=== PATIENT | female | born 1945 | race Caucasian/White ===

== ENCOUNTER 2020-11-13 13:07 | Outpatient (REF) | payer MEDICARE, SELFPAY ==
--- NOTE | 2020-11-13 13:12 | MM_ITS ---
EXAMINATION: MM SCREENING DIGITAL BREAST TOMOSYNTHESIS, BILATERAL CLINICAL INFORMATION: Screening. Asymptomatic. The lifetime risk of breast cancer based on the Tyrer-Cuzick Model is 3%. COMPARISON: Mammography: 07/23/2019, 01/19/2019, 07/20/2018, 07/06/2018, 07/04/2017 TECHNIQUE: Digital breast tomosynthesis is performed in both the craniocaudal and mediolateral oblique views along with computer-aided detection (CAD). Synthesized 2D images are generated from the tomosynthesis. FINDINGS: The breasts are heterogeneously dense, which may obscure small masses (ACR BI-RADS breast composition Category c). There are no significant masses, abnormal calcifications, or other abnormalities. Parenchymal pattern is similar to prior studies. No developing density. Again, there are scattered bilateral round and some coarse and ductal secretory calcifications. No significant changes. MM/MM tomosynthesis screening BI IMPRESSION: No significant changes from prior exams. ASSESSMENT: BI-RADS 2: Benign RECOMMENDATION: Routine annual mammography screening. This patient's information was entered into a reminder system with a target due date for their next mammogram.
== END 2020-11-13 13:08 | disposition home or self-care (01) ==
LOC: HO.MAMMO 13:07
PROVIDERS: PCP Internal Medicine; Visit Provider Internal Medicine
DX: Z12.31 Encounter for screening mammogram for malignant neoplasm of breast (principal)
CPT/HCPCS: 77063; 77067

== ENCOUNTER 2020-12-26 10:41 | Outpatient (REF) | payer MEDICARE, SELFPAY ==
[2020-12-26 14:47] LABS: MANUAL DIFF FLAG NO
[2020-12-26 14:58] LABS: Basophils Absolute Auto 0.1 X10*3/uL (0.0-0.2); Basophils Percent Auto 0.9 % (0-2); Eosinophils Absolute Auto 0.2 X10*3/uL (0.0-0.4); Eosinophils Percent Auto 2.4 % (0-4); Hematocrit 41.5 % (37-47); Hemoglobin 13.4 g/dl (12.0-16.0); Imm Gran Abs Auto 0.03 X10*3/uL (0.00-0.03); Imm Gran Pct Auto 0.4 % (0.0-0.4); Lymphocytes Absolute Auto 2.1 X10*3/uL (1.2-4.9); Lymphocytes Percent Auto 25.9 % (20-40); Mean Corpuscular HGB Conc 32.3 g/dl (31.0-35.0); Mean Corpuscular Hemoglobin 30.1 pg (27.0-33.0); Mean Corpuscular Volume 93.3 fL (80-98); Mean Platelet Volume 11.1 fL (9.4-12.3); Monocytes Absolute Auto 0.7 X10*3/uL (0.1-1.2); Monocytes Percent Auto 8.6 % (2-11); Neutrophils Absolute Auto 4.9 X10*3/uL (2.0-8.3); Neutrophils Percent Auto 61.8 % (45-73); Platelet Count 249 X10*3/uL (160-400); Red Blood Count 4.45 X10*6/uL (4.20-5.50); Red Cell Distribution Width 12.8 % (11.0-16.0); White Blood Count 7.9 X10*3/uL (4.8-10.8)
[2020-12-26 15:25] LABS: Alanine Aminotransferase 19 U/L (0-31); Aspartate Amino Transferase 20 U/L (5-31); Cholesterol 185 mg/dL; Glucose Fasting 79 mg/dL (60-99); HDL Cholesterol 40 mg/dL; LDL Cholesterol Calculated 99 mg/dl; Triglycerides 230 mg/dL
[2020-12-26 15:48] LABS: Vitamin D 25-OH Total 50.5 ng/mL (>30)
== END 2020-12-26 10:42 | disposition home or self-care (01) ==
LOC: HO.HMGCLDS 10:41
PROVIDERS: PCP Internal Medicine; Visit Provider Internal Medicine
DX: Z00.01 Encounter for general adult medical examination with abnormal findings (principal); E66.9 Obesity, unspecified; I10 Essential (primary) hypertension; M17.12 Unilateral primary osteoarthritis, left knee
CPT/HCPCS: 36415; 80061; 82306; 82947; 84450; 84460; 85025

== ENCOUNTER 2021-02-03 14:33 | Outpatient (REF) | payer MEDICARE, SELFPAY ==
[2021-02-03 16:30] LABS: Glucose Urine UA NEG (NEG); Leukocyte Esterase Urine 2+ (NEG); Nitrite Urine POS (NEG); Specific Gravity - Urine >= 1.030 (1.005-1.025); UACC Culture Trigger YES; Urine Blood NEG (NEG); Urine Ketones NEG (NEG); Urine Protein NEG (NEG-TRACE)
[2021-02-03 16:31] LABS: Appearance Urine CLEAR; Color Urine YELLOW
[2021-02-03 17:07] LABS: Bacteria Urine 3+ /LPF; RBC Urine 0 /HPF (0)
[2021-02-03 17:08] LABS: Calcium Oxalate Crystals Urine TRACE /LPF
== END 2021-02-03 14:34 | disposition home or self-care (01) ==
LOC: HO.HMGCLDS 14:33
PROVIDERS: PCP Internal Medicine; Visit Provider Internal Medicine
DX: R31.9 Hematuria, unspecified (principal); R35.0 Frequency of micturition
CPT/HCPCS: 81001; 81003; 87086; 87088; 87186

== ENCOUNTER 2021-03-14 15:11 | Outpatient (REF) | payer MEDICARE, SELFPAY | END 2021-03-14 15:12 | disposition home or self-care (01) | LOC: HO.LAB 15:11 | PROVIDERS: Visit Provider Hospitalist | DX: R30.0 Dysuria (principal) | CPT/HCPCS: 87086; 87088; 87186 ==

== ENCOUNTER 2021-06-19 14:35 | Outpatient (REF) | payer MEDICARE, SELFPAY | END 2021-06-19 14:36 | disposition home or self-care (01) | LOC: HO.LNP 14:35 | PROVIDERS: Visit Provider Hospitalist | DX: R30.0 Dysuria (principal) | CPT/HCPCS: 87086; 87088; 87186 ==

== ENCOUNTER 2021-07-10 10:58 | Outpatient (REF) | payer MEDICARE, SELFPAY ==
[2021-07-10 14:19] LABS: Alanine Aminotransferase 36 U/L (0-31); Anion Gap 15 (12-20); Aspartate Amino Transferase 29 U/L (5-31); Blood Urea Nitrogen 31 mg/dL (9-16); Calcium 10.4 mg/dL (8.4-10.2); Carbon Dioxide 22 mmol/L (22-29); Chloride 106 mmol/L (96-108); Cholesterol 192 mg/dL; Estimated Glomerular Filt Rate 48; Glucose Fasting 98 mg/dL (60-99); HDL Cholesterol 41 mg/dL; LDL Cholesterol Calculated 107 mg/dl; Potassium 3.8 mmol/L (3.3-5.1); Sodium 139 mmol/L (135-145); Triglycerides 223 mg/dL
[2021-07-10 14:41] LABS: Vitamin D 25-OH Total 56.8 ng/mL (>30)
== END 2021-07-10 10:59 | disposition home or self-care (01) ==
LOC: HO.HMGCLDS 10:58
PROVIDERS: PCP Internal Medicine; Visit Provider Internal Medicine
DX: E66.9 Obesity, unspecified (principal); I10 Essential (primary) hypertension; Z78.0 Asymptomatic menopausal state
CPT/HCPCS: 36415; 80048; 80061; 82306; 84450; 84460

== ENCOUNTER 2021-09-29 08:02 | Outpatient (REF) | payer MEDICARE, SELFPAY ==
[2021-09-29 11:51] LABS: Alanine Aminotransferase 31 U/L (0-31); Anion Gap 15 (12-20); Aspartate Amino Transferase 25 U/L (5-31); Blood Urea Nitrogen 20 mg/dL (9-16); Calcium 10.2 mg/dL (8.4-10.2); Carbon Dioxide 27 mmol/L (22-29); Chloride 103 mmol/L (96-108); Cholesterol 195 mg/dL; Estimated Glomerular Filt Rate 57; Glucose Fasting 94 mg/dL (60-99); HDL Cholesterol 41 mg/dL; LDL Cholesterol Calculated 108 mg/dl; Potassium 4.1 mmol/L (3.3-5.1); Sodium 141 mmol/L (135-145); Triglycerides 234 mg/dL
[2021-09-29 12:20] LABS: Vitamin D 25-OH Total 59.8 ng/mL (>30)
== END 2021-09-29 08:03 | disposition home or self-care (01) ==
LOC: HO.HMGCLDS 08:02
PROVIDERS: PCP Internal Medicine; Visit Provider Internal Medicine
DX: E66.9 Obesity, unspecified (principal); I10 Essential (primary) hypertension; Z78.0 Asymptomatic menopausal state
CPT/HCPCS: 36415; 80048; 80061; 82306; 84450; 84460

== ENCOUNTER 2021-11-16 12:21 | Outpatient (REF) | payer MEDICARE, SELFPAY ==
[2021-11-16 14:08] LABS: Anion Gap 11 (12-20); Blood Urea Nitrogen 19 mg/dL (9-16); Calcium 10.8 mg/dL (8.4-10.2); Carbon Dioxide 27 mmol/L (22-29); Chloride 106 mmol/L (96-108); Estimated Glomerular Filt Rate 59; Phosphorus 2.7 mg/dL (2.7-4.5); Potassium 4.3 mmol/L (3.3-5.1); Sodium 140 mmol/L (135-145)
[2021-11-16 14:27] LABS: Creatinine Urine 114.22 mg/dL; Protein/Creatinine Ratio, Ur 0.09 (<0.2); Total Protein Urine Random 10 mg/dL (<12)
[2021-11-16 14:28] LABS: Creatinine Urine 114.34 mg/dL; Microalbum/Creatinine Ratio Ur 36.7 ug/mg cr
[2021-11-16 15:03] LABS: Renal w Reflex Lab Use Only Order verified
== END 2021-11-16 12:22 | disposition home or self-care (01) ==
LOC: HO.HMGCLDS 12:21
PROVIDERS: PCP Internal Medicine; Visit Provider Internal Medicine Nephrology
DX: I12.9 Hypertensive chronic kidney disease with stage 1 through stage 4 chronic kidney disease, or unspecified chronic kidney disease (principal); N18.1 Chronic kidney disease, stage 1; R80.8 Other proteinuria
CPT/HCPCS: 36415; 80051; 82043; 82310; 82565; 84100; 84156; 84520

== ENCOUNTER 2021-11-24 12:14 | Outpatient (REF) | payer MEDICARE, SELFPAY ==
--- NOTE | ~2021-11-24 | MM_ITS ---
EXAMINATION: MM SCREENING DIGITAL BREAST TOMOSYNTHESIS, BILATERAL CLINICAL INFORMATION: Screening. Asymptomatic. The lifetime risk of breast cancer based on the Tyrer-Cuzick Model is 3%. COMPARISON: Mammography: 11/13/2020, 07/23/2019, 01/19/2019, 07/20/2018, 07/06/2018; targeted left breast ultrasound 07/20/2018 TECHNIQUE: Digital breast tomosynthesis is performed in both the craniocaudal and mediolateral oblique views along with computer-aided detection (CAD). Synthesized 2D images are generated from the tomosynthesis. FINDINGS: The breasts are heterogeneously dense, which may obscure small masses (ACR BI-RADS breast composition Category c). Parenchymal pattern is similar to prior studies. Breast tissue composition borders on average fibroglandular. There is no developing density or architectural abnormality. Again, there are scattered bilateral round and ductal secretory calcifications. The axilla are unremarkable. There are some dermal lesions again noted overlying the posterior lower outer left breast better appreciated on tomography. No significant changes. MM/MM tomosynthesis screening BI IMPRESSION: No significant changes from prior studies. ASSESSMENT: BI-RADS 2: Benign RECOMMENDATION: Routine annual mammography screening. This patient's information was entered into a reminder system with a target due date for their next mammogram.
== END 2021-11-24 12:15 | disposition home or self-care (01) ==
LOC: HO.MAMMO 12:14
PROVIDERS: PCP Internal Medicine; Visit Provider Internal Medicine
DX: Z12.31 Encounter for screening mammogram for malignant neoplasm of breast (principal)
CPT/HCPCS: 77063; 77067

== ENCOUNTER 2021-12-22 08:21 | Outpatient (REF) | payer MEDICARE, SELFPAY ==
--- NOTE | ~2021-12-22 | MM_ITS ---
EXAMINATION: BONE DENSITOMETRY CLINICAL INDICATION: Obesity, unspecified. COMPARISON: Previous BD dated 07/06/2018 and baseline BD dated 09/11/2007. TECHNIQUE: Using a [employer] DXA System (software version: 13.1) manufactured by [employer], dual-energy x-ray absorptiometry was performed of the lumbar spine and left hip. The images are of good technical quality. Summary results are attached. FINDINGS: AP SPINE L1-L2 (excluding L3 and L4): The data of L1-L4 has been changed to exclude the L3 and L4 vertebral bodies, because degenerative changes at these levels may cause overestimation of lumbar spine density. Current: BMD 1.064 g/cm2, Z-score 0.1, T-score -0.8, normal, 4.5% decrease from previous, 9.8% increase from baseline (<5% change is not significant). Prior: BMD 1.114 g/cm2. Baseline: BMD 0.969 g/cm2. LEFT FEMUR, NECK: Current: BMD 0.857 g/cm2, Z-score 0.2, T-score -1.3, osteopenia. Prior: BMD 0.862 g/cm2. Baseline: BMD 0.867 g/cm2. LEFT FEMUR, TOTAL: Current: BMD 0.902 g/cm2, Z-score 0.4, T-score -0.8, normal, 1.1% decrease from previous, 4.4% decrease from baseline (<5% change is not significant). Prior: BMD 0.912 g/cm2. Baseline: BMD 0.944 g/cm2. IDENTIFIED RISK FACTORS: Menopause, renal, Thiazide. HISTORY OF FRACTURE: None listed. MEDICATIONS: Calcium, multivitamin. MM/XR DEXA axial skeleton IMPRESSION: 1. DIAGNOSIS: Osteopenia based on the lowest T-score value of -1.3 in the femoral neck applying World Health Organization criteria. 2. 10-YEAR FRACTURE RISK PREDICTION, FRAX: Major osteoporotic fracture (clinical spine, forearm, hip or shoulder) 10.7%. Hip fracture 2.0%. 3. Treatment Recommendations: NOF guidelines recommend consideration for treatment in postmenopausal women and men age 50 and older presenting with the following: -A hip or vertebral (clinical or morphometric) fracture. -T-score less than or equal to -2.5 at the femoral neck or spine after appropriate evaluation to exclude secondary causes. -Low bone mass at the hip or spine and a 10-year fracture probability by FRAX of greater than or equal to 3% for hip fracture or greater than or equal to 20% for major osteoporotic fracture based on the [place] adapted WHO algorithm. 4. Other Recommendations: All treatment decisions require clinical judgment and consideration of individual patient factors, including patient preferences, comorbidities, previous drug use, risk factors not captured in the FRAX model (e.g. frailty, falls, vitamin D deficiency, increased bone turnover, interval significant decline in bone density) and possible under or overestimation of fracture risk by FRAX. Additional medical evaluation for secondary cause of low bone mineral density may be appropriate. FUTURE SCAN RECOMMENDATION: People with diagnosed cases of osteoporosis or at high risk for fracture should have regular bone mineral density tests. For patients eligible for Medicare, routine testing is allowed once every 2 years. The testing frequency can be increased to one year for patients who have rapidly progressing disease, those who are receiving or discontinuing medical therapy to restore bone mass, or have additional risk factors.
== END 2021-12-22 08:22 | disposition home or self-care (01) ==
LOC: HO.MAMMO 08:21
PROVIDERS: PCP Internal Medicine; Visit Provider Internal Medicine
DX: Z13.820 Encounter for screening for osteoporosis (principal); M85.80 Other specified disorders of bone density and structure, unspecified site; Z78.0 Asymptomatic menopausal state; E66.9 Obesity, unspecified; Z79.899 Other long term (current) drug therapy
CPT/HCPCS: 77080

== ENCOUNTER 2021-12-25 10:28 | Outpatient (REF) | payer MEDICARE, SELFPAY ==
[2021-12-25 12:36] LABS: Cholesterol 220 mg/dL; HDL Cholesterol 40 mg/dL; LDL Cholesterol Calculated 115 mg/dl; Triglycerides 327 mg/dL
[2021-12-28 16:41] LABS: PTHI 4 pg/mL (14-64)
[2021-12-28 17:31] LABS: Calcium, Ionized 5.9 mg/dL (4.8-5.6)
== END 2021-12-25 10:29 | disposition home or self-care (01) ==
LOC: HO.HMGCLDS 10:28
PROVIDERS: Visit Provider Internal Medicine
DX: E78.1 Pure hyperglyceridemia (principal); E83.52 Hypercalcemia
CPT/HCPCS: 36415; 80061; 82330; 83970

== ENCOUNTER 2022-01-18 11:55 | Outpatient (REF) | payer MEDICARE, SELFPAY ==
[2022-01-18 14:36] LABS: TSH reflex Free T4 2.55 uIU/mL (0.32-4.0)
[2022-01-19 13:27] LABS: PTHI 34 pg/mL (16-77)
[2022-01-20 14:47] LABS: Calcium, Ionized 5.2 mg/dL (4.8-5.6)
== END 2022-01-18 11:56 | disposition home or self-care (01) ==
LOC: HO.HMGCLDS 11:55
PROVIDERS: Visit Provider Internal Medicine
DX: E83.52 Hypercalcemia (principal); R79.89 Other specified abnormal findings of blood chemistry; R53.83 Other fatigue
CPT/HCPCS: 36415; 82330; 83970; 84443

== ENCOUNTER 2022-03-30 11:09 | Outpatient (REF) | payer MEDICARE, SELFPAY ==
[2022-03-30 14:01] LABS: Anion Gap 13 (12-20); Blood Urea Nitrogen 20 mg/dL (9-16); Calcium 9.7 mg/dL (8.4-10.2); Carbon Dioxide 24 mmol/L (22-29); Chloride 108 mmol/L (96-108); Cholesterol 218 mg/dL; Estimated Glomerular Filt Rate > 60; Glucose Fasting 102 mg/dL (60-99); HDL Cholesterol 37 mg/dL; LDL Cholesterol Calculated 119 mg/dl; Potassium 3.8 mmol/L (3.3-5.1); Sodium 141 mmol/L (135-145); Triglycerides 313 mg/dL
[2022-04-02 20:36] LABS: Calcium, Ionized 5.3 mg/dL (4.8-5.6)
== END 2022-03-30 11:10 | disposition home or self-care (01) ==
LOC: HO.HMGCLDS 11:09
PROVIDERS: Visit Provider Internal Medicine
DX: E78.1 Pure hyperglyceridemia (principal); E83.52 Hypercalcemia
CPT/HCPCS: 36415; 80048; 80061; 82330

== ENCOUNTER 2022-10-01 09:45 | Outpatient (REF) | payer MEDICARE, SELFPAY ==
[2022-10-01 12:27] LABS: Estimated Average Glucose 100 mg/dL; Hemoglobin A1c % 5.1 %
[2022-10-01 14:35] LABS: Alanine Aminotransferase 18 U/L (0-31); Anion Gap 12 (12-20); Aspartate Amino Transferase 17 U/L (5-31); Blood Urea Nitrogen 15 mg/dL (9-16); Calcium 9.4 mg/dL (8.4-10.2); Carbon Dioxide 23 mmol/L (22-29); Chloride 110 mmol/L (96-108); Cholesterol 186 mg/dL; Estimated Glomerular Filt Rate > 60; Glucose Fasting 95 mg/dL (60-99); HDL Cholesterol 36 mg/dL; LDL Cholesterol Calculated 107 mg/dl; Potassium 3.8 mmol/L (3.3-5.1); Sodium 141 mmol/L (135-145); Triglycerides 216 mg/dL; Vitamin D 25-OH Total 39.6 ng/mL (>30)
== END 2022-10-01 09:46 | disposition home or self-care (01) ==
LOC: HO.HMGCLDS 09:45
PROVIDERS: PCP Internal Medicine; Visit Provider Internal Medicine
DX: E78.1 Pure hyperglyceridemia (principal); I10 Essential (primary) hypertension; N95.9 Unspecified menopausal and perimenopausal disorder; R73.01 Impaired fasting glucose; E66.9 Obesity, unspecified
CPT/HCPCS: 36415; 80048; 80061; 82306; 83036; 84450; 84460

== ENCOUNTER 2022-10-23 11:45 | Outpatient (REF) | payer MEDICARE, SELFPAY ==
[2022-10-23 14:08] LABS: Appearance Urine Cloudy; Color Urine Yellow; Glucose Urine UA Negative (Negative); Leukocyte Esterase Urine Large (3+) (Negative); Nitrite Urine Positive (Negative); PH 5.5 (5.0-9.0); UMIC TRIGGER UACC YES; Urine Blood Trace (Negative); Urine Ketones Negative (Negative); Urine Protein Trace mg/dL (Neg-Trace)
[2022-10-23 14:11] LABS: Bacteria Urine 4+ (None Seen); RBC Urine 0-2 /HPF (0-2); Squamous Epithelial Cell Urine 0-2 /HPF (0-2); UACC Culture Trigger YES; WBC Urine >50 /HPF (0-5)
== END 2022-10-23 11:46 | disposition home or self-care (01) ==
LOC: HO.HMGCLDS 11:45
PROVIDERS: PCP Internal Medicine; Visit Provider Internal Medicine
DX: R30.0 Dysuria (principal)
CPT/HCPCS: 81001; 87086; 87088; 87186

== ENCOUNTER 2022-11-08 14:07 | Outpatient (REF) | payer MEDICARE, SELFPAY ==
[2022-11-08 14:25] LABS: Appearance Urine Cloudy; Color Urine Yellow; Glucose Urine UA Negative (Negative); Leukocyte Esterase Urine Large (3+) (Negative); Nitrite Urine Positive (Negative); PH 5.5 (5.0-9.0); UMIC TRIGGER UACC YES; Urine Blood Trace (Negative); Urine Ketones Negative (Negative); Urine Protein 30 (1+) mg/dL (Neg-Trace)
[2022-11-08 14:47] LABS: Bacteria Urine 4+ (None Seen); RBC Urine 0-2 /HPF (0-2); Squamous Epithelial Cell Urine 0-2 /HPF (0-2); UACC Culture Trigger YES; WBC Urine >50 /HPF (0-5)
== END 2022-11-08 14:08 | disposition home or self-care (01) ==
LOC: HO.LNP 14:07
PROVIDERS: Visit Provider Nurse Practitioner Family
DX: N39.0 Urinary tract infection, site not specified (principal)
CPT/HCPCS: 81001; 87086; 87088; 87186

== ENCOUNTER 2022-11-25 18:24 | Outpatient (REF) | payer MEDICARE, SELFPAY ==
[2022-11-25 18:35] LABS: Appearance Urine Clear; Color Urine Yellow; Glucose Urine UA Negative (Negative); Leukocyte Esterase Urine Moderate (2+) (Negative); Nitrite Urine Positive (Negative); PH 5.5 (5.0-9.0); UMIC TRIGGER UACC YES; Urine Blood Negative (Negative); Urine Ketones Negative (Negative); Urine Protein Negative (Neg-Trace)
[2022-11-25 18:41] LABS: Bacteria Urine 4+ (None Seen); Hyaline Casts Urine 0-2 /LPF (0-2); UACC Culture Trigger YES; WBC Urine >50 /HPF (0-5)
== END 2022-11-25 18:25 | disposition home or self-care (01) ==
LOC: HO.LNP 18:24
PROVIDERS: Visit Provider Nurse Practitioner Family
DX: N39.0 Urinary tract infection, site not specified (principal)
CPT/HCPCS: 81001; 87086; 87088; 87186

== ENCOUNTER 2022-11-30 11:11 | Outpatient (REF) | payer MEDICARE, SELFPAY ==
--- NOTE | ~2022-11-30 | MM_ITS ---
EXAMINATION: MM SCREENING DIGITAL BREAST TOMOSYNTHESIS, BILATERAL CLINICAL INFORMATION: Screening. Asymptomatic. The lifetime risk of breast cancer based on the Tyrer-Cuzick Model is 5%. COMPARISON: Mammography: 11/24/2021, 11/13/2020, 07/23/2019 TECHNIQUE: Digital breast tomosynthesis is performed in both the craniocaudal and mediolateral oblique views along with computer-aided detection (CAD). Synthesized 2D images are generated from the tomosynthesis. Additional right MLO view is provided. FINDINGS: The breasts are heterogeneously dense, which may obscure small masses (ACR BI-RADS breast composition Category c). There are no significant masses, abnormal calcifications, or other abnormalities. Parenchymal pattern is similar to prior studies. There is no developing density or architectural abnormality. Again, there are scattered bilateral benign round and ductal secretory calcifications. The axilla are unremarkable. Scattered dermal lesions are seen overlying the breasts particularly lower outer left. MM/MM tomosynthesis screening BI IMPRESSION: No mammographic evidence of malignancy. ASSESSMENT: BI-RADS 2: Benign RECOMMENDATION: Routine annual mammography screening. This patient's information was entered into a reminder system with a target due date for their next mammogram.
== END 2022-11-30 11:12 | disposition home or self-care (01) ==
LOC: HO.MAMMO 11:11
PROVIDERS: Visit Provider Internal Medicine
DX: Z12.31 Encounter for screening mammogram for malignant neoplasm of breast (principal)
CPT/HCPCS: 77063; 77067

== ENCOUNTER → 2022-12-09 12:40 | Outpatient (BNVA) | payer MEDICARE, SELFPAY | PROVIDERS: PCP Internal Medicine; Visit Provider Urology | DX: N39.0 Urinary tract infection, site not specified (principal); N20.0 Calculus of kidney | CPT/HCPCS: 51798; 99202 ==

== ENCOUNTER 2022-12-10 12:40 | Outpatient (REF) | payer MEDICARE, SELFPAY | END 2022-12-10 12:41 | disposition home or self-care (01) | LOC: HO.LNP 12:40 | PROVIDERS: Visit Provider Urology | DX: N39.0 Urinary tract infection, site not specified (principal) | CPT/HCPCS: 87086; 87088 ==

== ENCOUNTER 2023-01-05 15:07 | Outpatient (REF) | payer MEDICARE, SELFPAY ==
--- NOTE | ~2023-01-05 | CT_ITS ---
EXAMINATION: CT ABDOMEN AND PELVIS WITHOUT CONTRAST CLINICAL INFORMATION: Urinary tract infection COMPARISON: None available. TECHNIQUE: Multidetector volumetric imaging was performed from the superior aspect of the liver through the pubic symphysis. Sagittal and coronal reformatted images were obtained on the technologist's workstation. This CT examination was performed using dose optimization techniques as appropriate, variously including the following: *Automated exposure control *Adjustment of mA and/or kV according to patient size (this includes techniques or standardized protocols for targeted exams where dose is matched to indication/reason for exam; i.e. extremities or head) *Use of iterative reconstruction technique DLP: 506 mGy-cm FINDINGS: LUNG BASES: The visualized lung bases are unremarkable. LIVER, GALLBLADDER, AND BILIARY TREE: In the right hepatic lobe there is a 6.7 x 5.5 cm hypoattenuating liver lesion with internal densities which may reflect calcifications versus septations. No intrahepatic biliary ductal dilatation. Cholelithiasis, no CT findings of acute cholecystitis. PANCREAS: Unremarkable. SPLEEN: Unremarkable. ADRENAL GLANDS: Unremarkable. KIDNEYS AND URETERS: The kidneys are normal in size, shape, and attenuation. No hydronephrosis, hydroureter, or calculi seen. No perinephric stranding. BLADDER: Unremarkable. GASTROINTESTINAL TRACT: Mild dilation of the gastric antrum measuring 3.7 x 3.4 disease may reflect peptic ulcerative disease. Large bowel is unremarkable. Appendix is not visualized, however no inflammatory changes are seen in the right lower quadrant ABDOMINAL WALL: No significant hernia is appreciated. LYMPH NODES: Normal. VASCULAR: Unremarkable. PELVIC VISCERA: Unremarkable. OSSEOUS STRUCTURES: Unremarkable. CT/CT abdomen pelvis wo IV con IMPRESSION: 1. Mild dilation of the gastric antrum measuring 3.7 x 3.4 cm may reflect peptic ulcerative disease. 2. Cholelithiasis, no CT findings of acute cholecystitis. 3. 6.7 cm hypoattenuating liver lesion with internal densities which may reflect calcifications versus septations. Recommend further evaluation with CT or MRI liver protocol.
== END 2023-01-05 15:08 | disposition home or self-care (01) ==
LOC: HO.CT 15:07
PROVIDERS: Visit Provider Urology
DX: N39.0 Urinary tract infection, site not specified (principal)
CPT/HCPCS: 74176; 99212

== ENCOUNTER 2023-01-13 09:00 | Outpatient (REF) | payer MEDICARE, SELFPAY ==
[2023-01-13 11:44] LABS: Anion Gap 15 (12-20); Blood Urea Nitrogen 33 mg/dL (9-16); Calcium 10.1 mg/dL (8.4-10.2); Carbon Dioxide 20 mmol/L (22-29); Chloride 109 mmol/L (96-108); Estimated Glomerular Filt Rate 40; Potassium 4.1 mmol/L (3.3-5.1); Sodium 140 mmol/L (135-145)
[2023-01-13 12:02] LABS: Creatinine Urine 177.75 mg/dL; Microalbum/Creatinine Ratio Ur 36.5 ug/mg cr
== END 2023-01-13 09:01 | disposition home or self-care (01) ==
LOC: HO.HMGCLDS 09:00
PROVIDERS: PCP Internal Medicine; Visit Provider Internal Medicine Nephrology
DX: R80.9 Proteinuria, unspecified (principal)
CPT/HCPCS: 36415; 80051; 82043; 82310; 82565; 84520

== ENCOUNTER 2023-02-03 11:30 | Outpatient (REF) | payer MEDICARE, SELFPAY ==
[2023-02-03 14:45] LABS: Alanine Aminotransferase 16 U/L (0-31); Alkaline Phosphatase 88 U/L (39-117); Aspartate Amino Transferase 18 U/L (5-31); Bilirubin Direct 0.2 mg/dL (0.0-0.5); Bilirubin Total 0.6 mg/dL (0.0-1.0); Cholesterol 199 mg/dL; HDL Cholesterol 39 mg/dL; LDL Cholesterol Calculated 124 mg/dl; Total Protein 6.6 g/dL (6.5-8.0); Triglycerides 184 mg/dL
== END 2023-02-03 11:31 | disposition home or self-care (01) ==
LOC: HO.HMGCLDS 11:30
PROVIDERS: PCP Internal Medicine; Visit Provider Internal Medicine
DX: E78.1 Pure hyperglyceridemia (principal); R16.0 Hepatomegaly, not elsewhere classified
CPT/HCPCS: 36415; 80061; 80076

== ENCOUNTER 2023-02-08 11:37 | Outpatient (REF) | payer MEDICARE, SELFPAY ==
[2023-02-08 14:20] LABS: Blood Urea Nitrogen 15 mg/dL (9-16); Estimated Glomerular Filt Rate > 60
[2023-02-08 14:39] LABS: Carcinoembryonic Antigen < 1.73 ng/mL
[2023-02-11 12:53] LABS: Alpha Fetoprotein 3.2 ng/mL
== END 2023-02-08 11:38 | disposition home or self-care (01) ==
LOC: HO.HMGCLDS 11:37
PROVIDERS: PCP Internal Medicine; Visit Provider Internal Medicine
DX: R93.2 Abnormal findings on diagnostic imaging of liver and biliary tract (principal)
CPT/HCPCS: 36415; 82105; 82378; 82565; 84520

== ENCOUNTER 2023-02-23 13:21 | Outpatient (REF) | payer MEDICARE, SELFPAY ==
--- NOTE | ~2023-02-23 | CT_ITS ---
EXAMINATION: CT ABDOMEN WITHOUT AND WITH CONTRAST CLINICAL INFORMATION: Abnormal liver CT COMPARISON: Previous CT of the abdomen and pelvis December 2022 TECHNIQUE: Contiguous axial thin section helical images of the abdomen were performed before and after the administration of oral contrast and 85 mL of Omnipaque 350 intravenous contrast. The data set was reformatted in the coronal and sagittal planes and reviewed on an independent workstation. This CT examination was performed using dose optimization techniques as appropriate, variously including the following: *Automated exposure control *Adjustment of mA and/or kV according to patient size (this includes techniques or standardized protocols for targeted exams where dose is matched to indication/reason for exam; i.e. extremities or head) *Use of iterative reconstruction technique DLP: 680 mGy-cm FINDINGS: LUNG BASES: 3 mm peripheral or subpleural left lower lobe nodule. LIVER, GALLBLADDER, AND BILIARY TREE: There is a large cyst seen in the central liver measuring 5.5 x 6.5 cm. This has small peripheral calcifications. Hounsfield units precontrast measure 18. Hounsfield units postcontrast measure between 21 and 22 with no appreciable enhancement. This is suggestive of a minimally complex cyst. There is a smaller subcentimeter approximately 4 mm lesion high in the dome of the liver axial image 10 series 4. This probably represents a small cyst as well. There is fatty infiltration of the liver. The liver is normal in contour. There is a gallstone in the gallbladder. There is no biliary duct dilatation. 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 The pancreas is otherwise normal. SPLEEN: Normal ADRENAL GLANDS AND KIDNEYS: Slight enlargement and nodularity of the left adrenal gland. The right adrenal gland is normal. BOWEL LOOPS: Duodenal diverticulum as described above. Visualized bowel is otherwise unremarkable. LYMPH NODES: Normal. VASCULAR: Dilated proximal celiac axis measuring 1.2 cm and moderate stenosis of the celiac axis origin. BONES: Degenerative changes of the spine and mild scoliosis. CT/CT abdomen wo/w IV con IMPRESSION: 5.5 x 6.5 cm minimally complex cyst in the central liver. Probable smaller subcentimeter cyst high in the dome of the liver. Gallstone. 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 Fleischner guidelines were followed.
[2023-02-23] MEDS: iohexoL 350 MG/ML 100 ML INFUS..BTL IV (14:11)
== END 2023-02-23 13:22 | disposition home or self-care (01) ==
LOC: HO.CT 13:21
PROVIDERS: PCP Internal Medicine; Visit Provider Internal Medicine
DX: R93.2 Abnormal findings on diagnostic imaging of liver and biliary tract (principal)
CPT/HCPCS: 74170; Q9967

== ENCOUNTER → 2023-03-09 11:22 | Outpatient (BNVA) | payer MEDICARE, SELFPAY | PROVIDERS: PCP Internal Medicine; Visit Provider Urology | DX: N39.0 Urinary tract infection, site not specified (principal) | CPT/HCPCS: 52000 ==

== ENCOUNTER 2023-03-11 14:23 | Outpatient (REF) | payer MEDICARE, SELFPAY | END 2023-03-11 14:24 | disposition home or self-care (01) | LOC: HO.HMGCLDS 14:23 | PROVIDERS: PCP Internal Medicine; Visit Provider Urology | DX: N39.0 Urinary tract infection, site not specified (principal) | CPT/HCPCS: 88121 ==

== ENCOUNTER 2023-03-28 08:55 | Day surgery (SDC) | payer MEDICARE, SELFPAY ==
--- NOTE | 2023-03-25 12:08 | HO.ANESPROP2 ---
Documented by User: Radha Raymond NP 03/25/23 12:09 HPI - Anesthesia Eval Consult details Narrative: 77yo F for Upper Endoscopy and Colonoscopy Stable at 01/2023 renal visit (HTN, Microalbuminuria) [facility] Active Problems Active Problems: All Active Problems (Updated 01/19/23 @ 10:35 by Neeta Pierce MD) Cholelithiasis (Acute) Liver mass (Acute) Vaginal atrophy (Acute) Recurrent UTI (urinary tract infection) (Acute) Impaired fasting glucose (Acute) Hypertriglyceridemia (Acute) Vaginal dryness, menopausal (Acute) Obesity (Acute) Seasonal allergies (Acute) Essential hypertension (Acute) Osteoarthritis of left knee (Acute) Past Medical History Medical History Cholelithiasis Essential hypertension History of basal cell carcinoma Hypertriglyceridemia Impaired fasting glucose Liver mass Obesity Osteoarthritis of left knee Recurrent UTI (urinary tract infection) Right nephrolithiasis Seasonal allergies Vaginal dryness, menopausal Family History Family History Father Essential hypertension CVA (cerebral vascular accident) CVD (cardiovascular disease) Mother Essential hypertension Bone cancer Surgical History Surgical History (Updated 03/28/23 @ 10:18 by Yu Costa) H/O dilation and curettage H/O lithotripsy History of appendectomy History of arthroplasty of left knee History of colonoscopy S/P correction of deviated nasal septum Social History Social History Housing: Condominium Alcohol intake: current Alcohol intake frequency: holidays/special occasions only Patient Tobacco Use Status: Former Tobacco user Tobacco use type: Cigarette Years Smoked: 5 yrs Smoked in Last 30 Days: No e-Cigarette/Vaping Use: Never Used Use of substances other than those prescribed or required for medical reasons: No Are you DNR?: Yes Advance Directives: No Advance Directives Information Provided: Yes Current occupational status: retired Cognitive needs: No Hearing needs: No Vision needs: Yes Meds Allergies Allergy/AdvReac Type Severity Reaction Status Date / Time amoxicillin Allergy Severe rash Verified 03/28/23 10:17 Sulfa (Sulfonamide Allergy Intermediate rash Verified 03/28/23 10:17 Antibiotics) trimethoprim AdvReac Severe Diarrhea Verified 03/28/23 10:17 Seasonal Allergies AdvReac Intermediate Itchy Eyes Verified 03/28/23 10:17 Biaxin Allergy Intermediate rash Uncoded 03/28/23 10:17 nickel? Allergy Intermediate rash Uncoded 03/28/23 10:17 Home Medications Medication Instructions Recorded Confirmed Last Taken Type ascorbic acid (vitamin C) 500 mg 500 mg PO DAILY 09/18/20 03/28/23 Unknown History capsule cholecalciferol (vitamin D3) 25 25 mcg PO DAILY 09/18/20 03/28/23 Unknown History mcg (1,000 unit) capsule docusate sodium 100 mg capsule 100 mg PO DAILY 09/18/20 03/28/23 Unknown History (Colace) losartan 100 mg tablet 100 mg PO DAILY 09/18/20 03/28/23 03/28/23 History glucosamine sulfate 500 mg tablet 500 mg PO DAILY 12/24/20 03/28/23 Unknown History (Glucosamine) loratadine 10 mg tablet (Claritin) 10 mg PO DAILY 07/01/21 03/28/23 Unknown History zinc 50 mg tablet 50 mg PO DAILY 12/25/21 03/28/23 Unknown History cranberry 500 mg capsule 500 mg PO .daily 01/26/22 03/28/23 Unknown History nifedipine 60 mg tablet,extended 60 mg PO DAILY 04/07/22 03/28/23 Unknown History release 24 hr (Procardia XL) Exam Exam Date and Time: March 25, 2023 120 Pertinent Lab Results Pertinent Lab Results: Laboratory Tests 12/26/20 01/13/23 02/08/23 10:45 09:14 12:17 Sodium 140 Potassium 4.1 Chloride 109 H Carbon Dioxide 20 L BUN 15 Creatinine 0.80 Assessment and Plan Assessment Anesthesia Assessment: Chart Reviewed Documented by User: Bella Mclaughlin MD 03/28/23 14:19 [facility] Past Medical History Medical History Cholelithiasis Essential hypertension History of basal cell carcinoma Hypertriglyceridemia Impaired fasting glucose Liver mass Obesity Osteoarthritis of left knee Recurrent UTI (urinary tract infection) Right nephrolithiasis Seasonal allergies Vaginal dryness, menopausal Family History Family History Father Essential hypertension CVA (cerebral vascular accident) CVD (cardiovascular disease) Mother Essential hypertension Bone cancer Family history of problems with anesthesia: No Surgical History Surgical History (Updated 03/28/23 @ 10:18 by Yu Costa) H/O dilation and curettage H/O lithotripsy History of appendectomy History of arthroplasty of left knee History of colonoscopy S/P correction of deviated nasal septum History of Problems with Anesthesia: No Social History [facility] Alcohol intake: current Alcohol intake frequency: holidays/special occasions only Patient Tobacco Use Status: Former Tobacco user Tobacco use type: Cigarette Years Smoked: 5 yrs Smoked in Last 30 Days: No e-Cigarette/Vaping Use: Never Used Use of substances other than those prescribed or required for medical reasons: No Are you DNR?: Yes Advance Directives: No Advance Directives Information Provided: Yes Current occupational status: retired Cognitive needs: No Hearing needs: No Vision needs: Yes Meds Allergies Allergy/AdvReac Type Severity Reaction Status Date / Time amoxicillin Allergy Severe rash Verified 03/28/23 10:17 Sulfa (Sulfonamide Allergy Intermediate rash Verified 03/28/23 10:17 Antibiotics) trimethoprim AdvReac Severe Diarrhea Verified 03/28/23 10:17 Seasonal Allergies AdvReac Intermediate Itchy Eyes Verified 03/28/23 10:17 Biaxin Allergy Intermediate rash Uncoded 03/28/23 10:17 nickel? Allergy Intermediate rash Uncoded 03/28/23 10:17 Home Medications Medication Instructions Recorded Confirmed Last Taken Type ascorbic acid (vitamin C) 500 mg 500 mg PO DAILY 09/18/20 03/28/23 Unknown History capsule cholecalciferol (vitamin D3) 25 25 mcg PO DAILY 09/18/20 03/28/23 Unknown History mcg (1,000 unit) capsule docusate sodium 100 mg capsule 100 mg PO DAILY 09/18/20 03/28/23 Unknown History (Colace) losartan 100 mg tablet 100 mg PO DAILY 09/18/20 03/28/23 03/28/23 History glucosamine sulfate 500 mg tablet 500 mg PO DAILY 12/24/20 03/28/23 Unknown History (Glucosamine) loratadine 10 mg tablet (Claritin) 10 mg PO DAILY 07/01/21 03/28/23 Unknown History zinc 50 mg tablet 50 mg PO DAILY 12/25/21 03/28/23 Unknown History cranberry 500 mg capsule 500 mg PO .daily 01/26/22 03/28/23 Unknown History nifedipine 60 mg tablet,extended 60 mg PO DAILY 04/07/22 03/28/23 Unknown History release 24 hr (Procardia XL) Exam Airway Mallampati Class: II TM Dist: >3cm Neck ROM: Full Heart: rr Lungs: cts Assessment and Plan Assessment Anesthesia Assessment: Anesthesia Plan Discussed Final Anesthetic Review Family History of Problems with Anesthesia: No History of Problems with Anesthesia: No NPO: Yes ASA Class: II Final Preanesthetic Review: No Changes in Pt Med Stat, Meds/Allgs Chart Reviewed, Consent Obtained/Reviewed and Anes Risks/Benef Reviewed Patient Risk: Low Procedure Risk: Low Anesthetic Plan Anesthetic Plan: MAC: Disposition: Standard PACU
[2023-03-28 10:21] VITALS: BMI 29.2
[2023-03-28 10:25] VITALS: BP 147/71; PULSE 63; RESP 16; TEMP 36.3; O2SAT 96
[2023-03-28] MEDS: Lactated Ringers 1,000 ML 100 ML IVCONT (10:39)
[2023-03-28 12:11] VITALS: BP 114/54; PULSE 55; RESP 18; TEMP 36.1; O2SAT 94
--- NOTE | 2023-03-28 12:13 | P.BOP_ITS ---
Brief Operative Note Date of Service: 03/28/23 Pre-op diagnosis: Abnormal CT of stomach, Screening Post-op diagnosis: other (Mild antral gastritis, Diverticulosis) Procedure: EGD with biopsies, Colonoscopy to the cecum and TI Surgeon: Jeb Franklin Anesthesia: MAC Was an Family Intervention Specialist used for this Procedure?: No Estimated blood loss (mL): 2.0 Pathology: other (A. Gastric antrum) Condition: stable Disposition: PACU
[2023-03-28 12:27] VITALS: BP 122/51; PULSE 51; RESP 18; TEMP 36.1; O2SAT 95
--- NOTE | 2023-03-28 12:29 | OP_ITS ---
DATE OF SERVICE: 03/28/2023 SURGEON: Jeb Franklin MD INDICATIONS: The patient presents for evaluation of abnormal CT scan of the stomach and colorectal cancer screening. Full consent has been obtained from her for this, including risks of bleeding and perforation. PREOPERATIVE DIAGNOSIS: Abnormal CT scan of stomach and colorectal cancer screening. POSTOPERATIVE DIAGNOSIS: PROCEDURE PERFORMED: Esophagogastroduodenoscopy with biopsies, and colonoscopy to the cecum and terminal ileum. ESTIMATED BLOOD LOSS: COMPLICATIONS: ANESTHESIA: Monitored anesthesia care. ASSISTANTS: SPECIMENS: POSTOPERATIVE DIAGNOSES: Abnormal CT scan of stomach and colorectal cancer screening, mild gastritis, hiatal hernia, diverticulosis, internal hemorrhoids. DESCRIPTION OF PROCEDURE: The patient was placed in the left lateral decubitus position. The Olympus video gastroscope was passed in the posterior oropharynx and upper esophagus under direct vision. The scope was passed slowly into the distal esophagus. The gastroesophageal junction appeared normal at 36 cm. There was no sign of any esophagitis nor Gonzalez esophagus. The scope entered the stomach. There was a small hiatal hernia. The scope was advanced to pylorus and the duodenum was cannulated to the descending portion. The duodenum including the bulb appeared normal without mass or ulceration. The scope was withdrawn back to the stomach. The gastric antrum had some mild changes of gastritis with erythema and edema, but no erosions nor ulceration. There was good peristalsis. The scope was retroflexed visualizing the proximal stomach carefully, which appeared normal, without any sign of mass or ulceration. The scope was straightened. Biopsies were obtained from the gastric antrum. The scope was withdrawn back to the esophagus. The esophageal mucosa appeared normal. The scope was withdrawn from the patient. She was turned around for the colonoscopy. The digital rectal exam revealed no abnormalities. The Olympus video pediatric colonoscope was entered into the rectum and advanced to the cecum. Advancement to the cecum was somewhat difficult. Once in the cecum, I did identify normal-appearing cecal pouch with appendiceal orifice and a normal-appearing ileocecal valve. The terminal ileum was cannulated and appeared normal. The scope was withdrawn back in the colon. The entire cecum and ileocecal valve appeared normal. The scope was slowly withdrawn assessing all mucosal surfaces carefully. Preparation was excellent. I did not visualize any sign of polyps, colitis, nor angiodysplasia. There was a moderate amount of diverticulosis. In the rectum, scope was retroflexed visualizing internal hemorrhoids, but no other pathology. The rectal mucosa appeared normal. Scope was straightened and withdrawn from the patient. She tolerated the procedure well and was returned to the recovery area in stable condition. IMPRESSION: 1. Mild gastritis. 2. Hiatal hernia. 3. Diverticulosis. 4. Internal hemorrhoids. PLAN: The results of biopsy will be checked. Aside from her long-standing and chronic nausea, which resolves with p.r.n. pradip. She has no other upper GI complaints. While she did have some findings of gastritis, I do not think that needs to be treated at the present time, since she otherwise feels well with a good appetite and no abdominal pain, no reflux. Given today's negative colonoscopy, I do not think she would need any further screening colonoscopies. She was advised not to use any aspirin or NSAIDs for at least a week. Of note, her recent CT scan described the benign liver cyst, but no other worrisome abnormalities. Tumor markers including CEA and alpha fetoprotein level were normal. If things are stable, she will otherwise see me on a p.r.n. basis. MD JETT Baird/SURENDRA / [id number]
== END 2023-03-28 13:05 | disposition home or self-care (01) ==
PROVIDERS: PCP Internal Medicine; Visit Provider Internal Medicine
PROC: (CPT 43239; principal; 2023-03-28 10:30)
DX: Z12.11 Encounter for screening for malignant neoplasm of colon (principal); K57.30 Diverticulosis of large intestine without perforation or abscess without bleeding; K64.8 Other hemorrhoids; R93.3 Abnormal findings on diagnostic imaging of other parts of digestive tract; K29.50 Unspecified chronic gastritis without bleeding; R11.0 Nausea; K76.89 Other specified diseases of liver; K44.9 Diaphragmatic hernia without obstruction or gangrene; I10 Essential (primary) hypertension; N39.3 Stress incontinence (female) (male); J30.2 Other seasonal allergic rhinitis; Z79.899 Other long term (current) drug therapy; Z87.442 Personal history of urinary calculi; Z88.0 Allergy status to penicillin; Z88.1 Allergy status to other antibiotic agents; Z88.2 Allergy status to sulfonamides; Z96.652 Presence of left artificial knee joint; Z87.891 Personal history of nicotine dependence
CPT/HCPCS: 43239; G0121; 88305; 88342

== ENCOUNTER 2023-06-09 14:14 | Outpatient (AMB) | payer MEDICARE, SELFPAY ==
--- NOTE | 2023-06-09 11:07 | MHC.OFFVIS ---
Intake Intake Visit Reasons: 3 month cysto Intake Note: Patient presents today for a CYSTOSCOPY Procedure: Meds: None Allergies to Antibiotic: Trimethoprim, Sulfa & Amoxicillin. Blood Thinner: Furosemide Urinalysis test cleared for Cysto Disposible Uro-G Cystoscope Cannula: Lot: [id number] Exp: 02/18/2025 Customer Support Associate Required: No Accompanied by: Self / Same As Patient Allergies amoxicillin Allergy (Severe, Verified 06/09/23 14:52) rash Sulfa (Sulfonamide Antibiotics) Allergy (Intermediate, Verified 06/09/23 14:52) rash trimethoprim Adverse Reaction (Severe, Verified 06/09/23 14:52) Diarrhea Seasonal Allergies Adverse Reaction (Intermediate, Verified 06/09/23 14:52) Itchy Eyes Biaxin Allergy (Intermediate, Uncoded 06/09/23 14:52) rash nickel? Allergy (Intermediate, Uncoded 06/09/23 14:52) rash HPI HPI Comments History of Present Illness Details Zoya is a 77-year-old female who presents today to the office for a 3-month follow-up. 06/09/2023? Zoya is here for 3-month follow-up cystoscopy procedure. She denies any signs of urinary tract infections. She was last seen by me on 03/09/2023 for recurrent urinary tract infection. Vagifem 10 mcg was reordered, and urine for bladder FISH discussed to be ordered. Results of urine FISH are not available in the chart. Plan was to repeat cystoscopy in 3 months. I reviewed the CT of the abdomen results from 02/23/2023 ADRENAL GLANDS AND KIDNEYS: Slight enlargement and nodularity of the left adrenal gland. The right adrenal gland is normal. No abnormalities reported in the kidneys. Review of charts: Last visit: 03/09/2023? The patient adhered to cipro.? The patient is scheduled for CAT abdomen/pelvis scan later in the afternoon today.? The patient is currently taking prednisone 6 day treatment regiment. Urine culture results reviewed?Collected on 12/10/2022-- Positive for Klebsiella pneumoniae infection. Evaluation today: Blood: Negative, Leukocytes: 2+. Plan: Will place on her suppressive daily dose of? trimethiprim 100mg until follow-up. Advised the patient to take the medication after completing prednisone regime. Orders were written for urine culture. Hold on cystoscopy for today, her CAT scan of abdomen/pelvis scan is pending for this afternoon. Follow-up after 2 months. 03/09/23-- The patient is here after 2 month follow-up and cystoscopy procedure. The patient denies urianry tract symptoms. She is adhering to Vagifem therapy and requests for refill. States having diarrhea with the prophylactically prescribed trimethiprim 100mg and needed to stop. She is been evaluated by GI for the findings of liver and pancreatic changes in the most recent CAT scan. Evaluation today: Blood: negative, leukocytes: 3+. CAT scan results reviewed-- 01/05/23-- Kidneys: WNL, no renal calculi visualized. Cystoscopy findings--Small irregular area on the left side of the bladder neck area about 3 mm.? Plan: Vagifem 10 mcg was reordered. Urine for bladder FISH was ordered. Plan to repeat cystoscopy in 3 months. 06/09/2023: Evaluation today--UA-- Leukocytes: 70 berta/uL; blood: 0. Cystoscopy findings revealed within normal limits; no suspicious bladder lesions. 06/09/2023:Plan: Follow up in 6 months. [facility] Medical History Cholelithiasis Essential hypertension History of basal cell carcinoma Hypertriglyceridemia Impaired fasting glucose Liver mass Obesity Osteoarthritis of left knee Recurrent UTI (urinary tract infection) Right nephrolithiasis Seasonal allergies Vaginal dryness, menopausal Surgical History H/O dilation and curettage H/O lithotripsy History of appendectomy History of arthroplasty of left knee History of colonoscopy S/P correction of deviated nasal septum Family History Father Essential hypertension CVA (cerebral vascular accident) CVD (cardiovascular disease) Mother Essential hypertension Bone cancer Social History Housing: Condominium Alcohol intake: current Alcohol intake frequency: holidays/special occasions only Patient Tobacco Use Status: Former Tobacco user Tobacco use type: Cigarette Years Smoked: 5 yrs e-Cigarette/Vaping Use: Never Used Current occupational status: retired Cognitive needs: No Hearing needs: No Vision needs: Yes Office Procedures Cystoscopy Consent Discussed risk and benefit or proposed procedure with the patient. Information consent for procedure given to the patient. Discussed technical aspects, risks, benefits and alternatives in full. Addressed all of the patient's questions and concerns regarding the procedure. The patient demonstrated knowledge and understanding. They wish to proceed with this procedure. Preparation The patient was prepped in the usual manner. A energy conservation director was present and in the room. Genitalia was prepped with betadine solution in a sterile manner. Lidocaine Jelly 2% was placed into the urethra and 16Fr flexible Olympus cystoscope was inserted into the meatus after adequate lubrication. Procedure Time out per protocol performed. Bladder Inspection Bladder Inspection: The bladder was inspected in its entirety with utilization retroflexion displaying: Tumor(s): none visualized Trabeculation: N/A Mucosal Erthema: N/A Orifices: normal shape and position Urethra: normal Cystoscopy findings: WNL, no suspicious bladder lesions visualized [id number] DISPOSABLE SCOPE URO-G FLEXIBLE SCOPE Procedure code (CPT) selection complete Office Meds lidocaine HCl 2 % mucosal jelly in applicator Performing Provider: Kaylie Rojas MD [place] [facility] [facility] [place] [facility] Administered by: Mami Garcia RN on 06/09/23 14:30 Dose Route Admin Location Dispensed Lot Number Expiration Date [facility] [place] Import Manager 10 mL intra-urethral 20 mL naproxen 500 mg tablet Performing Provider: Kaylie Rojas MD [place]forming [place] [facility] [facility] [place] [facility] Administered by: Mami Garcia RN on 06/09/23 14:30 Dose Route Admin Location Dispensed Lot Number Expiration Date [facility] [place] Import Manager 500 mg PO 1 tab ciprofloxacin HCl 500 mg tablet Performing Provider: Kaylie Rojas MD [place]forming [place] [facility] [facility] [place] [facility] Administered by: Mami Garcia RN on 06/09/23 14:30 Dose Route Admin Location Dispensed Lot Number Expiration Date [facility] Import Manager 500 mg PO 1 tab Results AMB Urinalysis, Automated UA Leukoctes 70 Berta/uL Last Edit by Yaz Guzman [facility] on 06/09/23 14:57 1+ Yaz Guzman 06/09/23 14:57 UA Nitrite Negative Last Edit by Yaz Guzman [facility] on 06/09/23 14:57 UA Urobilinogen 0.2 mg/dL Last Edit by Yaz Guzman [facility] on 06/09/23 14:57 UA Protein 0 mg/dL Last Edit by Yaz Guzman [facility] on 06/09/23 14:57 UA pH 6.0 Last Edit by Yaz Guzman [facility] on 06/09/23 14:57 UA Blood 0 Dagoberto/uL Last Edit by Yaz Guzman [facility] on 06/09/23 14:57 UA Specific [place] 1.015 Last Edit by Yaz Guzman [facility] on 06/09/23 14:57 UA Ketone Negative Last Edit by Yaz Guzman [facility] on 06/09/23 14:57 UA Bilirubin 0 mg/dL Last Edit by Yaz Guzman [facility] on 06/09/23 14:57 UA Glucose 0 mg/dL Last Edit by Yaz Guzman [facility] on 06/09/23 14:57 Results Reviewed Results Reviewed: Laboratory Last Values Urine pH (Auto) 6.0 06/09/23 14:55 Specific [place] (Auto) 1.015 06/09/23 14:55 Urine Protein (Auto) 0 mg/dL 06/09/23 14:55 Glucose (UA)(Auto) 0 mg/dL 06/09/23 14:55 Urine Ketones (Auto) Negative 06/09/23 14:55 Urine Blood (Auto) 0 Dagoberto/uL 06/09/23 14:55 Urine Nitrite (Auto) Negative 06/09/23 14:55 Urine Bilirubin (Auto) 0 mg/dL 06/09/23 14:55 Urine Urobilinogen (Auto) 0.2 mg/dL 06/09/23 14:55 Leukocyte Esterase (Auto) 70 Berta/uL 06/09/23 14:55 Date of Service: 02/23/23 EXAMINATION: CT ABDOMEN WITHOUT AND WITH CONTRAST CLINICAL INFORMATION: Abnormal liver CT? COMPARISON: Previous CT of the abdomen and pelvis December 2022 FINDINGS: LUNG BASES: 3 mm peripheral or subpleural left lower lobe nodule.? LIVER, GALLBLADDER, AND BILIARY TREE: There is a large cyst seen in the central liver measuring 5.5 x 6.5 cm. This has small peripheral calcifications. Hounsfield units precontrast measure 18. Hounsfield units postcontrast measure between 21 and 22 with no appreciable enhancement. This is suggestive of a minimally complex cyst. There is a smaller subcentimeter approximately 4 mm lesion high in the dome of the liver axial image 10 series 4. This probably represents a small cyst as well. There is fatty infiltration of the liver. The liver is normal in contour. There is a gallstone in the gallbladder. There is no biliary duct dilatation.? 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 The pancreas is otherwise normal.? SPLEEN: Normal? ADRENAL GLANDS AND KIDNEYS: Slight enlargement and nodularity of the left adrenal gland. The right adrenal gland is normal. BOWEL LOOPS: Duodenal diverticulum as described above. Visualized bowel is otherwise unremarkable.? LYMPH NODES: Normal. VASCULAR: Dilated proximal celiac axis measuring 1.2 cm and moderate stenosis of the celiac axis origin. BONES: Degenerative changes of the spine and mild scoliosis.? IMPRESSION: 5.5 x 6.5 cm minimally complex cyst in the central liver. Probable smaller subcentimeter cyst high in the dome of the liver. Gallstone. 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 Assessment & Plan Assessment & Plan (1) Recurrent UTI (urinary tract infection): Code(s): N39.0 - Urinary tract infection, site not specified Plan Follow up in 6 months. Orders: Orders AMB Cystoscopy 06/09/23 N39.0 - Urinary tract infection, site not specified AMB Urinalysis Automated 06/09/23 Z13.9 - Encounter for screening, unspecified Patient Instructions: The patient had an opportunity to ask questions regarding treatment plan. All questions were answered. Imaging, Laboratory studies and physical exam results were discussed and reviewed in detail. No major barriers to understanding were identified. The patient expressed understanding and agreement with the above treatment plan.? ? ? The patient is aware they should contact our office by phone for worsening of their current condition or the appearance of new symptoms. Compliance is encouraged with any medications and followup testing that is ordered.? ? ? It is a privilege to be allowed the opportunity to participate in the urologic care of your patient. If you have any questions or concerns regarding treatment for the above conditions please do not hesitate to contact me. The office telephone contact is [phone].? ? ? This note is constructed in part using voice recognition software. While every effort has been made to ensure accuracy senior counsel commercial errors may have been included.? ? ? Yours sincerely,? ? ? Kaylie Rojas MD? Coding Level of Care Code Procedure Only Diagnoses Recurrent UTI (urinary tract infection) N39.0 CPT Codes Cystoscopy - CPT: [id number] ([id number]) Cystoscopy - CPT: DISPOSABLE SCOPE URO-G FLEXIBLE SCOPE ([id number])
== END 2023-06-09 15:27 | disposition home or self-care (01) ==
PROVIDERS: PCP Internal Medicine; Visit Provider Urology
DX: N39.0 Urinary tract infection, site not specified (principal)
CPT/HCPCS: 52000

== ENCOUNTER → 2023-06-09 14:14 | Outpatient (BNVA) | payer MEDICARE, SELFPAY | PROVIDERS: Visit Provider Urology | DX: N39.0 Urinary tract infection, site not specified (principal) | CPT/HCPCS: 52000; 81003 ==

== ENCOUNTER 2023-07-19 11:28 | Outpatient (REF) | payer MEDICARE, SELFPAY ==
[2023-07-19 13:52] LABS: Alanine Aminotransferase 10 U/L (0-31); Albumin Level 4.1 g/dL (3.5-5.0); Alkaline Phosphatase 72 U/L (39-117); Anion Gap 12 (12-20); Aspartate Amino Transferase 16 U/L (5-31); Bilirubin Total 0.4 mg/dL (0.0-1.0); Blood Urea Nitrogen 13 mg/dL (9-16); Calcium 9.7 mg/dL (8.4-10.2); Carbon Dioxide 24 mmol/L (22-29); Chloride 109 mmol/L (96-108); Cholesterol 188 mg/dL (<200); Estimated Glomerular Filt Rate > 60; Glucose Fasting 91 mg/dL (60-99); HDL Cholesterol 40 mg/dL (>40); LDL Cholesterol Calculated 113 mg/dL (<100); Potassium 3.7 mmol/L (3.3-5.1); Sodium 141 mmol/L (135-145); Total Protein 7.1 g/dL (6.5-8.0); Triglycerides 179 mg/dL (<150)
[2023-07-19 14:11] LABS: Vitamin D 25-OH Total 50.2 ng/mL (>30)
== END 2023-07-19 11:29 | disposition home or self-care (01) ==
LOC: HO.HMGCLDS 11:28
PROVIDERS: PCP Internal Medicine; Visit Provider Internal Medicine
DX: K80.20 Calculus of gallbladder without cholecystitis without obstruction (principal); R16.0 Hepatomegaly, not elsewhere classified; E78.1 Pure hyperglyceridemia; I10 Essential (primary) hypertension; M85.80 Other specified disorders of bone density and structure, unspecified site; Z78.0 Asymptomatic menopausal state
CPT/HCPCS: 36415; 80053; 80061; 82306

== ENCOUNTER 2023-07-21 13:22 | Outpatient (AMB) | payer MEDICARE, SELFPAY ==
--- NOTE | 2023-07-21 13:24 | A.OFFPC_ITS ---
Vital Signs 07/21/23 13:25 Height 5 ft 6 in Weight 185 lb 4 oz BMI 29.9 BP 132/74 Blood Pressure Location Rt brachial Position Sitting Pulse 80 Pulse Source Pulse Oximeter Pulse Oximetry (%) 97 Oxygen Delivery Method Room Air Intake Visit Reasons: 6 MOhypertension hypertriglyceridemia Intake Note: pt is here for a 6 month follow up for HTN and Labs for increased trigs pt says she will be getting Flu vaccine and covid vaccine at the Pharmacy Allergies amoxicillin Allergy (Severe, Verified 07/21/23 13:43) rash Sulfa (Sulfonamide Antibiotics) Allergy (Intermediate, Verified 07/21/23 13:43) rash trimethoprim Adverse Reaction (Severe, Verified 07/21/23 13:43) Diarrhea Seasonal Allergies Adverse Reaction (Intermediate, Verified 07/21/23 13:43) Itchy Eyes Biaxin Allergy (Intermediate, Uncoded 07/21/23 13:43) rash nickel? Allergy (Intermediate, Uncoded 07/21/23 13:43) rash Medication List - Last Reconciled 07/21/23 by Neeta Pierce MD ascorbic acid (vitamin C) 500 mg PO DAILY cholecalciferol (vitamin D3) 25 mcg PO DAILY cranberry 500 mg PO .daily docusate sodium (Colace) 100 mg PO DAILY estradiol (Vagifem) 10 mcg vaginal 2XW furosemide 20 mg PO QAM glucosamine sulfate (Glucosamine) 500 mg PO DAILY loratadine (Claritin) 10 mg PO DAILY losartan 100 mg PO DAILY metoprolol succinate ER 50 mg PO DAILY nifedipine ER (Procardia XL) 60 mg PO DAILY zinc 50 mg PO DAILY Tobacco use date assessed: 07/21/23 Fall risk assessment: No Falls in past year Last assessed Fall Risk: 07/21/23 Dental Screening Dental Screen Date: 07/21/23 Did you have a dental visit in the last 12 months?: Yes Did you have a dental problem in the last 6 months where you did not have access to dental care?: No Was dental information given to patient?: Patient has dentist HPI 6 MOhypertension hypertriglyceridemia HPI Details 77-year-old lady with hypertension, and hypertriglyceridemia, here today for follow-up. She has been compliant with taking medications, following a healthy diet, and stays active. Recent fasting labs showed lipids within normal limits as well as fasting glucose. Found to have a gallstone on CT scan of abdomen done last year,, currently asymptomatic PFSH Medical History Cholelithiasis Essential hypertension History of basal cell carcinoma Hypertriglyceridemia Impaired fasting glucose Liver mass Obesity Osteoarthritis of left knee Recurrent UTI (urinary tract infection) Right nephrolithiasis Seasonal allergies Vaginal dryness, menopausal Surgical History History of appendectomy S/P correction of deviated nasal septum H/O dilation and curettage History of colonoscopy H/O lithotripsy History of arthroplasty of left knee Family History Father Essential hypertension CVA (cerebral vascular accident) CVD (cardiovascular disease) Mother Essential hypertension Bone cancer [facility] Alcohol intake: current Alcohol intake frequency: holidays/special occasions only Patient Tobacco Use Status: Former Tobacco user Tobacco use type: Cigarette Years Smoked: 5 yrs e-Cigarette/Vaping Use: Never Used Current occupational status: retired Cognitive needs: No Hearing needs: No Vision needs: Yes Questionnaire PHQ-9 Over the last 2 weeks, how often have you been bothered by any of the following problems? Depression Screening Interpretation: Negative Depression Screening Done: Yes Source: Developed by Drs. Jeb Hunter, Radha Snell, Bebeto Smith and colleagues, with an educational amita from [employer]. Thrive Questionnaire Date Thrive assessed: 01/19/23 BOOM-7 AMB Questionnaire BOOM-7 Date BOOM - 7 assessed: 01/19/23 Source: Developed by Drs. Jeb Hunter, Radha Snell, Bebeto Smith and colleagues, with an educational amita from [employer]. Review of Systems Const Reports no additional complaints Eyes Reports no additional complaints ENT Reports no additional complaints Card Denies dyspnea Resp Denies cough and Denies dyspnea GI Reports no additional complaints Reports no additional complaints Musc Reports no additional complaints Skin/Breast Denies rash and Denies unusual bruising Neuro Reports no additional complaints Psych Reports no additional complaints Endo Reports no additional complaints Jeremias/Lymph Reports no additional complaints Aller/Immun Reports no additional complaints Physical exam (Primary Care) Vital Signs: Last Vital Signs Pulse 80 07/21/23 13:25 BP 132/74 07/21/23 13:25 Pulse Ox 97 07/21/23 13:25 Oxygen Delivery Method Room Air 07/21/23 13:25 BMI result Body Mass Index 29.9 Tobacco/Smoking Status: Tobacco use Status Tobacco use date assessed 07/21/23 07/21/23 13:28 Patient Tobacco Use Status Former Tobacco user 07/21/23 13:24 Tobacco use type Cigarette 07/21/23 13:24 e-Cigarette/Vaping Use Never Used 07/21/23 13:24 Depression Screening Interpretation: Negative Thrive Assessment: Date of Thrive Assessment Date Thrive assessed 01/19/23 07/21/23 13:24 Const General: comfortable, no acute distress and alert Orientation/consciousness: oriented to time and patient oriented x3 HENMT Mouth: Normal oral and palatal mucosa present Eyes General: appearance normal, both eyes and all related structures Neck Neck: Yes full ROM, Yes no lymphadenopathy and Yes supple Resp Auscultation: clear to auscultation bilaterally Cardio Rate: regular rate Rhythm: regular rhythm Heart sounds: S1 normal heart sound present and S2 normal heart sound present GI Palpation (GI): Soft to palpation, nontender and no guarding Auscultation: normal bowel sounds Back/Spine/Pelvis Other: Back nontender to palpation Skin General skin exam: no rashes or lesions noted Neuro General: oriented to time, patient oriented x3, gait normal, moves all extremities and no focal motor deficits Extrem General: Yes full ROM, Yes no joint enlargement, Yes no pedal edema, Yes no calf tenderness and Yes normal gait Psych Appearance: grossly normal and well kempt Mental Status: mental status grossly normal Speech and movement: Normal speech and movement present Affect: normal affect Attitude: cooperative Results Reviewed Results Reviewed: ENTERED: 07/19/23-[address]: ORDERED: CMP Fast, Lipid Panel, Vitamin D 25-OH Test Result Flag Reference Site Sodium 141 135-145 mmol/L Potassium 3.7 3.3-5.1 mmol/L CL 109 H 96-108 mmol/L CO2 24 22-29 mmol/L Gap 12 12-20 BUN 13 9-16 mg/dL Creat 0.73 0.5-1.4 mg/dL EGFR > 60 NOTE: For -[place] individuals, multiply the result by 1.210. Chronic Kidney Disease: Estimated GFR < 60 mL/min/1.73m2 Severe Kidney Disease: Estimated GFR < 15 mL/min/1.73m2 FBS 91 60-99 mg/dL CA 9.7 8.4-10.2 mg/dL Total Bili 0.4 0.0-1.0 mg/dL AST (GOT) 16 5-31 U/L ALT (GPT) 10 0-31 U/L Protein, Total 7.1 6.5-8.0 g/dL Alb 4.1 3.5-5.0 g/dL Triglyceride 179 H <150 mg/dL Desirable Triglyceride: less than 150 mg/dL Borderline High Triglyceride 150-199 mg/dL High Triglyceride: 200-499 mg/dL Very High Triglyceride: greater than or equal to 5OO mg/dL Cholesterol 188 <200 mg/dL Desirable Cholesterol: less than 200 mg/dL Borderline High Cholesterol: 200-239 mg/dL High Cholesterol: greater than 239 mg/dL LDL Calculated 113 H <100 mg/dL Desirable LDL: less than 100 mg/dL Near Optimal/Above Optimal LDL: 110-129 mg/dL Borderline High LDL: 130-159 mg/dL High LDL: 160-189 mg/dL Very High LDL: greater than or equal to 190 mg/dL HDL 40 L >40 mg/dL Desirable HDL: greater than 40 mg/dL Note: This HDL assay may give artificially low results in patients with liver disease. Alk Phos 72 39-117 U/L Vit D 25-OH Tot 50.2 >30 ng/mL Health Based Reference Values* < 20 ng/mL Deficient 20-30 ng/mL Insufficient > 30 ng/mL Sufficient Assessment and Plan Assessment & Plan (1) Hypertriglyceridemia: Code(s): E78.1 - Pure hyperglyceridemia Plan: Reviewed recent fasting lipid profile with patient with mildly elevated triglycerides, normal LDL cholesterol recommended start taking [place] 3 fatty acid supplements and adhere to low-cholesterol diet. Advised patient to make healthy food choices, eat more fruits, vegetables, whole grains, wild caught fish and low-fat dairy. Limit amount of meat and fried or fatty food products, as well as processed foods and fast foods. Follow-up scheduled with repeat f asting lipid panel in 6 months. (2) Essential hypertension: Code(s): I10 - Essential (primary) hypertension Plan: Blood pressure at goal of less than 130/80. Continue with current medication. Reinforced importance of following a low sodium diet, getting regular exercise, and lowering stress levels. (3) Cholelithiasis: Code(s): K80.20 - Calculus of gallbladder without cholecystitis without obstruction Qualifiers: Biliary obstruction: without biliary obstruction Cholecystitis presence: without cholecystitis Cholelithiasis location: gallbladder Qualified Code(s): K80.20 - Calculus of gallbladder without cholecystitis without obstruction Plan: Currently symptomatic, advised to avoid high fat meal Orders: Orders Hemoglobin and Hematocrit 6 Months K80.20 - Calculus of gallbladder without cholecystitis without obstruction, E78.1 - Pure hyperglyceridemia, I10 - Essential (primary) hypertension Lipid Panel 6 Months K80.20 - Calculus of gallbladder without cholecystitis without obstruction, E78.1 - Pure hyperglyceridemia, I10 - Essential (primary) hypertension Basic Metabolic Panel Fasting 6 Months K80.20 - Calculus of gallbladder without cholecystitis without obstruction, E78.1 - Pure hyperglyceridemia, I10 - Essential (primary) hypertension Aspartate Amino Transferase 6 Months K80.20 - Calculus of gallbladder without cholecystitis without obstruction, E78.1 - Pure hyperglyceridemia, I10 - Essential (primary) hypertension Alanine Aminotransferase 6 Months K80.20 - Calculus of gallbladder without cholecystitis without obstruction, E78.1 - Pure hyperglyceridemia, I10 - Essential (primary) hypertension Vitamin D 25-OH Total 6 Months K80.20 - Calculus of gallbladder without cholecystitis without obstruction, E78.1 - Pure hyperglyceridemia, I10 - Esse ntial (primary) hypertension Coding Level of Care Code Est Pt Level 4 (17483) Diagnoses Hypertriglyceridemia E78.1 Essential hypertension I10 Calculus of gallbladder without cholecystitis without obstruction K80.20 Biliary obstruction: without biliary obstruction Cholecystitis presence: without cholecystitis Cholelithiasis location: gallbladder
[2023-07-21 13:25] VITALS: BP 132/74; PULSE 80; O2SAT 97; BMI 29.9
== END 2023-07-21 15:48 | disposition home or self-care (01) ==
PROVIDERS: Visit Provider Internal Medicine
DX: E78.1 Pure hyperglyceridemia (principal); I10 Essential (primary) hypertension; K80.20 Calculus of gallbladder without cholecystitis without obstruction
CPT/HCPCS: 99214

== ENCOUNTER 2023-08-09 12:59 | Outpatient (REF) | payer MEDICARE, SELFPAY ==
[2023-08-09 16:27] LABS: Appearance Urine Cloudy; Color Urine Yellow; Glucose Urine UA Negative (Negative); Leukocyte Esterase Urine Large (3+) (Negative); Nitrite Urine Positive (Negative); PH 5.5 (5.0-9.0); Specific Gravity - Urine 1.015 (1.005-1.025); UMIC TRIGGER UA YES; Urine Blood Trace (Negative); Urine Ketones Negative (Negative); Urine Protein Trace mg/dL (Neg-Trace)
[2023-08-09 17:13] LABS: Bacteria Urine 4+ (None Seen); RBC Urine 0-2 /HPF (0-2); WBC Clumps Urine Present; WBC Urine >50 /HPF (0-5)
== END 2023-08-09 13:00 | disposition home or self-care (01) ==
LOC: HO.HMGCLDS 12:59
PROVIDERS: PCP Internal Medicine; Visit Provider Urology
DX: N39.0 Urinary tract infection, site not specified (principal)
CPT/HCPCS: 81001; 87086; 87088; 87186

== ENCOUNTER 2023-10-14 11:41 | Outpatient (REF) | payer MEDICARE, SELFPAY ==
[2023-10-14 13:41] LABS: Appearance Urine Cloudy; Color Urine Yellow; Glucose Urine UA Negative (Negative); Leukocyte Esterase Urine Moderate (2+) (Negative); Nitrite Urine Positive (Negative); Specific Gravity - Urine 1.025 (1.005-1.025); UMIC TRIGGER UA YES; Urine Blood Negative (Negative); Urine Ketones Negative (Negative); Urine Protein 30 (1+) mg/dL (Neg-Trace)
[2023-10-14 13:51] LABS: RBC Urine >20 /HPF (0-2); WBC Urine 21-50 /HPF (0-5)
[2023-10-14 13:52] LABS: Bacteria Urine 4+ (None Seen); Hyaline Casts Urine 0-2 /LPF (0-2)
== END 2023-10-14 11:42 | disposition home or self-care (01) ==
LOC: HO.HMGCLDS 11:41
PROVIDERS: PCP Internal Medicine; Visit Provider Urology
DX: N39.0 Urinary tract infection, site not specified (principal)
CPT/HCPCS: 81001; 87086; 87088; 87186

== ENCOUNTER 2023-11-11 14:26 | Outpatient (REF) | payer MEDICARE, SELFPAY ==
[2023-11-11 16:04] LABS: Appearance Urine Clear; Color Urine Yellow; Glucose Urine UA Negative (Negative); Leukocyte Esterase Urine Trace (Negative); Nitrite Urine Positive (Negative); PH 5.5 (5.0-9.0); UMIC TRIGGER UA YES; Urine Blood Negative (Negative); Urine Ketones Negative (Negative); Urine Protein Negative (Neg-Trace)
[2023-11-11 16:09] LABS: Bacteria Urine 4+ (None Seen); Hyaline Casts Urine 0-2 /LPF (0-2); RBC Urine 0-2 /HPF (0-2); Squamous Epithelial Cell Urine 0-2 /HPF (0-2); WBC Urine 0-5 /HPF (0-5)
== END 2023-11-11 14:27 | disposition home or self-care (01) ==
LOC: HO.HMGCLDS 14:26
PROVIDERS: PCP Internal Medicine; Visit Provider Urology
DX: N39.0 Urinary tract infection, site not specified (principal)
CPT/HCPCS: 81001; 87086; 87088; 87186

== ENCOUNTER 2023-12-09 09:18 | Outpatient (REF) | payer MEDICARE, SELFPAY ==
--- NOTE | ~2023-12-09 | MM_ITS ---
EXAMINATION: MM SCREENING DIGITAL BREAST TOMOSYNTHESIS, BILATERAL CLINICAL INFORMATION: Screening. Asymptomatic. COMPARISON: Mammography: This study is compared with prior exams dating back to 2018. TECHNIQUE: Digital breast tomosynthesis is performed in both the craniocaudal and mediolateral oblique views along with computer-aided detection (CAD). Synthesized 2D images are generated from the tomosynthesis. FINDINGS: There are scattered areas of fibroglandular density (ACR BI-RADS breast composition Category b). There are no significant masses, abnormal calcifications, or other abnormalities. Scattered, bilateral, benign calcifications are present. MM/MM tomosynthesis screening BI IMPRESSION: No mammographic evidence of malignancy. ASSESSMENT: BI-RADS BI-RADS 2 - Benign Findings RECOMMENDATION: Routine annual mammography screening. 1 year F/U This examination should not preclude the clinical evaluation of a suspicious palpable abnormality. This patient's information was entered into a reminder system with a target due date for their next mammogram.
== END 2023-12-09 09:19 | disposition home or self-care (01) ==
LOC: HO.MAMMO 09:18
PROVIDERS: PCP Internal Medicine; Visit Provider Internal Medicine
DX: Z12.31 Encounter for screening mammogram for malignant neoplasm of breast (principal)
CPT/HCPCS: 77063; 77067

== ENCOUNTER → 2023-12-09 09:30 | Outpatient (BNV) | payer MEDICARE, SELFPAY | PROVIDERS: PCP Internal Medicine; Visit Provider Radiology Diagnostic Radiology | DX: Z12.31 Encounter for screening mammogram for malignant neoplasm of breast (principal) | CPT/HCPCS: 77063; 77067 ==

== ENCOUNTER → 2023-12-23 13:59 | Outpatient (BNVA) | payer MEDICARE, SELFPAY | PROVIDERS: PCP Internal Medicine; Visit Provider Urology ==

== ENCOUNTER 2024-01-12 15:35 | Outpatient (REF) | payer MEDICARE, SELFPAY ==
[2024-01-12 20:15] LABS: Urine Cytology See Pathology rpt
== END 2024-01-12 15:36 | disposition home or self-care (01) ==
LOC: HO.LAB 15:35
PROVIDERS: PCP Internal Medicine; Visit Provider Urology
DX: Z13.9 Encounter for screening, unspecified (principal); N39.0 Urinary tract infection, site not specified
CPT/HCPCS: 81003; 87086; 87088; 87186; 88112; 99212

== ENCOUNTER 2024-01-12 15:35 | Outpatient (AMB) | payer MEDICARE, SELFPAY ==
--- NOTE | 2024-01-12 15:48 | MHC.OFFVIS ---
Intake Intake Visit Reasons: 6m follow up Intake Note: Patient presents today for a 6mo follow-up on UTI: Meds: Cranberry, Estradiol, fosfomycin Allergies to Antibiotic: Trimethoprim, Sulfa & Amoxicillin. Blood Thinner: Furosemide Editor Index Required: No Accompanied by: Self / Same As Patient Allergies amoxicillin Allergy (Severe, Verified 01/12/24 15:50) rash Sulfa (Sulfonamide Antibiotics) Allergy (Intermediate, Verified 01/12/24 15:50) rash trimethoprim Adverse Reaction (Severe, Verified 01/12/24 15:50) Diarrhea Seasonal Allergies Adverse Reaction (Intermediate, Verified 01/12/24 15:50) Itchy Eyes Biaxin Allergy (Intermediate, Uncoded 01/12/24 15:50) rash nickel? Allergy (Intermediate, Uncoded 01/12/24 15:50) rash Medication List - Last Reconciled 01/12/24 by Kaylie Rojas MD ascorbic acid (vitamin C) 500 mg PO DAILY cholecalciferol (vitamin D3) 25 mcg PO DAILY clindamycin HCl 150 mg PO TID 5 days cranberry 500 mg PO .daily docusate sodium (Colace) 100 mg PO DAILY estradiol (Vagifem) 10 mcg vaginal 2XW furosemide 20 mg PO QAM glucosamine sulfate (Glucosamine) 500 mg PO DAILY loratadine (Claritin) 10 mg PO DAILY losartan 100 mg PO DAILY methenamine hippurate (Hiprex) 1 g PO DAILY metoprolol succinate ER 50 mg PO DAILY nifedipine ER (Procardia XL) 60 mg PO DAILY tamsulosin (Flomax) 0.4 mg PO BEDTIME zinc 50 mg PO DAILY HPI HPI Comments History of Present Illness Details 01/12/2024--Ab is a 78-year-old female who has been followed due to recurrent UTIs. She was seen last in the office 06/09/2023 --cystoscopy findings at that time, revealed no suspicious bladder lesions. Since office visit she has called several times and left urine to be sent for culture. She had urine last checked for Microgen analysis and antibiotics were tailored based on results. Today she states she feels that the UTI has cleared up. She is complaining that she does have to push to empty and has a weak stream. Bladder scan PVR 175 mL. I have discussed a trial of alpha-munira Flomax. I will add Hiprex 1 g daily. She already takes vitamin-C 500 mg, cranberry supplements and Vagifem. Review of chart 06/09/2023? Zoya is here for 3-month follow-up cystoscopy procedure. She denies any signs of urinary tract infections. She was last seen by me on 03/09/2023 for recurrent urinary tract infection. Vagifem 10 mcg was reordered, and urine for bladder FISH discussed to be ordered. Results of urine FISH are not available in the chart. Plan was to repeat cystoscopy in 3 months. Evaluation today--UA-- Leukocytes: 70 berta/uL; blood: 0. Cystoscopy findings revealed within normal limits; no suspicious bladder lesions. 03/09/23-- The patient is here after 2 month follow-up and for cystoscopy procedure. The patient denies urianry tract symptoms. She is adhering to Vagifem therapy and requests for refill. States having diarrhea with the prophylactically prescribed trimethiprim 100mg and needed to stop. She is been evaluated by GI for the findings of liver and pancreatic changes in the most recent CAT scan. Evaluation today: Blood: negative, leukocytes: 3+. CAT scan results reviewed-- 01/05/23-- Kidneys: WNL, no renal calculi visualized. Cystoscopy findings--Small irregular area on the left side of the bladder neck area about 3 mm. Plan to repeat cystoscopy in 2-3 months. Review of imaging CT of the abdomen results from 02/23/2023 ADRENAL GLANDS AND KIDNEYS: Slight enlargement and nodularity of the left adrenal gland. The right adrenal gland is normal. No abnormalities reported in the kidneys. 01/05/2023-- The patient adhered to cipro The patient is scheduled for CAT abdomen/pelvis scan later in the afternoon today. The patient is currently taking prednisone 6 day treatment regiment. Urine culture results reviewed?Collected on 12/10/2022-- Positive for Klebsiella pneumoniae infection. Evaluation today: Blood: Negative, Leukocytes: 2+. Plan: Will place on her suppressive daily dose of trimethiprim 100mg until follow-up. Advised the patient to take the medication after completing prednisone regime. Orders were written for urine culture. Hold on cystoscopy for today, her CAT scan of abdomen/pelvis scan is pending for this afternoon.I will review it. Follow-up after 2 months. 12/09/22--77-year-old female presents with recurrent urinary tract infection symptoms. Multiple coursed of abx treatments. was recently seen in the walkin clinic, she had Finished a course of ciprofloxacin that was prescribed on 11/08/2022, states that symptoms resolved but returned a day or 2 after completing the antibiotics. Was treated with cefuroxime 500 mg b.i.d. for 10 days, Retired Nurse disabled (corticocerebellar dystrophy left sided weakness, difficulty with speech, swallowing Recurrent UTI's reviewed urine c/s's Ecoli and Kleb h/o kidney stone 2004 UA nitrite positive, PVR 165 Plan - vagifem, CT KUB, fu cysto, consider abx suppressive therapy, hold on abx until urine c/s 01/12/2024--PLAN: Continue Vagifem. Flomax 0.4 mg daily Hiprex 1 g daily Continue cranberry supplements Follow-up in 3 months [facility] Medical History Cholelithiasis Liver mass Recurrent UTI (urinary tract infection) Impaired fasting glucose Hypertriglyceridemia Vaginal dryness, menopausal Obesity Right nephrolithiasis History of basal cell carcinoma Seasonal allergies Essential hypertension Osteoarthritis of left knee Surgical History History of appendectomy S/P correction of deviated nasal septum H/O dilation and curettage History of colonoscopy H/O lithotripsy History of arthroplasty of left knee Family History Father Essential hypertension CVA (cerebral vascular accident) CVD (cardiovascular disease) Mother Essential hypertension Bone cancer Social History [facility]: [facility] Alcohol intake: current Alcohol intake frequency: holidays/special occasions only Patient Tobacco Use Status: Former Tobacco user Tobacco use type: Cigarette Years Smoked: 5 yrs e-Cigarette/Vaping Use: Never Used Current occupational status: retired Cognitive needs: No Hearing needs: No Vision needs: Yes Review of Systems Const All systems reviewed & are unremarkable except as noted in HPI and below Reports no additional complaints Eyes Reports no additional complaints ENT Reports no additional complaints Card Reports no additional complaints Resp Reports no additional complaints GI Reports no additional complaints Reports as per HPI Musc Reports no additional complaints Skin/Breast Reports system reviewed and no additional complaints, except as documented Neuro Reports no additional complaints Psych Reports no additional complaints Endo Reports no additional complaints Jeremias/Lymph Reports no additional complaints Aller/Immun Reports no additional complaints Results AMB Urinalysis, Automated UA Leukoctes 70 Berta/uL Last Edit by PORTIA Vargas on 01/12/24 16:40 1+ Yaz Guzman 01/12/24 16:40 UA Nitrite Negative Last Edit by Yaz Guzman [facility] on 01/12/24 16:40 UA Urobilinogen 0 mg/dL Last Edit by Yaz Guzman [facility] on 01/12/24 16:40 UA Protein 0.2 mg/dL Last Edit by Yaz Guzman [facility] on 01/12/24 16:40 UA pH 6.5 Last Edit by Yaz Guzman [facility] on 01/12/24 16:40 UA Blood 0 Dagoberto/uL Last Edit by Yaz Guzman [facility] on 01/12/24 16:40 UA Specific [place] 1.015 Last Edit by Yaz Guzman [facility] on 01/12/24 16:40 UA Ketone Negative Last Edit by Yaz Guzman Connie on 01/12/24 16:40 UA Bilirubin 0 mg/dL Last Edit by Yaz Guzman [facility] on 01/12/24 16:40 UA Glucose 0 mg/dL Last Edit by Yaz Guzman [facility] on 01/12/24 16:40 Results Reviewed Results Reviewed: Laboratory Last Values Urine pH (Auto) 6.5 01/12/24 16:39 Specific [place] (Auto) 1.015 01/12/24 16:39 Urine Protein (Auto) 0.2 mg/dL 01/12/24 16:39 Glucose (UA)(Auto) 0 mg/dL 01/12/24 16:39 Urine Ketones (Auto) Negative 01/12/24 16:39 Urine Blood (Auto) 0 Dagoberto/uL 01/12/24 16:39 Urine Nitrite (Auto) Negative 01/12/24 16:39 Urine Bilirubin (Auto) 0 mg/dL 01/12/24 16:39 Urine Urobilinogen (Auto) 0 mg/dL 01/12/24 16:39 Leukocyte Esterase (Auto) 70 Berta/uL 01/12/24 16:39 Assessment & Plan Assessment & Plan (1) Recurrent UTI (urinary tract infection): Code(s): N39.0 - Urinary tract infection, site not specified (2) Vaginal atrophy: Code(s): N95.2 - Postmenopausal atrophic vaginitis (3) Incomplete bladder emptying: Code(s): R33.9 - Retention of urine, unspecified Plan Continue Vagifem. Flomax 0.4 mg daily Hiprex 1 g daily Continue cranberry supplements Follow-up in 3 months Orders: Orders Urine Cytology Today Z13.9 - Encounter for screening, unspecified Urine Culture Today N39.0 - Urinary tract infection, site not specified AMB Urinalysis Automated Today Z13.9 - Encounter for screening, unspecified Medications: New tamsulosin (Flomax) 0.4 mg PO BEDTIME 90 caps 1RF To increase urinary flow and bladder emptying methenamine hippurate (Hiprex) 1 g PO DAILY 90 tabs 1RF For recurrent UTIs Refilled estradiol (Vagifem) use vaginally Mon/Thurs 10 mcg vaginal 2XW 24 tabs 3RF Patient Instructions: The patient had an opportunity to ask questions regarding treatment plan. All questions were answered. Laboratory studies were discussed and reviewed in detail. No major barriers to understanding were identified. The patient expressed understanding and agreement with the above treatment plan. The patient is aware they should contact our office by phone for worsening of their current condition or the appearance of new symptoms. Compliance is encouraged with any medications and followup testing that is ordered. It is a privilege to be allowed the opportunity to participate in the urologic care of your patient. If you have any questions or concerns regarding treatment for the above conditions please do not hesitate to contact me. The office telephone contact is [phone]. This note is constructed in part using voice recognition software. While every effort has been made to ensure accuracy automobile upholsterer apprentice errors may have been included. Yours sincerely, Kaylie Rojas MD Coding Level of Care Code Est Pt Level 4 (91130) Diagnoses Recurrent UTI (urinary tract infection) N39.0 Vaginal atrophy N95.2 Incomplete bladder emptying R33.9
== END 2024-01-12 16:38 | disposition home or self-care (01) ==
PROVIDERS: PCP Internal Medicine; Visit Provider Urology
DX: N39.0 Urinary tract infection, site not specified (principal); N95.2 Postmenopausal atrophic vaginitis; R33.9 Retention of urine, unspecified; Z13.9 Encounter for screening, unspecified
CPT/HCPCS: 99214

== ENCOUNTER 2024-01-17 13:03 | Outpatient (REF) | payer MEDICARE, SELFPAY ==
[2024-01-17 16:31] LABS: Hematocrit 40.6 % (37.0-47.0); Hemoglobin 12.9 g/dl (12.0-16.0)
[2024-01-17 16:32] LABS: Anion Gap 10 (12-20); Blood Urea Nitrogen 19 mg/dL (9-16); Calcium 9.6 mg/dL (8.4-10.2); Carbon Dioxide 25 mmol/L (22-29); Chloride 110 mmol/L (96-108); Estimated Glomerular Filt Rate > 60; Potassium 3.7 mmol/L (3.3-5.1); Sodium 141 mmol/L (135-145)
[2024-01-17 16:46] LABS: Alanine Aminotransferase 13 U/L (0-31); Anion Gap 11 (12-20); Aspartate Amino Transferase 17 U/L (5-31); Blood Urea Nitrogen 19 mg/dL (9-16); Calcium 9.6 mg/dL (8.4-10.2); Carbon Dioxide 22 mmol/L (22-29); Chloride 111 mmol/L (96-108); Cholesterol 186 mg/dL (<200); Estimated Glomerular Filt Rate > 60; Glucose Fasting 107 mg/dL (60-99); HDL Cholesterol 44 mg/dL (>40); LDL Cholesterol Calculated 105 mg/dL (<100); Potassium 3.7 mmol/L (3.3-5.1); Sodium 140 mmol/L (135-145); Triglycerides 188 mg/dL (<150)
[2024-01-17 16:54] LABS: Creatinine Urine 71.72 mg/dL; Microalbum/Creatinine Ratio Ur 54.3 ug/mg cr (<30); Protein/Creatinine Ratio, Ur 0.13 (<0.2); Total Protein Urine Random 9 mg/dL (<12)
[2024-01-17 17:03] LABS: Vitamin D 25-OH Total 91.7 ng/mL (>30)
== END 2024-01-17 13:04 | disposition home or self-care (01) ==
LOC: HO.HMGCLDS 13:03
PROVIDERS: PCP Internal Medicine; Visit Provider Internal Medicine Nephrology
DX: K80.20 Calculus of gallbladder without cholecystitis without obstruction (principal); E78.1 Pure hyperglyceridemia; I10 Essential (primary) hypertension; R80.9 Proteinuria, unspecified
CPT/HCPCS: 36415; 80048; 80051; 80061; 82043; 82306; 82310; 82565; 82570; 84156; 84450; 84460; 84520; 85014; 85018

== ENCOUNTER 2024-02-28 13:03 | Outpatient (REF) | payer MEDICARE, SELFPAY ==
[2024-02-28 16:01] LABS: Appearance Urine Clear; Color Urine Yellow; Glucose Urine UA Negative (Negative); Leukocyte Esterase Urine Moderate (2+) (Negative); Nitrite Urine Negative (Negative); PH 5.5 (5.0-9.0); UMIC TRIGGER UA YES; Urine Blood Negative (Negative); Urine Ketones Negative (Negative); Urine Protein Negative (Neg-Trace)
[2024-02-28 16:06] LABS: Bacteria Urine 4+ (None Seen); RBC Urine 0-2 /HPF (0-2); WBC Urine 21-50 /HPF (0-5)
== END 2024-02-28 13:04 | disposition home or self-care (01) ==
LOC: HO.HMGCLDS 13:03
PROVIDERS: PCP Internal Medicine; Visit Provider Urology
DX: N39.0 Urinary tract infection, site not specified (principal); R33.9 Retention of urine, unspecified
CPT/HCPCS: 81001; 87086; 87088; 87186

== ENCOUNTER 2024-02-28 13:18 | Outpatient (AMB) | payer MEDICARE, SELFPAY ==
[2024-02-28 13:36] VITALS: BP 100/60; PULSE 53; O2SAT 95; BMI 30.2
--- NOTE | 2024-02-28 13:36 | A.OFFPC_ITS ---
Vital Signs 02/28/24 13:36 Height 5 ft 6 in Weight 187 lb BMI 30.2 BP 100/60 Blood Pressure Location Rt brachial Position Sitting Pulse 53 Pulse Source Pulse Oximeter Pulse Oximetry (%) 95 Oxygen Delivery Method Room Air Intake Visit Reasons: PE Intake Note: Pt is here today for her PE: last mammogram 12/09/23, bone density scan 12/22/21, colonoscopy 05/10/13 Allergies amoxicillin Allergy (Severe, Verified 02/28/24 13:53) rash Sulfa (Sulfonamide Antibiotics) Allergy (Intermediate, Verified 02/28/24 13:53) rash trimethoprim Adverse Reaction (Severe, Verified 02/28/24 13:53) Diarrhea Seasonal Allergies Adverse Reaction (Intermediate, Verified 02/28/24 13:53) Itchy Eyes Biaxin Allergy (Intermediate, Uncoded 02/28/24 13:53) rash nickel? Allergy (Intermediate, Uncoded 02/28/24 13:53) rash Medication List - Last Reconciled 02/28/24 by Neeta Pierce MD ascorbic acid (vitamin C) 500 mg PO DAILY cholecalciferol (vitamin D3) 25 mcg PO DAILY cranberry 500 mg PO .daily docusate sodium (Colace) 100 mg PO DAILY estradiol (Vagifem) 10 mcg vaginal 2XW furosemide 20 mg PO QAM glucosamine sulfate (Glucosamine) 500 mg PO DAILY loratadine (Claritin) 10 mg PO DAILY losartan 100 mg PO DAILY methenamine hippurate (Hiprex) 1 g PO DAILY metoprolol succinate ER 50 mg PO DAILY nifedipine ER (Procardia XL) 60 mg PO DAILY tamsulosin (Flomax) 0.4 mg PO BEDTIME zinc 50 mg PO DAILY Tobacco use date assessed: 02/28/24 Fall risk assessment: No Falls in past year Last assessed Fall Risk: 02/28/24 Dental Screening Dental Screen Date: 02/28/24 Did you have a dental visit in the last 12 months?: Yes Did you have a dental problem in the last 6 months where you did not have access to dental care?: Yes Was dental information given to patient?: Patient has dentist HPI PE HPI Details 78-year-old lady with history of recurre nt urinary tract infections, impaired fasting glucose, obesity, hypertension, seasonal allergies and osteoarthritis, here today for physical exam. She is up-to-date with her screening mammogram, last done 12/09/23 with benign findings, She had bone density scan 12/22/21 which showed beginning osteopenia in left femoral neck, normal in lumbar spine and left femur, and she had a screening colonoscopy 05/10/13, with normal results please. She is up-to-date with all her vaccinations [facility] Medical History (Updated 02/28/24 @ 14:19 by Neeta Pierce MD) Cholelithiasis Liver mass Recurrent UTI (urinary tract infection) Impaired fasting glucose Hypertriglyceridemia Vaginal dryness, menopausal Obesity Right nephrolithiasis History of basal cell carcinoma Seasonal allergies Essential hypertension Osteoarthritis of left knee Surgical History History of appendectomy S/P correction of deviated nasal septum H/O dilation and curettage History of colonoscopy H/O lithotripsy History of arthroplasty of left knee Family History Father Essential hypertension CVA (cerebral vascular accident) CVD (cardiovascular disease) Mother Essential hypertension Bone cancer Social History Housing: Condominium Alcohol intake: current Alcohol intake frequency: holidays/special occasions only Patient Tobacco Use Status: Former Tobacco user Tobacco use type: Cigarette Years Smoked: 5 yrs e-Cigarette/Vaping Use: Never Used Current occupational status: retired Cognitive needs: No Hearing needs: No Vision needs: Yes Questionnaire PHQ-9 Over the last 2 weeks, how often have you been bothered by any of the following problems? 1. Little interest or pleasure in doing things: not at all 2. Feeling down, depressed, or hopeless: not at all 3. Trouble falling or staying asleep, or sleeping too much: several days 4. Feeling tired or having little energy: several days 5. Poor appetite or overeating: not at all 6. Feeling bad about yourself - or that you are a failure or have let yourself or your family down: not at all 7. Trouble concentrating on things, such as reading the newspaper or watching television: not at all 8. Moving or speaking so slowly that other people could have noticed. Or the opposite - being so fidgety or restless that you have been moving around a lot more than usual: not at all 9. Thoughts that you would be better off or of hurting yourself in some way: not at all Total score: 2 Depression Screening Interpretation: Negative Depression Screening Done: Yes 59155 - PHQ-9 Billing: Yes Source: Developed by Drs. Jeb Hunter, Bebeto Quiñones and colleagues, with an educational amita from [employer]. Thrive Questionnaire Date Thrive assessed: 02/28/24 I am a: Patient What is your living situation today?: I have a steady place to live Within the past 12 months, did the food you bought not last and you didn't have the money to get more?: Never true Within the past 12 months, did you worry whether your food would run out before you got money to buy more?: Never true Do you have trouble paying for medicines?: No Do you have trouble getting transportation to medical appointments?: No Do you have trouble paying your heating and electricity bill?: No Do you have trouble taking care of your child, family member or friend?: No Do you have trouble with day-to-day activities such as bathing, preparing meals, shopping, managing finances, etc.?: No Are you currently unemployed and looking for a job?: No Are you interested in more education?: No THRIVE Score: 0 AUDIT C Alcohol Use Questionnaire (AUDIT-C) 1. How often do you have a drink containing alcohol?: Never Total Score: 0 BOOM-7 AMB Questionnaire BOOM-7 Date BOOM - 7 assessed: 02/28/24 Feeling nervous, anxious, or on edge: 1 = Several days Not being able to stop or control worryin = Not at all Worrying too much about different things: 1 = Several days Trouble relaxin = Not at all Being so restless that it is hard to sit still: 0 = Not at all Becoming easily annoyed or irritable: 0 = Not at all Feeling afraid as if something awful might happen: 0 = Not at all Total BOOM-7 score (0-4 normal; 5-9 mild; 10-14 moderate; 15-21 severe): 2 Source: Developed by Drs. Jeb Hunter, Bebeto Quiñones and colleagues, with an educational amita from [employer]. BOOM-7 Assessment Billing BOOM-7 Assessment Tool: BOOM-7 Assessment 40677 Physical exam (Primary Care) Vital Signs: Last Vital Signs Pulse 53 02/28/24 13:36 BP 100/60 02/28/24 13:36 Pulse Ox 95 02/28/24 13:36 Oxygen Delivery Method Room Air 02/28/24 13:36 BMI result Body Mass Index 30.2 Tobacco/Smoking Status: Tobacco use Status Tobacco use date assessed 02/28/24 02/28/24 13:41 Patient Tobacco Use Status Former Tobacco user 02/28/24 13:41 Tobacco use type Cigarette 02/28/24 13:41 e-Cigarette/Vaping Use Never Used 02/28/24 13:41 Depression Screening Interpretation: Negative Thrive Assessment: Date of Thrive Assessment Date Thrive assessed 01/19/23 02/28/24 13:41 Results Reviewed Results Reviewed: Laboratory Tests 01/17/24 13:15 Hgb 12.9 Hct 40.6 Name: Zoya Yoon Age/Sex: 78/F : 1945 Unit#: [id number] Attend Dr: Javi Wayne MD Re01/17/24 Status: DEP REF Location: [facility] zahira: SPEC : [id number] FUNMILAYO: 01/17/24-1314 STATUS: COMP REQ : [id number] RECD: 01/17/24-[address]: Neeta Pierce MD COMP: 01/17/24-1702 ENTERED: 01/17/24-[address]: Javi Wayne MD ORDERED: Met Prof Fast, AST, ALT, Lipid Panel, Vitamin D 25-OH Test Result Flag Reference Sodium 140 135-145 mmol/L Potassium 3.7 3.3-5.1 mmol/L CL 111 H 96-108 mmol/L CO2 22 22-29 mmol/L Gap 11 L 12-20 BUN 19 H 9-16 mg/dL Creat 0.73 0.5-1.4 mg/dL EGFR > 60 NOTE: For -Sw[place] individuals, multiply the result by 1.210. Chronic Kidney Disease: Estimated GFR < 60 mL/min/1.73m2 Severe Kidney Disease: Estimated GFR < 15 mL/min/1.73m2 FBS 107 H 60-99 mg/dL A fasting glucose from 100-125 mg/dl is considered impaired (pre-diabetes). CA 9.6 8.4-10.2 mg/dL AST (GOT) 17 5-31 U/L ALT (GPT) 13 0-31 U/L Triglyceride 188 H <150 mg/dL Desirable Triglyceride: less than 150 mg/dL Borderline High Triglyceride 150-199 mg/dL High Triglyceride: 200-499 mg/dL Very High Triglyceride: greater than or equal to 5OO mg/dL Cholesterol 186 <200 mg/dL Desirable Cholesterol: less than 200 mg/dL Borderline High Cholesterol: 200-239 mg/dL High Cholesterol: greater than 239 mg/dL LDL Calculated 105 H <100 mg/dL Desirable LDL: less than 100 mg/dL Near Optimal/Above Optimal LDL: 110-129 mg/dL Borderline High LDL: 130-159 mg/dL High LDL: 160-189 mg/dL Very High LDL: greater than or equal to 190 mg/dL HDL 44 >40 mg/dL Desirable HDL: greater than 40 mg/dL Note: This HDL assay may give artificially low results in patients with liver disease. Vit D 25-OH Tot 91.7 >30 ng/mL Health Based Reference Values* < 20 ng/mL Deficient 20-30 ng/mL Insufficient > 30 ng/mL Sufficient Assessment and Plan Assessment & Plan (1) Essential hypertension: Code(s): I10 - Essential (primary) hypertension (2) Seasonal allergies: Code(s): J30.2 - Other seasonal allergic rhinitis (3) Vaginal dryness, menopausal: Code(s): N95.1 - Menopausal and female climacteric states (4) Hypertriglyceridemia: Code(s): E78.1 - Pure hyperglyceridemia (5) Impaired fasting glucose: Code(s): R73.01 - Impaired fasting glucose (6) Recurrent UTI (urinary tract infection): Code(s): N39.0 - Urinary tract infection, site not specified (7) Osteoarthritis of left knee: Code(s): M17.12 - Unilateral primary osteoarthritis, left knee (8) Annual visit for general adult medical examination with abnormal findings: Code(s): Z00.01 - Encounter for general adult medical examination with abnormal findings Orders: Orders Vitamin D 25-OH Total 08/17/24 E66.9 - Obesity, unspecified, E78.1 - Pure hyperglyceridemia, I10 - Essential (primary) hypertension, M17.12 - Unilateral primary osteoarthritis, left knee, R73.01 - Impaired fasting glucose Basic Metabolic Panel Fasting 08/17/24 E66.9 - Obesity, unspecified, E78.1 - Pure hyperglyceridemia, I10 - Essential (primary) hypertension, M17.12 - Unila teral primary osteoarthritis, left knee, R73.01 - Impaired fasting glucose Lipid Panel 08/17/24 E66.9 - Obesity, unspecified, E78.1 - Pure hyperglyceridemia, I10 - Essential (primary) hypertension, M17.12 - Unilateral primary osteoarthritis, left knee, R73.01 - Impaired fasting glucose Alanine Aminotransferase 08/17/24 E66.9 - Obesity, unspecified, E78.1 - Pure hyperglyceridemia, I10 - Essential (primary) hypertension, M17.12 - Unilateral primary osteoarthritis, left knee, R73.01 - Impaired fasting glucose Aspartate Amino Transferase 08/17/24 E66.9 - Obesity, unspecified, E78.1 - Pure hyperglyceridemia, I10 - Essential (primary) hypertension, M17.12 - Unilateral primary osteoarthritis, left knee, R73.01 - Impaired fasting glucose Coding Diagnoses Essential hypertension I10 Seasonal allergies J30.2 Vaginal dryness, menopausal N95.1 Hypertriglyceridemia E78.1 Impaired fasting glucose R73.01 Recurrent UTI (urinary tract infection) N39.0 Osteoarthritis of left knee M17.12 Annual visit for general adult medical examination with abnormal findings Z00.01 Additional Codes BOOM-7 Assessment Billing - BOOM-7 Assessment Tool: BOOM-7 Assessment 18423 ([id number])
== END 2024-02-28 14:17 | disposition home or self-care (01) ==
PROVIDERS: PCP Internal Medicine; Visit Provider Internal Medicine
DX: Z00.01 Encounter for general adult medical examination with abnormal findings (principal); I10 Essential (primary) hypertension; J30.2 Other seasonal allergic rhinitis; N95.1 Menopausal and female climacteric states; E78.1 Pure hyperglyceridemia; R73.01 Impaired fasting glucose; N39.0 Urinary tract infection, site not specified; M17.12 Unilateral primary osteoarthritis, left knee
CPT/HCPCS: 99499

== ENCOUNTER 2024-03-28 14:21 | Outpatient (REF) | payer MEDICARE, SELFPAY | END 2024-03-28 14:22 | disposition home or self-care (01) | LOC: HO.LAB 14:21 | PROVIDERS: PCP Internal Medicine; Visit Provider Urology | DX: N39.0 Urinary tract infection, site not specified (principal); N95.2 Postmenopausal atrophic vaginitis; R33.9 Retention of urine, unspecified | CPT/HCPCS: 81003; 87086; 87147; 99212 ==

== ENCOUNTER 2024-03-28 14:21 | Outpatient (AMB) | payer MEDICARE, SELFPAY ==
--- NOTE | 2024-03-28 14:38 | A.OFFVIS_ITS ---
Intake Visit Reasons: 3m follow up Intake Note: Patient presents today for a 3 mon follow-up on UTI: Meds: Cranberry, Estradiol, Hiprex Allergies to Antibiotic: Trimethoprim, Sulfa & Amoxicillin. Director Ehs Required: No Accompanied by: Self / Same As Patient Allergies amoxicillin Allergy (Severe, Verified 03/28/24 14:40) rash Sulfa (Sulfonamide Antibiotics) Allergy (Intermediate, Verified 03/28/24 14:40) rash trimethoprim Adverse Reaction (Severe, Verified 03/28/24 14:40) Diarrhea Seasonal Allergies Adverse Reaction (Intermediate, Verified 03/28/24 14:40) Itchy Eyes Biaxin Allergy (Intermediate, Uncoded 03/28/24 14:40) rash nickel? Allergy (Intermediate, Uncoded 03/28/24 14:40) rash HPI Comments Details: 03/28/2024--Ashley is here in follow-up due to recurrent UTI. 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 She is allergic to multiple antibiotics, amoxicillin, sulfa, trimethoprim. h/o kidney stone 2004. Last urine culture 02/28/2024 resulted E coli, yung sensitive. She states she has a hemorrhoid and works hard at good hygiene. The patient has had studies including CT imaging, office cystoscopy, urine cytology. She describes UTI symptoms to include now orders urine increased urinary urgency and dysuria. I have discussed that several of her UTIs came back Klebsiella which likely indicates colonization the most recent UTI was E coli. I will increase the Hiprex to b.i.d.. The Flomax has not affected her urinary flow bladder scan PVR was 144 mL which is acceptable. Will discontinue Flomax. I have discussed in addition to cranberry supplement to trial D-mannose [id number]. Will refer to Infectious Disease for additional recommendations. Review chart: 01/12/2024--Ab is a 78-year-old female who has been followed due to recurrent UTIs. She was seen last in the office 06/09/2023 --cystoscopy findings at that time, revealed no suspicious bladder lesions. Since office visit she has called several times and left urine to be sent for culture. She had urine last checked for Microgen analysis and antibiotics were tailored based on results. Today she states she feels that the UTI has cleared up. She is complaining that she does have to push to empty and has a weak stream. Bladder scan PVR 175 mL. I have discussed a trial of alpha-munira Flomax. I will add Hiprex 1 g daily. She already takes vitamin-C 500 mg, cranberry supplements and Vagifem. 06/09/2023? Zoya is here for 3-month follow-up repeat cystoscopy procedure. She denies any signs of urinary tract infections. She was last seen by me on 03/09/2023 for recurrent urinary tract infection. Vagifem 10 mcg was reordered, and urine for bladder FISH discussed to be ordered. Results of urine FISH are not available in the chart. Plan was to repeat cystoscopy in 3 months. Evaluation today--UA-- Leukocytes: 70 berta/uL; blood: 0. Cystoscopy findings revealed within normal limits; no suspicious bladder lesions. 03/09/23-- The patient is here after 2 month follow-up and for cystoscopy procedure. The patient denies urianry tract symptoms. She is adhering to Vagifem therapy and requests for refill. States having diarrhea with the prophylactically prescribed trimethiprim 100mg and needed to stop. She is been evaluated by GI for the findings of liver and pancreatic changes in the most recent CAT scan. Evaluation today: Blood: negative, leukocytes: 3+. CAT scan results reviewed-- 01/05/23-- Kidneys: WNL, no renal calculi visualized. Cystoscopy findings--Small irregular area on the left side of the bladder neck area about 3 mm. Plan to repeat cystoscopy in 2-3 months. Review of imaging CT of the abdomen results from 02/23/2023 ADRENAL GLANDS AND KIDNEYS: Slight enlargement and nodularity of the left adrenal gland. The right adrenal gland is normal. No abnormalities reported in the kidneys. [facility] Medical History Cholelithiasis Liver mass Recurrent UTI (urinary tract infection) Impaired fasting glucose Hypertriglyceridemia Vaginal dryness, menopausal Obesity Right nephrolithiasis History of basal cell carcinoma Seasonal allergies Essential hypertension Osteoarthritis of left knee Surgical History History of appendectomy S/P correction of deviated nasal septum H/O dilation and curettage History of colonoscopy H/O lithotripsy History of arthroplasty of left knee Family History Father Essential hypertension CVA (cerebral vascular accident) CVD (cardiovascular disease) Mother Essential hypertension Bone cancer Social [facility] Alcohol intake: current Alcohol intake frequency: holidays/special occasions only Patient Tobacco Use Status: Former Tobacco user Tobacco use type: Cigarette Years Smoked: 5 yrs e-Cigarette/Vaping Use: Never Used Current occupational status: retired Cognitive needs: No Hearing needs: No Vision needs: Yes Review of Systems Const All systems reviewed & are unremarkable except as noted in HPI and below Reports no additional complaints Eyes Reports no additional complaints ENT Reports no additional complaints Card Reports no additional complaints Resp Reports no additional complaints GI Reports no additional complaints Reports as per HPI Musc Reports no additional complaints Skin/Breast Reports system reviewed and no additional complaints, except as documented Neuro Reports no additional complaints Psych Reports no additional complaints Endo Reports no additional complaints Jeremias/Lymph Reports no additional complaints Aller/Immun Reports no additional complaints Results AMB Urinalysis, Automated UA Leukoctes 500 Berta/uL Last Edit by PORTIA Vargas on 03/28/24 14:58 3+ Yaz Guzman 03/28/24 14:58 UA Nitrite Negative Last Edit by PORTIA Vargas on 03/28/24 14:58 UA Urobilinogen 0.2 mg/dL Last Edit by PORTIA Vargas on 03/28/24 14:5 8 UA Protein 30 mg/dL Last Edit by PORTIA Vargas on 03/28/24 14:58 1+ Yaz Guzman 03/28/24 14:58 UA pH 6.0 Last Edit by PORTIA Vargas on 03/28/24 14:58 UA Blood 10 Dagoberto/uL Last Edit by PORTIA Vargas on 03/28/24 14:58 UA Specific [place] 1.015 Last Edit by PORTIA Vargas on 03/28/24 14: 58 UA Ketone Negative Last Edit by JENNIFER VargasA on 03/28/24 14:58 UA Bilirubin 0 mg/dL Last Edit by JENNIFER VargasA on 03/28/24 14:58 UA Glucose 0 mg/dL Last Edit by JENNIFER VargasA on 03/28/24 14:58 Results Reviewed Results Reviewed: Laboratory Last Values Urine pH (Auto) 6.0 03/28/24 14:52 Specific [place] (Auto) 1.015 03/28/24 14:52 Urine Protein (Auto) 30 mg/dL 03/28/24 14:52 Glucose (UA)(Auto) 0 mg/dL 03/28/24 14:52 Urine Ketones (Auto) Negative 03/28/24 14:52 Urine Blood (Auto) 10 Dagoberto/uL 03/28/24 14:52 Urine Nitrite (Auto) Negative 03/28/24 14:52 Urine Bilirubin (Auto) 0 mg/dL 03/28/24 14:52 Urine Urobilinogen (Auto) 0.2 mg/dL 03/28/24 14:52 Leukocyte Esterase (Auto) 500 Berta/uL 03/28/24 14:52 Collected: 02/28/24 Status: COMP Req#: [id number] Received: 02/28/24 Source: [facility] Sp Desc: Clean Cat Subm Dr: Kaylie Rojas MD Ordered: Urine Culture Procedure Result Verified Urine Culture Final 03/01/24 Organism 1 Escherichia coli Quant > 100,000 cfu/mL E coli M.I.C. RX --------- --- Ampicillin 4 S Ceftriaxone <=0.25 S Gentamicin <=1 S Levofloxacin <=0.12 S Nitrofurantoin <=16 S Trimethoprim/Sulfamethoxazole <=20 S Collected: 01/12/24-1535 Status: COMP Req#: [id number] Received: 01/12/24 Source: [facility] Sp Desc: Urine balderrama Subm Dr: Kaylie Rojas MD Ordered: Urine Culture Procedure Result Verified Urine Culture Final 01/14/24 Organism 1 Klebsiella pneumoniae Quant > 100,000 cfu/mL Kleb pneum M.I.C. RX --------- --- Ampicillin >=32 R Ceftriaxone <=0.25 S Gentamicin <=1 S Levofloxacin 1 I Nitrofurantoin 64 I Trimethoprim/Sulfamethoxazole <=20 S Date of Service: 02/23/23 EXAMINATION: CT ABDOMEN WITHOUT AND WITH CONTRAST CLINICAL INFORMATION: Abnormal liver CT? COMPARISON: Previous CT of the abdomen and pelvis December 2022 FINDINGS: LUNG BASES: 3 mm peripheral or subpleural left lower lobe nodule.? LIVER, GALLBLADDER, AND BILIARY TREE: There is a large cyst seen in the central liver measuring 5.5 x 6.5 cm. This has small peripheral calcifications. Hounsfield units precontrast measure 18. Hounsfield units postcontrast measure between 21 and 22 with no appreciable enhancement. This is suggestive of a minimally complex cyst. There is a smaller subcentimeter approximately 4 mm lesion high in the dome of the liver axial image 10 series 4. This probably represents a small cyst as well. There is fatty infiltration of the liver. The liver is normal in contour. There is a gallstone in the gallbladder. There is no biliary duct dilatation.? 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 The pancreas is otherwise normal.? SPLEEN: Normal? ADRENAL GLANDS AND KIDNEYS: Slight enlargement and nodularity of the left adrenal gland. The right adrenal gland is normal. BOWEL LOOPS: Duodenal diverticulum as described above. Visualized bowel is otherwise unremarkable.? LYMPH NODES: Normal. VASCULAR: Dilated proximal celiac axis measuring 1.2 cm and moderate stenosis of the celiac axis origin. BONES: Degenerative changes of the spine and mild scoliosis.? IMPRESSION: 5.5 x 6.5 cm minimally complex cyst in the central liver. Probable smaller subcentimeter cyst high in the dome of the liver. Gallstone. 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 Assessment & Plan Assessment & Plan (1) Recurrent UTI (urinary tract infection): Code(s): N39.0 - Urinary tract infection, site not specified Category: Medical (2) Vaginal atrophy: Code(s): N95.2 - Postmenopausal atrophic vaginitis Category: Medical (3) Incomplete bladder emptying: Code(s): R33.9 - Retention of urine, unspecified Category: Medical Plan I will increase the Hiprex to b.i.d.. The Flomax has not affected her urinary flow; bladder scan PVR was 144 mL which is acceptable. Will discontinue Flomax. I have discussed in addition to cranberry supplement to trial D-mannose [id number]. Will refer to Infectious Disease for additional recommendations. Orders: Orders Urine Culture Today N39.0 - Urinary tract infection, site not specified AMB Urinalysis Automated Today Z13.9 - Encounter for screening, unspecified Referrals Infectious Disease Referral N39.0 - Urinary tract infection, site not specified Medications: Changed From methenamine hippurate (Hiprex) 1 g PO DAILY 90 tabs 1RF For recurrent UTIs To methenamine hippurate (Hiprex) 1 g PO BID 180 tabs 1RF For recurrent UTIs Discontinued tamsulosin (Flomax) Discontinued Reason: Doctor's Order 0.4 mg PO BEDTIME 90 caps 1RF To increase urinary flow and bladder emptying Patient Instructions: The patient had an opportunity to ask questions regarding treatment plan. The patient expressed understanding and agreement with the above treatment plan. The patient is aware they should contact our office by phone for worsening of their current condition or the appearance of new symptoms. Compliance is encouraged with any medications and followup testing that is ordered. It is a privilege to be allowed the opportunity to participate in the urologic care of your patient. If you have any questions or concerns regarding treatment for the above conditions please do not hesitate to contact me. The office telephone contact is [phone]. This note is constructed in part using voice recognition software. 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 Yours sincerely, Kaylie Rojas MD Coding Level of Care Code Est Pt Level 4 (52303) Complex EM visit Add On G2211 Diagnoses Recurrent UTI (urinary tract infection) N39.0 Vaginal atrophy N95.2 Incomplete bladder emptying R33.9
== END 2024-03-28 15:40 | disposition home or self-care (01) ==
PROVIDERS: PCP Internal Medicine; Visit Provider Urology
DX: N39.0 Urinary tract infection, site not specified (principal); N95.2 Postmenopausal atrophic vaginitis; R33.9 Retention of urine, unspecified; Z13.9 Encounter for screening, unspecified
CPT/HCPCS: 99214; G2211

== ENCOUNTER 2024-04-13 13:08 | Outpatient (AMB) | payer MEDICARE, SELFPAY ==
--- NOTE | 2024-04-13 13:08 | MHC.OFFVIS ---
Vital Signs 04/13/24 13:13 Height 5 ft 6 in Weight 188 lb BMI 30.3 Pulse 68 Pulse Source Pulse Oximeter Temp 98.5 F Temp Source Oral Pulse Oximetry (%) 98 Oxygen Delivery Method Room Air Intake Visit Reasons: reff uro sanders/uti Allergies amoxicillin Allergy (Severe, Verified 04/13/24 13:13) rash Sulfa (Sulfonamide Antibiotics) Allergy (Intermediate, Verified 04/13/24 13:13) rash trimethoprim Adverse Reaction (Severe, Verified 04/13/24 13:13) Diarrhea Seasonal Allergies Adverse Reaction (Intermediate, Verified 04/13/24 13:13) Itchy Eyes Biaxin Allergy (Intermediate, Uncoded 03/28/24 14:40) rash nickel? Allergy (Intermediate, Uncoded 03/28/24 14:40) rash HPI HPI reff uro sanders/uti: Details: She has intermittent episodes of lower pelvic discomfort and has had UTIs with Klebsiella and E coli as well. She is currently asymtomatic. [facility] Medical History Cholelithiasis Liver mass Recurrent UTI (urinary tract infection) Impaired fasting glucose Hypertriglyceridemia Vaginal dryness, menopausal Obesity Right nephrolithiasis History of basal cell carcinoma Seasonal allergies Essential hypertension Osteoarthritis of left knee Surgical History History of appendectomy S/P correction of deviated nasal septum H/O dilation and curettage History of colonoscopy H/O lithotripsy History of arthroplasty of left knee Family History Father Essential hypertension CVA (cerebral vascular accident) CVD (cardiovascular disease) Mother Essential hypertension Bone cancer Social History Housing: Condominium Alcohol intake: current Alcohol intake frequency: holidays/special occasions only Patient Tobacco Use Status: Former Tobacco user Tobacco use type: Cigarette Years Smoked: 5 yrs e-Cigarette/Vaping Use: Never Used Current occupational status: retired Cognitive needs: No Hearing needs: No Vision needs: Yes Review of Systems Const All systems reviewed & are unremarkable except as noted in HPI and below Physical Exam Vital Signs: Last Vital Signs Temp 98.5 F 04/13/24 13:13 Pulse 68 04/13/24 13:13 Pulse Ox 98 04/13/24 13:13 Oxygen Delivery Method Room Air 04/13/24 13:13 BMI result Body Mass Index 30.3 Const General: cooperative HEENT Head: Yes normal to inspection Face and sinus: Yes normal facial exam Mouth: Normal oral and palatal mucosa present Teeth and gingiva: dentition normal Eyes General: appearance normal, both eyes and all related structures Pupils: Equal, round and reactive pupils present Resp Effort & Inspection: normal respiratory effort Cardio Rate: regular rate Rhythm: regular rhythm GI Palpation (GI): Soft to palpation and nontender General: Yes no CVA tenderness Back/Spine/Pelvis Back: no CVA tenderness Skin General skin exam: no rashes or lesions noted Neuro General: moves all extremities Cranial nerves: Yes Equal, round and reactive pupils present Extrem General: Yes normal to inspection Psych Appearance: grossly normal Assessment & Plan Assessment & Plan (1) Incomplete bladder emptying: Comment: Different organisms in urine but still concern over colonization as well. Code(s): R33.9 - Retention of urine, unspecified Category: Medical Plan: Continue antibiotics symptomatically per episode. Can try po Doxycycline See as needed. (2) Recurrent UTI (urinary tract infection): Code(s): N39.0 - Urinary tract infection, site not specified Category: Medical Plan: na Medications: New doxycycline hyclate 100 mg PO BID 30 days 60 caps 5RF Coding Level of Care Code New Pt Level 3 (40895) Diagnoses Incomplete bladder emptying R33.9 Recurrent UTI (urinary tract infection) N39.0
[2024-04-13 13:13] VITALS: PULSE 68; TEMP 36.9; O2SAT 98; BMI 30.3
== END 2024-04-13 14:04 | disposition home or self-care (01) ==
LOC: HO.HID 13:08
PROVIDERS: PCP Internal Medicine; Visit Provider Internal Medicine
DX: R33.9 Retention of urine, unspecified (principal); N39.0 Urinary tract infection, site not specified
CPT/HCPCS: 99203

== ENCOUNTER → 2024-04-13 13:08 | Outpatient (BNVA) | payer MEDICARE, SELFPAY | PROVIDERS: PCP Internal Medicine; Visit Provider Internal Medicine | DX: R33.9 Retention of urine, unspecified (principal); N39.0 Urinary tract infection, site not specified | CPT/HCPCS: 99202 ==

== ENCOUNTER 2024-07-26 13:40 | Outpatient (AMB) | payer MEDICARE, SELFPAY ==
--- NOTE | 2024-07-26 13:46 | MHC.OFFVIS ---
Intake Visit Reasons: bladder prolapse concern Intake Note: Patient is present for bladder prolapse concern Urology Medication:vagifem Antibiotic Allergy:sulfa, amoxicillin Blood Thinner:none Software Quality Specialist Required: No Allergies amoxicillin Allergy (Severe, Verified 08/21/24 13:25) rash Sulfa (Sulfonamide Antibiotics) Allergy (Intermediate, Verified 08/21/24 13:25) rash trimethoprim Adverse Reaction (Severe, Verified 08/21/24 13:25) Diarrhea Seasonal Allergies Adverse Reaction (Intermediate, Verified 08/21/24 13:25) Itchy Eyes Biaxin Allergy (Intermediate, Uncoded 08/21/24 13:25) rash nickel? Allergy (Intermediate, Uncoded 08/21/24 13:25) rash HPI Comments Details: 07/26/24--Here for fu, states feels vaginal bulge. states she was lifting her (disabled). States her passed and was yesterday. Has difficulty with urine stream, currently on doxycycline prescribed by ID due to recurrent UTI's, also compliant on D Mannose. pelvic exam- cath for 150 mL, grade III cystocle, cervix in normal position. Size 3 open ring pessary inserted Review chart: 03/28/2024--Ashley is here in follow-up due to recurrent UTI. 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 She is allergic to multiple antibiotics, amoxicillin, sulfa, trimethoprim. h/o kidney stone 2004. Last urine culture 02/28/2024 resulted E coli, yung sensitive. She states she has a hemorrhoid and works hard at good hygiene. The patient has had studies including CT imaging, office cystoscopy, urine cytology. She describes UTI symptoms to include now orders urine increased urinary urgency and dysuria. I have discussed that several of her UTIs came back Klebsiella which likely indicates colonization the most recent UTI was E coli. I will increase the Hiprex to b.i.d.. The Flomax has not affected her urinary flow bladder scan PVR was 144 mL which is acceptable. Will discontinue Flomax. I have discussed in addition to cranberry supplement to trial D-mannose [id number]. Will refer to Infectious Disease for additional recommendations. 01/12/2024--Ab is a 78-year-old female who has been followed due to recurrent UTIs. She was seen last in the office 06/09/2023 --cystoscopy findings at that time, revealed no suspicious bladder lesions. Since office visit she has called several times and left urine to be sent for culture. She had urine last checked for Microgen analysis and antibiotics were tailored based on results. Today she states she feels that the UTI has cleared up. She is complaining that she does have to push to empty and has a weak stream. Bladder scan PVR 175 mL. I have discussed a trial of alpha-munira Flomax. I will add Hiprex 1 g daily. She already takes vitamin-C 500 mg, cranberry supplements and Vagifem. 06/09/2023? Zoya is here for 3-month follow-up repeat cystoscopy procedure. She denies any signs of urinary tract infections. She was last seen by me on 03/09/2023 for recurrent urinary tract infection. Vagifem 10 mcg was reordered, and urine for bladder FISH discussed to be ordered. Results of urine FISH are not available in the chart. Plan was to repeat cystoscopy in 3 months. Evaluation today--UA-- Leukocytes: 70 berta/uL; blood: 0. Cystoscopy findings revealed within normal limits; no suspicious bladder lesions. 03/09/23-- The patient is here after 2 month follow-up and for cystoscopy procedure. The patient denies urianry tract symptoms. She is adhering to Vagifem therapy and requests for refill. States having diarrhea with the prophylactically prescribed trimethiprim 100mg and needed to stop. She is been evaluated by GI for the findings of liver and pancreatic changes in the most recent CAT scan. Evaluation today: Blood: negative, leukocytes: 3+. CAT scan results reviewed-- 01/05/23-- Kidneys: WNL, no renal calculi visualized. Cystoscopy findings--Small irregular area on the left side of the bladder neck area about 3 mm. Plan to repeat cystoscopy in 2-3 months. Review of imaging CT of the abdomen results from 02/23/2023 ADRENAL GLANDS AND KIDNEYS: Slight enlargement and nodularity of the left adrenal gland. The right adrenal gland is normal. No abnormalities reported in the kidneys. [facility] Medical History Cholelithiasis Liver mass Recurrent UTI (urinary tract infection) Impaired fasting glucose Hypertriglyceridemia Vaginal dryness, menopausal Obesity Right nephrolithiasis History of basal cell carcinoma Seasonal allergies Essential hypertension Osteoarthritis of left knee Surgical History History of appendectomy S/P correction of deviated nasal septum H/O dilation and curettage History of colonoscopy H/O lithotripsy History of arthroplasty of left knee Family History Father Essential hypertension CVA (cerebral vascular accident) CVD (cardiovascular disease) Mother Essential hypertension Bone cancer Social History Housing: Condominium Alcohol intake: current Alcohol intake frequency: holidays/special occasions only Patient Tobacco Use Status: Former Tobacco user Tobacco use type: Cigarette Years Smoked: 5 yrs e-Cigarette/Vaping Use: Never Used Current occupational status: retired Cognitive needs: No Hearing needs: No Vision needs: Yes Review of Systems Const All systems reviewed & are unremarkable except as noted in HPI and below Reports no additional complaints Eyes Reports no additional complaints ENT Reports no additional complaints Card Reports no additional complaints Resp Reports no additional complaints GI Reports no additional complaints Reports as per HPI Musc Reports no additional complaints Skin/Breast Reports system reviewed and no additional complaints, except as documented Neuro Reports no additional complaints Psych Reports no additional complaints Endo Reports no additional complaints Jeremias/Lymph Reports no additional complaints Aller/Immun Reports no additional complaints Office Procedures Bladder/Catheter Procedure Details: Under sterile technique a 14 Kiswahili catheter was passed transurethrally, 150 mL urine drained [id number] Bladder Catheter Procedure code (CPT) selection complete Pessary Device Insert Details: [place] #3 open ring inserted- pt states when she tried to urinate she felt the pessary comming out [place] #4 ring with support placed [id number] device insert Results AMB Urinalysis, Automated UA Leukoctes 70 Berta/uL Last Edit by GARDENIA Pike on 07/26/24 14:31 UA Nitrite Negative Last Edit by GARDENIA Pike on 07/26/24 14:31 UA Urobilinogen 0.2 mg/dL Last Edit by GARDENIA Pike on 07/26/24 14:31 UA Protein 15 mg/dL Last Edit by GARDENIA Pike on 07/26/24 14:31 UA pH 5.5 Last Edit by GARDENIA Pike on 07/26/24 14:31 UA Blood 0 Dagoberto/uL Last Edit by GARDENIA Pike on 07/26/24 14:31 UA Specific [place] 1.020 Last Edit by GARDENIA Pike on 07/26/24 14:31 UA Ketone Negative Last Edit by GARDENIA Pike on 07/26/24 14:31 UA Bilirubin 0 mg/dL Last Edit by GARDENIA Pike on 07/26/24 14:31 UA Glucose 0 mg/dL Last Edit by GARDENIA Pike on 07/26/24 14:31 Results Reviewed Results Reviewed: Laboratory Last Values Urine pH (Auto) 5.5 07/26/24 14:30 Specific [place] (Auto) 1.020 07/26/24 14:30 Urine Protein (Auto) 15 mg/dL 07/26/24 14:30 Glucose (UA)(Auto) 0 mg/dL 07/26/24 14:30 Urine Ketones (Auto) Negative 07/26/24 14:30 Urine Blood (Auto) 0 Dagoberto/uL 07/26/24 14:30 Urine Nitrite (Auto) Negative 07/26/24 14:30 Urine Bilirubin (Auto) 0 mg/dL 07/26/24 14:30 Urine Urobilinogen (Auto) 0.2 mg/dL 07/26/24 14:30 Leukocyte Esterase (Auto) 70 Berta/uL 07/26/24 14:30 Assessment & Plan Assessment & Plan (1) Vaginal prolapse: Code(s): N81.10 - Cystocele, unspecified Category: Medical (2) Incomplete bladder emptying: Comment: Different organisms in urine but still concern over colonization as well. Code(s): R33.9 - Retention of urine, unspecified Category: Medical (3) Recurrent UTI (urinary tract infection): Code(s): N39.0 - Urinary tract infection, site not specified Category: Medical (4) Vaginal atrophy: Code(s): N95.2 - Postmenopausal atrophic vaginitis Category: Medical Plan pessary maintenance, Hiprex to b.i.d.. Cranberry supplement to trial D-mannose [id number]. Orders: Orders AMB Urinalysis Automated 07/26/24 Z13.9 - Encounter for screening, unspecified AMB Intravaginal Support Device Insertion 07/26/24 N81.10 - Cystocele, unspecified AMB Bladder/Catheter Procedure 07/26/24 R33.9 - Retention of urine, unspecified Patient Instructions: The patient had an opportunity to ask questions regarding treatment plan. The patient expressed understanding and agreement with the above treatment plan. The patient is aware they should contact our office by phone for worsening of their current condition or the appearance of new symptoms. Compliance is encouraged with any medications and followup testing that is ordered. It is a privilege to be allowed the opportunity to participate in the urologic care of your patient. If you have any questions or concerns regarding treatment for the above conditions please do not hesitate to contact me. The office telephone contact is [phone]. This note is constructed in part using voice recognition software. While every effort has been made to ensure accuracy retail client solutions analyst errors may have been included. Yours sincerely, Kaylie Rojas MD Coding Level of Care Code Est Pt Level 3 (16508) Diagnoses Vaginal prolapse N81.10 Incomplete bladder emptying R33.9 Recurrent UTI (urinary tract infection) N39.0 Vaginal atrophy N95.2 CPT Codes Bladder/Catheter Procedure - CPT: 82930-Awpswh Bladder Catheter ([id number]) Pessary Device Insert - CPT: 75572-Zssiffn device insert ([id number])
== END 2024-07-26 15:28 | disposition home or self-care (01) ==
PROVIDERS: PCP Internal Medicine; Visit Provider Urology
DX: N81.10 Cystocele, unspecified (principal); R33.9 Retention of urine, unspecified
CPT/HCPCS: 57160; 99213

== ENCOUNTER → 2024-07-26 13:40 | Outpatient (BNVA) | payer MEDICARE, SELFPAY | PROVIDERS: PCP Internal Medicine; Visit Provider Urology | DX: N81.10 Cystocele, unspecified (principal); R33.9 Retention of urine, unspecified; N39.0 Urinary tract infection, site not specified; N95.2 Postmenopausal atrophic vaginitis; Z79.2 Long term (current) use of antibiotics | CPT/HCPCS: 57160; 81003; 99212 ==

== ENCOUNTER 2024-08-21 13:20 | Outpatient (AMB) | payer MEDICARE, SELFPAY ==
--- NOTE | 2024-08-21 13:22 | MHC.OFFWIV ---
Intake Vital Signs 08/21/24 13:25 Height 5 ft 6 in Weight 182 lb 2 oz BMI 29.4 BP 122/80 Blood Pressure Location Rt brachial Position Sitting Pulse 88 Pulse Source Pulse Oximeter Temp 97.6 F Temp Source Oral Pulse Oximetry (%) 98 Oxygen Delivery Method Room Air Intake Visit Reasons: EP- Bad cough, stuffy, fourth week Intake Note: Patient here for cough, stuffy nose which has been present for about 4 weeks with no improvement. Patient Tobacco Use Status: Former Tobacco user Allergies amoxicillin Allergy (Severe, Verified 08/21/24 13:25) rash Sulfa (Sulfonamide Antibiotics) Allergy (Intermediate, Verified 08/21/24 13:25) rash trimethoprim Adverse Reaction (Severe, Verified 08/21/24 13:25) Diarrhea Seasonal Allergies Adverse Reaction (Intermediate, Verified 08/21/24 13:25) Itchy Eyes Biaxin Allergy (Intermediate, Uncoded 08/21/24 13:25) rash nickel? Allergy (Intermediate, Uncoded 08/21/24 13:25) rash Do you need a note to return to daycare/school/sports/work: No HPI HPI Comments History of Present Illness Details Patient is a 78yo F who presents to office with cough/cold symptoms Ongoing x 4 weeks Cough with phlegm; mostly clear/white Occasional chills, no fevers + congestion/runny nose without pressure + blocked ears + occasional SOB with exertion + fatigue She has tried netti pot, Robitusson, Tylenol, humidifier, antihistamine She got her flu vaccine/covid vaccine on Tuesday [facility] Medical History Cholelithiasis Liver mass Recurrent UTI (urinary tract infection) Impaired fasting glucose Hypertriglyceridemia Vaginal dryness, menopausal Obesity Right nephrolithiasis History of basal cell carcinoma Seasonal allergies Essential hypertension Osteoarthritis of left knee Surgical History History of appendectomy S/P correction of deviated nasal septum H/O dilation and curettage History of colonoscopy H/O lithotripsy History of arthroplasty of left knee Family History Father Essential hypertension CVA (cerebral vascular accident) CVD (cardiovascular disease) Mother Essential hypertension Bone cancer Social History Housing: Condominium Alcohol intake: current Alcohol intake frequency: holidays/special occasions only Patient Tobacco Use Status: Former Tobacco user Tobacco use type: Cigarette Years Smoked: 5 yrs e-Cigarette/Vaping Use: Never Used Current occupational status: retired Cognitive needs: No Hearing needs: No Vision needs: Yes Review of Systems Const Reports chills, Reports fatigue and Denies fever(s) Eyes Denies change in vision ENT Denies otalgia, Reports nasal congestion, Denies sinus pain and Denies sore throat Card Denies chest pain and Reports dyspnea on exertion Resp Reports chest congestion, Reports cough, Denies hemoptysis and Reports dyspnea on exertion Musc Denies myalgias Endo Reports fatigue Physical Exam Vital Signs: Last Vital Signs Temp 97.6 F 08/21/24 13:25 Pulse 88 08/21/24 13:25 BP 122/80 08/21/24 13:25 Pulse Ox 98 08/21/24 13:25 Oxygen Delivery Method Room Air 08/21/24 13:25 BMI result Body Mass Index 29.4 General: Non-toxic, NAD. Speaking full sentences. Skin: Warm dry throughout Eye: EOMI HENT: Airway patent. Uvula midline. No pharyngeal erythema or edema. No COST ESTIMATING MANAGER. Bilateral canals clear. TM non-erythematous, non-bulging. No TM perforation or hemotympanum noted. Respiratory: CTA bilaterally. No wheezes, rales or rhonchi Cardiac: RRR. No murmur Neurology: A/O. No aphasia or facial droop. Gait without abnormality Psych: Good mood and affect Assessment & Plan Assessment & Plan (1) Bronchitis: Code(s): J40 - Bronchitis, not specified as acute or chronic Plan: Patient seen and evaluated. Lungs without rales but concerning for 4 weeks of symptoms Will cover with azithromycin (pt on low dose doxy for UTI) Tessalon for cough ER s/s discussed with pt and she is aware Patient gave verbal understanding and had no additional questions or concerns at time of discharge All questions answered Medications: New azithromycin For 250 mg dose pack: take 500 mg today (day 1), then 250 mg for 4 days (days 2-5) PO 6 tabs 0RF benzonatate 200 mg PO BID PRN 14 caps 0RF cough Coding Level of Care Code Est Pt Level 3 (12201) Diagnoses Bronchitis J40
[2024-08-21 13:25] VITALS: BP 122/80; PULSE 88; TEMP 36.4; O2SAT 98; BMI 29.4
== END 2024-08-21 13:42 | disposition home or self-care (01) ==
PROVIDERS: PCP Internal Medicine; Visit Provider Physician Assistant
DX: J40 Bronchitis, not specified as acute or chronic (principal)

== ENCOUNTER → 2024-08-21 13:20 | Outpatient (BNVA) | payer MEDICARE, SELFPAY | PROVIDERS: PCP Internal Medicine; Visit Provider Physician Assistant | DX: J40 Bronchitis, not specified as acute or chronic (principal) | CPT/HCPCS: 99212 ==

== ENCOUNTER 2024-08-24 10:07 | Outpatient (AMB) | payer MEDICARE, SELFPAY ==
--- NOTE | 2024-08-24 10:22 | MHC.OFFVIS ---
Intake Visit Reasons: 4W pessary follow up Intake Note: Patient is present for 4W PESSARY F/U Urology Medication:ESTRADIOL,FUROSEMIDE Antibiotic Allergy:SULFA, AMOXICILLIN,BIAXIN Blood Thinner:NONE [employer] In[employer] Required: No Allergies amoxicillin Allergy (Severe, Verified 09/05/24 12:07) rash Sulfa (Sulfonamide Antibiotics) Allergy (Intermediate, Verified 09/05/24 12:07) rash trimethoprim Adverse Reaction (Severe, Verified 09/05/24 12:07) Diarrhea Seasonal Allergies Adverse Reaction (Intermediate, Verified 09/05/24 12:07) Itchy Eyes Biaxin Allergy (Intermediate, Uncoded 09/05/24 12:07) rash nickel? Allergy (Intermediate, Uncoded 09/05/24 12:07) rash HPI Comments Details: 08/24/24--follow-up pessary. The patient states that when she coughs or has a bowel movement the pessary moves out of position. I have discussed options of trying a different type of pessary versus surgical management. The patient is interested in surgical management for the vaginal prolapse. Urinalysis nitrite positive. The patient has been noted to have persistent bacteriuria. She was seen by infectious disease and placed on a 6 month course of doxycycline twice a day she has 30 days left to complete the course of therapy. She denies any UTI symptoms. Review chart: 07/26/24--Here for fu, states feels vaginal bulge. states she was lifting her (disabled). States her passed and was yesterday. Has difficulty with urine stream, currently on doxycycline prescribed by ID due to recurrent UTI's, also compliant on D Mannose. pelvic exam- cath for 150 mL, grade III cystocle, cervix in normal position. Size 3 open ring pessary inserted 03/28/2024--Pat is here in follow-up due to recurrent UTI. 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 She is allergic to multiple antibiotics, amoxicillin, sulfa, trimethoprim. h/o kidney stone 2004. Last urine culture 02/28/2024 resulted E coli, yung sensitive. She states she has a hemorrhoid and works hard at good hygiene. The patient has had studies including CT imaging, office cystoscopy, urine cytology. She describes UTI symptoms to include now orders urine increased urinary urgency and dysuria. I have discussed that several of her UTIs came back Klebsiella which likely indicates colonization the most recent UTI was E coli. I will increase the Hiprex to b.i.d.. The Flomax has not affected her urinary flow bladder scan PVR was 144 mL which is acceptable. Will discontinue Flomax. I have discussed in addition to cranberry supplement to trial D-mannose [id number]. Will refer to Infectious Disease for additional recommendations. 01/12/2024--Ab is a 78-year-old female who has been followed due to recurrent UTIs. She was seen last in the office 06/09/2023 --cystoscopy findings at that time, revealed no suspicious bladder lesions. Since office visit she has called several times and left urine to be sent for culture. She had urine last checked for Microgen analysis and antibiotics were tailored based on results. Today she states she feels that the UTI has cleared up. She is complaining that she does have to push to empty and has a weak stream. Bladder scan PVR 175 mL. I have discussed a trial of alpha-munira Flomax. I will add Hiprex 1 g daily. She already takes vitamin-C 500 mg, cranberry supplements and Vagifem. 06/09/2023?Zoya is here for 3-month follow-up repeat cystoscopy procedure. She denies any signs of urinary tract infections. She was last seen by me on 03/09/2023 for recurrent urinary tract infection. Vagifem 10 mcg was reordered, and urine for bladder FISH discussed to be ordered. Results of urine FISH are not available in the chart. Plan was to repeat cystoscopy in 3 months. Evaluation today--UA-- Leukocytes: 70 berta/uL; blood: 0. Cystoscopy findings revealed within normal limits; no suspicious bladder lesions. 03/09/23-- The patient is here after 2 month follow-up and for cystoscopy procedure. The patient denies urianry tract symptoms. She is adhering to Vagifem therapy and requests for refill. States having diarrhea with the prophylactically prescribed trimethiprim 100mg and needed to stop. She is been evaluated by GI for the findings of liver and pancreatic changes in the most recent CAT scan. Evaluation today: Blood: negative, leukocytes: 3+. CAT scan results reviewed-- 01/05/23-- Kidneys: WNL, no renal calculi visualized. Cystoscopy findings--Small irregular area on the left side of the bladder neck area about 3 mm. Plan to repeat cystoscopy in 2-3 months. Review of imaging CT of the abdomen results from 02/23/2023 ADRENAL GLANDS AND KIDNEYS: Slight enlargement and nodularity of the left adrenal gland. The right adrenal gland is normal. No abnormalities reported in the kidneys. PFSH Medical History Cholelithiasis Liver mass Recurrent UTI (urinary tract infection) Impaired fasting glucose Hypertriglyceridemia Vaginal dryness, menopausal Obesity Right nephrolithiasis History of basal cell carcinoma Seasonal allergies Essential hypertension Osteoarthritis of left knee Surgical History History of appendectomy S/P correction of deviated nasal septum H/O dilation and curettage History of colonoscopy H/O lithotripsy History of arthroplasty of left knee Family History Father Essential hypertension CVA (cerebral vascular accident) CVD (cardiovascular disease) Mother Essential hypertension Bone cancer Social History Housing: Condominium Alcohol intake: current Alcohol intake frequency: holidays/special occasions only Patient Tobacco Use Status: Former Tobacco user Tobacco use type: Cigarette Years Smoked: 5 yrs e-Cigarette/Vaping Use: Never Used Current occupational status: retired Cognitive needs: No Hearing needs: No Vision needs: Yes Review of Systems Const All systems reviewed & are unremarkable except as noted in HPI and below Reports no additional complaints Eyes Reports no additional complaints ENT Reports no additional complaints Card Reports no additional complaints Resp Reports no additional complaints GI Reports no additional complaints Reports as per HPI Musc Reports no additional complaints Skin/Breast Reports system reviewed and no additional complaints, except as documented Neuro Reports no additional complaints Psych Reports no additional complaints Endo Reports no additional complaints Jeremias/Lymph Reports no additional complaints Aller/Immun Reports no additional complaints Results AMB Urinalysis, Automated UA Leukoctes 500 Berta/uL Last Edit by GARDENIA Pike on 08/24/24 13:05 UA Nitrite Positive Last Edit by GAREDNIA Pike on 08/24/24 13:05 UA Urobilinogen 0.2 mg/dL Last Edit by Natasha Cornell [facility] on 08/24/24 13:05 UA Protein 15 mg/dL Last Edit by Natasha Cornell [facility] on 08/24/24 13:05 UA pH 6.0 Last Edit by Natasha Cornell [facility] on 08/24/24 13:05 UA Blood 0 Dagoberto/uL Last Edit by Natasha Cornell [facility] on 08/24/24 13:05 UA Specific [place] 1.020 Last Edit by Natasha Cornell [facility] on 08/24/24 13:05 UA Ketone Negative Last Edit by Natasha Cornell [facility] on 08/24/24 13:05 UA Bilirubin 0 mg/dL Last Edit by Natasha Cornell [facility] on 08/24/24 13:05 UA Glucose 0 mg/dL Last Edit by Natasha Cornell [facility] on 08/24/24 13:05 Results Reviewed Results Reviewed: Laboratory Last Values Urine pH (Auto) 6.0 08/24/24 13:04 Specific [place] (Auto) 1.020 08/24/24 13:04 Urine Protein (Auto) 15 mg/dL 08/24/24 13:04 Glucose (UA)(Auto) 0 mg/dL 08/24/24 13:04 Urine Ketones (Auto) Negative 08/24/24 13:04 Urine Blood (Auto) 0 Dagoberto/uL 08/24/24 13:04 Urine Nitrite (Auto) Positive 08/24/24 13:04 Urine Bilirubin (Auto) 0 mg/dL 08/24/24 13:04 Urine Urobilinogen (Auto) 0.2 mg/dL 08/24/24 13:04 Leukocyte Esterase (Auto) 500 Berta/uL 08/24/24 13:04 Collected: 02/28/24-131 Status: COMP Req#: [id number] Received: 02/28/24-2238 Source: [facility] Sp Desc: Clean Cat Subm Dr: Kaylie Rojas MD Ordered: Urine Culture Procedure Result Verified Urine Culture Final 03/01/24 Organism 1 Escherichia coli Quant > 100,000 cfu/mL E coli M.I.C. RX --------- --- Ampicillin 4 S Ceftriaxone <=0.25 S Gentamicin <=1 S Levofloxacin <=0.12 S Nitrofurantoin <=16 S Trimethoprim/Sulfamethoxazole <=20 S Collected: 01/12/24 Status: JUSTIN Sainz#: [id number] Received: 01/12/24 Source: [facility] Desc: Urine balderrama Subm Dr: Kaylie Rojas MD Ordered: Urine Culture Procedure Result Verified Urine Culture Final 01/14/24 Organism 1 Klebsiella pneumoniae Quant > 100,000 cfu/mL Kleb pneum M.I.C. RX --------- --- Ampicillin >=32 R Ceftriaxone <=0.25 S Gentamicin <=1 S Levofloxacin 1 I Nitrofurantoin 64 I Trimethoprim/Sulfamethoxazole <=20 S Date of Service: 02/23/23 EXAMINATION: CT ABDOMEN WITHOUT AND WITH CONTRAST CLINICAL INFORMATION: Abnormal liver CT? COMPARISON: Previous CT of the abdomen and pelvis December 2022 FINDINGS: LUNG BASES: 3 mm peripheral or subpleural left lower lobe nodule.? LIVER, GALLBLADDER, AND BILIARY TREE: There is a large cyst seen in the central liver measuring 5.5 x 6.5 cm. This has small peripheral calcifications. Hounsfield units precontrast measure 18. Hounsfield units postcontrast measure between 21 and 22 with no appreciable enhancement. This is suggestive of a minimally complex cyst. There is a smaller subcentimeter approximately 4 mm lesion high in the dome of the liver axial image 10 series 4. This probably represents a small cyst as well. There is fatty infiltration of the liver. The liver is normal in contour. There is a gallstone in the gallbladder. There is no biliary duct dilatation.? 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 The pancreas is otherwise normal.? SPLEEN: Normal? ADRENAL GLANDS AND KIDNEYS: Slight enlargement and nodularity of the left adrenal gland. The right adrenal gland is normal. BOWEL LOOPS: Duodenal diverticulum as described above. Visualized bowel is otherwise unremarkable.? LYMPH NODES: Normal. VASCULAR: Dilated proximal celiac axis measuring 1.2 cm and moderate stenosis of the celiac axis origin. BONES: Degenerative changes of the spine and mild scoliosis.? IMPRESSION: 5.5 x 6.5 cm minimally complex cyst in the central liver. Probable smaller subcentimeter cyst high in the dome of the liver. Gallstone. 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 Assessment & Plan Assessment & Plan (1) Vaginal prolapse: Code(s): N81.10 - Cystocele, unspecified Category: Medical (2) Incomplete bladder emptying: Comment: Different organisms in urine but still concern over colonization as well. Code(s): R33.9 - Retention of urine, unspecified Category: Medical (3) Recurrent UTI (urinary tract infection): Code(s): N39.0 - Urinary tract infection, site not specified Category: Medical (4) Vaginal atrophy: Code(s): N95.2 - Postmenopausal atrophic vaginitis Category: Medical Plan refer to Urogyn Orders: Orders AMB Urinalysis Automated 08/24/24 Z13.9 - Encounter for screening, unspecified Urine Culture 08/28/24 N39.0 - Urinary tract infection, site not specified Referrals Urogynecology Referral N81.10 - Cystocele, unspecified Patient Instructions: The patient had an opportunity to ask questions regarding treatment plan. The patient expressed understanding and agreement with the above treatment plan. The patient is aware they should contact our office by phone for worsening of their current condition or the appearance of new symptoms. Compliance is encouraged with any medications and followup testing that is ordered. It is a privilege to be allowed the opportunity to participate in the urologic care of your patient. If you have any questions or concerns regarding treatment for the above conditions please do not hesitate to contact me. The office telephone contact is [phone]. This note is constructed in part using voice recognition software. While every effort has been made to ensure accuracy svp programmatic tv errors may have been included. Yours sincerely, Kaylie Rojas MD Coding Level of Care Code Est Pt Level 4 (05585) Diagnoses Vaginal prolapse N81.10 Incomplete bladder emptying R33.9 Recurrent UTI (urinary tract infection) N39.0 Vaginal atrophy N95.2
== END 2024-08-24 11:56 | disposition home or self-care (01) ==
PROVIDERS: PCP Internal Medicine; Visit Provider Urology
DX: N81.10 Cystocele, unspecified (principal); R33.9 Retention of urine, unspecified; N39.0 Urinary tract infection, site not specified; N95.2 Postmenopausal atrophic vaginitis
CPT/HCPCS: 99214

== ENCOUNTER 2024-08-24 10:07 | Outpatient (REF) | payer MEDICARE, SELFPAY | END 2024-08-24 10:08 | disposition home or self-care (01) | LOC: HO.LAB 10:07 | PROVIDERS: PCP Internal Medicine; Visit Provider Urology | DX: N39.0 Urinary tract infection, site not specified (principal); N81.10 Cystocele, unspecified; R33.9 Retention of urine, unspecified; N95.2 Postmenopausal atrophic vaginitis | CPT/HCPCS: 81003; 99212 ==

== ENCOUNTER 2024-08-28 10:30 | Outpatient (REF) | payer MEDICARE, SELFPAY ==
[2024-08-28 13:32] LABS: Appearance Urine Cloudy; Color Urine Yellow; Glucose Urine UA Negative (Negative); Leukocyte Esterase Urine Moderate (2+) (Negative); Nitrite Urine Positive (Negative); PH 5.5 (5.0-9.0); UMIC TRIGGER UA YES; Urine Blood Trace (Negative); Urine Ketones Negative (Negative); Urine Protein Trace mg/dL (Neg-Trace)
[2024-08-28 13:37] LABS: Bacteria Urine 4+ (None Seen); Hyaline Casts Urine 0-2 /LPF (0-2); RBC Urine 0-2 /HPF (0-2); Squamous Epithelial Cell Urine 0-2 /HPF (0-2); WBC Urine >50 /HPF (0-5)
[2024-08-28 14:17] LABS: Alanine Aminotransferase 23 U/L (0-31); Anion Gap 13 (12-20); Aspartate Amino Transferase 30 U/L (5-31); Blood Urea Nitrogen 21 mg/dL (9-16); Calcium 9.5 mg/dL (8.4-10.2); Carbon Dioxide 23 mmol/L (22-29); Chloride 108 mmol/L (96-108); Cholesterol 176 mg/dL (<200); Estimated Glomerular Filt Rate > 60; Glucose Fasting 97 mg/dL (60-99); HDL Cholesterol 43 mg/dL (>40); LDL Cholesterol Calculated 95 mg/dL (<100); Potassium 3.7 mmol/L (3.3-5.1); Sodium 140 mmol/L (135-145); Triglycerides 192 mg/dL (<150)
[2024-08-28 14:36] LABS: Vitamin D 25-OH Total 88.3 ng/mL (>30)
== END 2024-08-28 10:31 | disposition home or self-care (01) ==
LOC: HO.HMGCLDS 10:30
PROVIDERS: PCP Internal Medicine; Referring Provider Urology; Visit Provider Internal Medicine
DX: I10 Essential (primary) hypertension (principal); N39.0 Urinary tract infection, site not specified; M17.12 Unilateral primary osteoarthritis, left knee; E66.9 Obesity, unspecified; E78.1 Pure hyperglyceridemia; R73.01 Impaired fasting glucose
CPT/HCPCS: 36415; 80048; 80061; 81001; 82306; 84450; 84460; 87086; 87088; 87186

== ENCOUNTER 2024-09-05 11:01 | Outpatient (AMB) | payer MEDICARE, SELFPAY ==
[2024-09-05 11:16] VITALS: BP 102/62; PULSE 75; O2SAT 99; BMI 29.0
--- NOTE | 2024-09-05 11:16 | A.OFFPC_ITS ---
Vital Signs 09/05/24 11:16 Height 5 ft 6 in Weight 180 lb BMI 29.0 BP 102/62 Blood Pressure Location Lt brachial Position Sitting Pulse 75 Pulse Source Pulse Oximeter Pulse Oximetry (%) 99 Oxygen Delivery Method Room Air Intake Visit Reasons: f/u labs Intake Note: Pt is here today for her lab Allergies amoxicillin Allergy (Severe, Verified 09/05/24 12:07) rash Sulfa (Sulfonamide Antibiotics) Allergy (Intermediate, Verified 09/05/24 12:07) rash trimethoprim Adverse Reaction (Severe, Verified 09/05/24 12:07) Diarrhea Seasonal Allergies Adverse Reaction (Intermediate, Verified 09/05/24 12:07) Itchy Eyes Biaxin Allergy (Intermediate, Uncoded 09/05/24 12:07) rash nickel? Allergy (Intermediate, Uncoded 09/05/24 12:07) rash Medication List - Last Reconciled 09/05/24 by Neeta Pierce MD ascorbic acid (vitamin C) 500 mg PO DAILY azithromycin For 250 mg dose pack: take 500 mg today (day 1), then 250 mg for 4 days (days 2-5) PO benzonatate 200 mg PO BID PRN cholecalciferol (vitamin D3) 25 mcg PO DAILY cranberry 500 mg PO .daily docusate sodium (Colace) 100 mg PO DAILY doxycycline hyclate 100 mg PO BID 30 days estradiol (Vagifem) 10 mcg vaginal 2XW furosemide (Lasix) 20 mg PO DAILY glucosamine sulfate (Glucosamine) 500 mg PO DAILY loratadine (Claritin) 10 mg PO DAILY losartan 100 mg PO DAILY metoprolol succinate ER 50 mg PO DAILY nifedipine ER (Procardia XL) 60 mg PO DAILY nitrofurantoin monohyd/m-cryst 100 mg (Macrobid) 100 mg PO BID 7 days zinc 50 mg PO DAILY Tobacco use date assessed: 09/05/24 Fall risk assessment: No Falls in past year Last assessed Fall Risk: 09/05/24 Dental Screening Dental Screen Date: 09/05/24 Did you have a dental visit in the last 12 months?: Yes Did you have a dental problem in the last 6 months where you did not have access to dental care?: No Was dental information given to patient?: Patient has dentist HPI f/u labs HPI Details The patient is a 78-year-old female presenting with chronic sinusitis. She reports a long-standing history of recurrent sinus infections, with previous exacerbations treated with various antibiotics, including recent use of doxycycline. Despite treatment, she continues to experience symptoms suggestive of sinus inflammation rather than an active infection. The patient notes that previous steroid nasal sprays did not improve her condition significantly. Her ongoing treatment includes a maintenance dose of doxycycline, which has been used to prevent urinary tract infections. The underlying issue of pelvic organ prolapse, exacerbated by chronic coughing, complicates the UTI management. It also has contributed to her gastrointestinal symptoms, causing constipation, despite regular fiber intake. The patient is also dealing with significant recent personal loss, -lost her July 16, with spouse having corticobasal degeneration. Reports consumption of a tea and toast diet, preferring white bread; acknowledges poor diet management since spousal loss, impacting her nutritional habits, which may have influenced an increase in triglyceride level. Has strong family support system [facility] Medical History Cholelithiasis Liver mass Recurrent UTI (urinary tract infection) Impaired fasting glucose Hypertriglyceridemia Vaginal dryness, menopausal Obesity Right nephrolithiasis History of basal cell carcinoma Seasonal allergies Essential hypertension Osteoarthritis of left knee Surgical History History of appendectomy S/P correction of deviated nasal septum H/O dilation and curettage History of colonoscopy H/O lithotripsy History of arthroplasty of left knee Family History Father Essential hypertension CVA (cerebral vascular accident) CVD (cardiovascular disease) Mother Essential hypertension Bone cancer Social History Housing: Condominium Alcohol intake: current Alcohol intake frequency: holidays/special occasions only Patient Tobacco Use Status: Former Tobacco user Tobacco use type: Cigarette Years Smoked: 5 yrs e-Cigarette/Vaping Use: Never Used Current occupational status: retired Cognitive needs: No Hearing needs: No Vision needs: Yes Questionnaire PHQ-9 Over the last 2 weeks, how often have you been bothered by any of the following problems? Depression Screening Interpretation: Negative Depression Screening Done: Yes Source: Developed by Drs. Jeb Hunter, Radha Snell, Bebeto Smith and colleagues, with an educational amita from [employer]. Thrive Questionnaire Date Thrive assessed: 08/29/24 I am a: Patient What is your living situation today?: I have a steady place to live Within the past 12 months, did the food you bought not last and you didn't have the money to get more?: Never true Within the past 12 months, did you worry whether your food would run out before you got money to buy more?: Never true Do you have trouble paying for medicines?: No Do you have trouble getting transportation to medical appointments?: No Do you have trouble paying your heating and electricity bill?: No Do you have trouble taking care of your child, family member or friend?: I choose not to answer this question Do you have trouble with day-to-day activities such as bathing, preparing meals, shopping, managing finances, etc.?: No Are you currently unemployed and looking for a job?: No Are you interested in more education?: No Please select the resources that you would like help with: None Currently or been in a relationship where the following occur: No concerns reported THRIVE Score: 0 BOOM-7 AMB Questionnaire BOOM-7 Date BOOM - 7 assessed: 02/28/24 Source: Developed by Drs. Jeb Hunter, Radha Snell, Bebeto Smith and colleagues, with an educational amita from [employer]. Review of Systems Const All systems reviewed & are unremarkable except as noted in HPI and below Reports no additional complaints Eyes Reports blurry vision ENT Reports no additional complaints Card Reports no additional complaints Resp Reports no additional complaints GI Reports no additional complaints Reports as per HPI Musc Reports no additional complaints Neuro Reports no additional complaints Psych Reports no additional complaints Endo Reports no additional complaints Jeremias/Lymph Reports no additional complaints Aller/Immun Reports no additional complaints Physical exam (Primary Care) Vital Signs: Last Vital Signs Pulse 75 09/05/24 11:16 BP 102/62 09/05/24 11:16 Pulse Ox 99 09/05/24 11:16 Oxygen Delivery Method Room Air 09/05/24 11:16 BMI result Body Mass Index 29.0 Tobacco/Smoking Status: Tobacco use Status Tobacco use date assessed 09/05/24 09/05/24 11:42 Patient Tobacco Use Status Former Tobacco user 09/05/24 11:17 Tobacco use type Cigarette 09/05/24 11:17 e-Cigarette/Vaping Use Never Used 09/05/24 11:17 Depression Screening Interpretation: Negative Thrive Assessment: Date of Thrive Assessment Date Thrive assessed 08/29/24 09/05/24 11:17 Currently or been in a relationship where the following occur: No concerns reported Const General: comfortable, no acute distress and alert Orientation/consciousness: oriented to time and patient oriented x3 HENMT Mouth: Normal oral and palatal mucosa present Eyes General: appearance normal, both eyes and all related structures Neck Neck: Yes full ROM, Yes no lymphadenopathy and Yes supple Resp Auscultation: clear to auscultation bilaterally Cardio Rate: regular rate Rhythm: regular rhythm Heart sounds: S1 normal heart sound present and S2 normal heart sound present GI Palpation (GI): Soft to palpation, nontender and no guarding Auscultation: normal bowel sounds Skin General skin exam: no rashes or lesions noted Neuro General: oriented to time, patient oriented x3, gait normal, moves all extremities and no focal motor deficits Extrem General: Yes full ROM, Yes no joint enlargement, Yes no pedal edema, Yes no calf tenderness and Yes normal gait Psych Appearance: grossly normal and well kempt Mental Status: mental status grossly normal Speech and movement: Normal speech and movement present Affect: normal affect Attitude: cooperative Results Reviewed Results Reviewed: Name: Zoya Yoon Age/Sex: 78/F : 1945 Unit#: [id number] Attend Dr: Neeta Pierce MD Re08/28/24 Status: DEP REF Location: [facility] Disch: SPEC : [id number] FUNMILAYO: 08/28/24 STATUS: COMP REQ : [id number] RECD: 08/28/[address]: Neeta Pierce MD COMP: 08/28/24 ENTERED: 08/28/[address]: ORDERED: Met Prof Fast, AST, ALT, Lipid Panel, Vitamin D 25-OH Test Result Flag Reference Sodium 140 135-145 mmol/L Potassium 3.7 3.3-5.1 mmol/L CL 108 96-108 mmol/L CO2 23 22-29 mmol/L Gap 13 12-20 BUN 21 H 9-16 mg/dL Creat 0.80 0.5-1.4 mg/dL eGFR > 60 Chronic Kidney Disease: Estimated GFR < 60 mL/min/1.73m2 Severe Kidney Disease: Estimated GFR < 15 mL/min/1.73m2 FBS 97 60-99 mg/dL CA 9.5 8.4-10.2 mg/dL AST (GOT) 30 5-31 U/L ALT (GPT) 23 0-31 U/L Triglyceride 192 H <150 mg/dL Desirable Triglyceride: less than 150 mg/dL Borderline High Triglyceride 150-199 mg/dL High Triglyceride: 200-499 mg/dL Very High Triglyceride: greater than or equal to 5OO mg/dL Cholesterol 176 <200 mg/dL Desirable Cholesterol: less than 200 mg/dL Borderline High Cholesterol: 200-239 mg/dL High Cholesterol: greater than 239 mg/dL LDL Calculated 95 <100 mg/dL Desirable LDL: less than 100 mg/dL Near Optimal/Above Optimal LDL: 110-129 mg/dL Borderline High LDL: 130-159 mg/dL High LDL: 160-189 mg/dL Very High LDL: greater than or equal to 190 mg/dL HDL 43 >40 mg/dL Desirable HDL: greater than 40 mg/dL Note: This HDL assay may give artificially low results in patients with liver disease. Vit D 25-OH Tot 88.3 >30 ng/mL Health Based Reference Values* < 20 ng/mL Deficient 20-30 ng/mL Insufficient > 30 ng/mL Sufficient Coding Level of Care Code Est Pt Level 4 (79585) Complex EM visit Add On G2211 Diagnoses Essential hypertension I10 Hypertriglyceridemia E78.1 Impaired fasting glucose R73.01 Recurrent UTI (urinary tract infection) N39.0 Vaginal prolapse N81.10 Congestion of nasal sinus R09.81 Assessment & Plan Assessment & Plan (1) Essential hypertension: Code(s): I10 - Essential (primary) hypertension Category: Medical (2) Hypertriglyceridemia: Code(s): E78.1 - Pure hyperglyceridemia Category: Medical (3) Impaired fasting glucose: Code(s): R73.01 - Impaired fasting glucose Category: Medical (4) Recurrent UTI (urinary tract infection): Code(s): N39.0 - Urinary tract infection, site not specified Category: Medical (5) Vaginal prolapse: Code(s): N81.10 - Cystocele, unspecified Category: Medical (6) Congestion of nasal sinus: Code(s): R09.81 - Nasal congestion Plan For her chronic sinus congestion, not relieved by several courses of antibiotics, will put her on a Medrol dose pack as a short-term intervention. The patient understands the potential for increased blood pressure and blood sugar with steroid use and agreed to the plan. She is currently on doxycycline 100 mg daily as prescribed by her urologist for prevention of urinary tract infection and she has been referred to a urogynecologist for pelvic organ prolapse management, focusing on the urinary incontinence exacerbated by coughing. The patient expressed understanding and will attempt to expedite the referral process. We discussed dietary changes to manage triglyceride levels, and I reinforced the support of family in maintaining these changes. The patient was advised to track symptoms and report any complications or lack of improvement. Medications: New methylprednisolone (Medrol (Rene)) 4 mg PO QAM 21 ea 0RF
== END 2024-09-05 13:15 | disposition home or self-care (01) ==
PROVIDERS: PCP Internal Medicine; Visit Provider Internal Medicine
DX: I10 Essential (primary) hypertension (principal); E78.1 Pure hyperglyceridemia; R73.01 Impaired fasting glucose; N39.0 Urinary tract infection, site not specified; N81.10 Cystocele, unspecified; R09.81 Nasal congestion

== ENCOUNTER → 2024-09-05 11:01 | Outpatient (BNVA) | payer MEDICARE, SELFPAY | PROVIDERS: PCP Internal Medicine; Visit Provider Internal Medicine | DX: I10 Essential (primary) hypertension (principal); E78.1 Pure hyperglyceridemia; R73.01 Impaired fasting glucose; N39.0 Urinary tract infection, site not specified; N81.10 Cystocele, unspecified; R09.81 Nasal congestion | CPT/HCPCS: 99212 ==

== ENCOUNTER 2024-09-17 14:03 | Outpatient (REF) | payer MEDICARE, SELFPAY ==
[2024-09-17 17:54] LABS: Appearance Urine Clear; Color Urine Yellow; Glucose Urine UA Negative (Negative); Leukocyte Esterase Urine Moderate (2+) (Negative); Nitrite Urine Negative (Negative); PH 5.5 (5.0-9.0); UMIC TRIGGER UA YES; Urine Blood Negative (Negative); Urine Ketones Negative (Negative); Urine Protein Negative (Neg-Trace)
[2024-09-17 18:08] LABS: Bacteria Urine 4+ (None Seen); Calcium Oxalate Crystals Urine Present; RBC Urine 0-2 /HPF (0-2); WBC Urine >50 /HPF (0-5)
== END 2024-09-17 14:04 | disposition home or self-care (01) ==
LOC: HO.HMGCLDS 14:03
PROVIDERS: PCP Internal Medicine; Visit Provider Urology
DX: N39.0 Urinary tract infection, site not specified (principal)
CPT/HCPCS: 81001; 87086; 87088; 87186

== ENCOUNTER → 2024-11-01 15:42 | Outpatient (BNVA) | payer MEDICARE, SELFPAY | PROVIDERS: PCP Internal Medicine; Visit Provider Internal Medicine | DX: Z01.818 Encounter for other preprocedural examination (principal); E66.9 Obesity, unspecified; I10 Essential (primary) hypertension; E78.1 Pure hyperglyceridemia; R73.01 Impaired fasting glucose; N39.0 Urinary tract infection, site not specified; Z68.31 Body mass index [BMI] 31.0-31.9, adult | CPT/HCPCS: 96127; 99212 ==

== ENCOUNTER → 2024-11-01 15:42 | Outpatient (AMB) | payer MEDICARE, SELFPAY ==
--- NOTE | 2024-11-01 15:45 | MHC.PC.OV ---
Vital Signs 11/01/24 15:51 Height 5 ft 6 in Weight 192 lb BMI 31.0 BP 100/62 Blood Pressure Location Lt brachial Position Sitting Pulse 73 Pulse Source Pulse Oximeter Pulse Oximetry (%) 98 Oxygen Delivery Method Room Air Intake Visit Reasons: cataract Rt eye 11/12 & Lt eye 12/10 Dr. Melendez Intake Note: Pt is here today for her pre-op cataract surgery Rt eye 11/12 & Lt eye 12/10 Dr. Melendez Allergies amoxicillin Allergy (Severe, Verified 11/01/24 16:01) rash Sulfa (Sulfonamide Antibiotics) Allergy (Intermediate, Verified 11/01/24 16:01) rash trimethoprim Adverse Reaction (Severe, Verified 11/01/24 16:01) Diarrhea Seasonal Allergies Adverse Reaction (Intermediate, Verified 11/01/24 16:01) Itchy Eyes Biaxin Allergy (Intermediate, Uncoded 11/01/24 16:01) rash nickel? Allergy (Intermediate, Uncoded 11/01/24 16:01) rash Medication List - Last Reconciled 11/01/24 by Neeta Pierce MD ascorbic acid (vitamin C) 500 mg PO DAILY cephalexin 250 mg PO ONCE cholecalciferol (vitamin D3) 25 mcg PO DAILY cranberry 500 mg PO .daily docusate sodium (Colace) 100 mg PO DAILY estradiol (Vagifem) 10 mcg vaginal 2XW furosemide (Lasix) 20 mg PO DAILY glucosamine sulfate (Glucosamine) 500 mg PO DAILY loratadine (Claritin) 10 mg PO DAILY losartan 100 mg PO DAILY metoprolol succinate ER 50 mg PO DAILY nifedipine ER (Procardia XL) 60 mg PO DAILY zinc 50 mg PO DAILY Tobacco use date assessed: 11/01/24 Fall risk assessment: No Falls in past year Last assessed Fall Risk: 11/01/24 Dental Screening Dental Screen Date: 11/01/24 Did you have a dental visit in the last 12 months?: Yes Did you have a dental problem in the last 6 months where you did not have access to dental care?: No Was dental information given to patient?: Patient has dentist HPI cataract Rt eye 11/12 & Lt eye 12/10 Dr. Melendez HPI Details 79 -year-old lady with history of recurrent urinary tract infections currently on maintenance cephalexin 250 mg once a day, impaired fasting glucose, obesity, hypertension, seasonal allergies, vaginal prolapse, and osteoarthritis, here today for a preoperative examination prior to cataract surgery scheduled for 11/12/2024 for right eye and 12/10/2024 for right eye requested by Dr. Melendez. She has been feeling well, blood pressure has been stable on present treatment, with no current complaints at present time. Patient states that she has not had any urinary tract infections since starting daily cephalexin intake started by her urologist [facility] Medical History (Updated 11/01/24 @ 16:21 by Neeta Pierce MD) Cholelithiasis Liver mass Recurrent UTI (urinary tract infection) Impaired fasting glucose Hypertriglyceridemia Vaginal dryness, menopausal Obesity Right nephrolithiasis History of basal cell carcinoma Seasonal allergies Essential hypertension Osteoarthritis of left knee Surgical History History of appendectomy S/P correction of deviated nasal septum H/O dilation and curettage History of colonoscopy H/O lithotripsy History of arthroplasty of left knee Family History Father Essential hypertension CVA (cerebral vascular accident) CVD (cardiovascular disease) Mother Essential hypertension Bone cancer Social History Housing: Condominium Alcohol intake: current Alcohol intake frequency: holidays/special occasions only Patient Tobacco Use Status: Former Tobacco user Tobacco use type: Cigarette Years Smoked: 5 yrs e-Cigarette/Vaping Use: Never Used Current occupational status: retired Cognitive needs: No Hearing needs: No Vision needs: Yes Questionnaire PHQ-9 Over the last 2 weeks, how often have you been bothered by any of the following problems? 1. Little interest or pleasure in doing things: not at all 2. Feeling down, depressed, or hopeless: not at all 3. Trouble falling or staying asleep, or sleeping too much: not at all 4. Feeling tired or having little energy: not at all 5. Poor appetite or overeating: not at all 6. Feeling bad about yourself - or that you are a failure or have let yourself or your family down: not at all 7. Trouble concentrating on things, such as reading the newspaper or watching television: not at all 8. Moving or speaking so slowly that other people could have noticed. Or the opposite - being so fidgety or restless that you have been moving around a lot more than usual: not at all 9. Thoughts that you would be better off or of hurting yourself in some way: not at all Total score: 0 Depression Screening Interpretation: Negative Depression Screening Done: Yes 83253 - PHQ-9 Billing: Yes Source: Developed by Drs. Jeb Hunter, Radha Snell, Bebeto Smith and colleagues, with an educational amita from [employer]. Thrive Questionnaire Date Thrive assessed: 10/25/24 I am a: Patient What is your living situation today?: I have a steady place to live Within the past 12 months, did the food you bought not last and you didn't have the money to get more?: Never true Within the past 12 months, did you worry whether your food would run out before you got money to buy more?: Never true Do you have trouble paying for medicines?: No Do you have trouble getting transportation to medical appointments?: No Do you have trouble paying your heating and electricity bill?: No Do you have trouble taking care of your child, family member or friend?: No Do you have trouble with day-to-day activities such as bathing, preparing meals, shopping, managing finances, etc.?: No Are you currently unemployed and looking for a job?: No Are you interested in more education?: No Please select the resources that you would like help with: None Currently or been in a relationship where the following occur: No concerns reported THRIVE Score: 0 AUDIT C Alcohol Use Questionnaire (AUDIT-C) 1. How often do you have a drink containing alcohol?: Monthly or less 2. How many drinks containing alcohol do you have on a typical day when you are drinking?: 1 or 2 3. How often do you have six or more drinks on one occasion?: Never Total Score: 1 BOOM-7 AMB Questionnaire BOOM-7 Date BOOM - 7 assessed: 11/01/24 Feeling nervous, anxious, or on edge: 0 = Not at all Not being able to stop or control worryin = Not at all Worrying too much about different things: 0 = Not at all Trouble relaxin = Not at all Being so restless that it is hard to sit still: 0 = Not at all Becoming easily annoyed or irritable: 0 = Not at all Feeling afraid as if something awful might happen: 0 = Not at all Total BOOM-7 score (0-4 normal; 5-9 mild; 10-14 moderate; 15-21 severe): 0 Source: Developed by Drs. Jeb Hunter, Radha Snell, Bebeto Smith and colleagues, with an educational amita from [employer]. OBOM-7 Assessment Billing BOOM-7 Assessment Tool: BOOM-7 Assessment 66435 Review of Systems Const All systems reviewed & are unremarkable except as noted in HPI and below Reports no additional complaints Eyes Reports blurry vision ENT Reports no additional complaints Card Reports no additional complaints Resp Reports no additional complaints GI Reports no additional complaints Reports as per HPI Musc Reports no additional complaints Skin/Breast Denies breast pain, Denies breast mass and Denies rash Neuro Reports no additional complaints Psych Reports no additional complaints Endo Reports no additional complaints Jeremias/Lymph Reports no additional complaints Aller/Immun Reports no additional complaints Physical exam (Primary Care) Vital Signs: Last Vital Signs Pulse 73 11/01/24 15:51 BP 100/62 11/01/24 15:51 Pulse Ox 98 11/01/24 15:51 Oxygen Delivery Method Room Air 11/01/24 15:51 BMI result Body Mass Index 31.0 Tobacco/Smoking Status: Tobacco use Status Tobacco use date assessed 11/01/24 11/01/24 15:49 Patient Tobacco Use Status Former Tobacco user 11/01/24 15:49 Tobacco use type Cigarette 11/01/24 15:49 e-Cigarette/Vaping Use Never Used 11/01/24 15:49 PHQ-9: PHQ-9 Score PHQ-9: Total score 0 11/01/24 16:23 Depression Screening Interpretation: Negative Thrive Assessment: Date of Thrive Assessment Date Thrive assessed 10/25/24 11/01/24 15:49 Currently or been in a relationship where the following occur: No concerns reported Const General: comfortable, no acute distress and alert Orientation/consciousness: oriented to time and patient oriented x3 HENMT Mouth: Normal oral and palatal mucosa present Eyes General: appearance normal, both eyes and all related structures Neck Neck: Yes full ROM, Yes no lymphadenopathy and Yes supple Resp Auscultation: clear to auscultation bilaterally Cardio Rate: regular rate Rhythm: regular rhythm Heart sounds: S1 normal heart sound present and S2 normal heart sound present GI Palpation (GI): Soft to palpation, nontender and no guarding Auscultation: normal bowel sounds General: Yes no CVA tenderness Back/Spine/Pelvis Back: no CVA tenderness and No back tenderness Skin General skin exam: no rashes or lesions noted Neuro General: oriented to time, patient oriented x3, gait normal, moves all extremities and no focal motor deficits Extrem General: Yes full ROM, Yes no joint enlargement, Yes no pedal edema, Yes no calf tenderness and Yes normal gait Psych Appearance: grossly normal and well kempt Mental Status: mental status grossly normal Speech and movement: Normal speech and movement present Affect: normal affect Attitude: cooperative Results Reviewed Results Reviewed: Name: Zoya Yoon Age/Sex: 78/F : 1945 Unit#: [id number] Attend Dr: Neeta Pierce MD Re08/28/24 Status: DEP REF Location: [facility] Disch: SPEC : [id number] FUNMILAYO: 08/28/24 STATUS: COMP REQ : [id number] RECD: 08/28/[address]: Neeta Pierce MD COMP: 08/28/24 ENTERED: 08/28/[address]: ORDERED: Met Prof Fast, AST, ALT, Lipid Panel, Vitamin D 25-OH Test Result Flag Reference Sodium 140 135-145 mmol/L Potassium 3.7 3.3-5.1 mmol/L CL 108 96-108 mmol/L CO2 23 22-29 mmol/L Gap 13 12-20 BUN 21 H 9-16 mg/dL Creat 0.80 0.5-1.4 mg/dL eGFR > 60 Chronic Kidney Disease: Estimated GFR < 60 mL/min/1.73m2 Severe Kidney Disease: Estimated GFR < 15 mL/min/1.73m2 FBS 97 60-99 mg/dL CA 9.5 8.4-10.2 mg/dL AST (GOT) 30 5-31 U/L ALT (GPT) 23 0-31 U/L Triglyceride 192 H <150 mg/dL Desirable Triglyceride: less than 150 mg/dL Borderline High Triglyceride 150-199 mg/dL High Triglyceride: 200-499 mg/dL Very High Triglyceride: greater than or equal to 5OO mg/dL Cholesterol 176 <200 mg/dL Desirable Cholesterol: less than 200 mg/dL Borderline High Cholesterol: 200-239 mg/dL High Cholesterol: greater than 239 mg/dL LDL Calculated 95 <100 mg/dL Desirable LDL: less than 100 mg/dL Near Optimal/Above Optimal LDL: 110-129 mg/dL Borderline High LDL: 130-159 mg/dL High LDL: 160-189 mg/dL Very High LDL: greater than or equal to 190 mg/dL HDL 43 >40 mg/dL Desirable HDL: greater than 40 mg/dL Note: This HDL assay may give artificially low results in patients with liver disease. Vit D 25-OH Tot 88.3 >30 ng/mL Health Based Reference Values* < 20 ng/mL Deficient 20-30 ng/mL Insufficient > 30 ng/mL Sufficient Coding Level of Care Code Est Pt Level 4 (72740) Complex EM visit Add On G2211 Diagnoses Preoperative examination Z01.818 Essential hypertension I10 Hypertriglyceridemia E78.1 Impaired fasting glucose R73.01 Recurrent UTI (urinary tract infection) N39.0 Additional Codes PHQ-9 - 07559 - PHQ-9 Billing: Yes ([id number]) BOOM-7 Assessment Billing - BOOM-7 Assessment Tool: BOOM-7 Assessment 12283 ([id number]) Assessment & Plan Assessment & Plan (1) Preoperative examination: Code(s): Z01.818 - Encounter for other preprocedural examination Plan: Pt is a 79 year old lady, here for preoperative exam for cataract surgery. She has hypertension stable and controlled on present treatment, history of prediabetes, and recurrent urinary tract infection, controlled with daily cephalexin to 50 mg daily. Recent fasting labs checked were within normal limits, and preoperative exam was unremarkable. Patient with a low cardiac risk index for proposed surgery (2) Essential hypertension: Code(s): I10 - Essential (primary) hypertension Category: Medical Plan: Blood pressure at goal of less than 130/80. Continue with current medication. Reinforced importance of following a low sodium diet, getting regular exercise, and lowering stress levels. (3) Hypertriglyceridemia: Code(s): E78.1 - Pure hyperglyceridemia Category: Medical Plan: Fasting lipids are within normal limits. Continue with adherence to healthy eating habits and regular exercise (4) Impaired fasting glucose: Code(s): R73.01 - Impaired fasting glucose Category: Medical Plan: Latest fasting labs showed blood sugar within normal limits (5) Recurrent UTI (urinary tract infection): Code(s): N39.0 - Urinary tract infection, site not specified Category: Medical Plan: Controlled with taking cephalexin 250 mg daily
[2024-11-01 15:51] VITALS: BP 100/62; PULSE 73; O2SAT 98; BMI 31.0
== END ==
PROVIDERS: PCP Internal Medicine; Visit Provider Internal Medicine
DX: Z01.818 Encounter for other preprocedural examination (principal); I10 Essential (primary) hypertension; E78.1 Pure hyperglyceridemia; R73.01 Impaired fasting glucose; N39.0 Urinary tract infection, site not specified

== ENCOUNTER 2024-12-27 11:20 | Outpatient (AMB) | payer MEDICARE, SELFPAY ==
--- NOTE | 2024-12-27 11:38 | MHC.OFFVIS ---
Intake Visit Reasons: 4m follow up Intake Note: Patient is present for 4m PESSARY F/U Urology Medication:Estradiol,Furosemide Antibiotic Allergy:Sulfa, Amoxicillin,Biaxin Blood Thinner:none Director Of Programming Required: No Allergies amoxicillin Allergy (Severe, Verified 12/27/24 11:39) rash Sulfa (Sulfonamide Antibiotics) Allergy (Intermediate, Verified 12/27/24 11:39) rash trimethoprim Adverse Reaction (Severe, Verified 12/27/24 11:39) Diarrhea Seasonal Allergies Adverse Reaction (Intermediate, Verified 12/27/24 11:39) Itchy Eyes Biaxin Allergy (Intermediate, Uncoded 11/01/24 16:01) rash nickel? Allergy (Intermediate, Uncoded 11/01/24 16:01) rash HPI Comments Details: 12/27/24-- 08/24/24--follow-up pessary. The patient states that when she coughs or has a bowel movement the pessary moves out of position. I have discussed options of trying a different type of pessary versus surgical management. The patient is interested in surgical management for the vaginal prolapse. Urinalysis nitrite positive. The patient has been noted to have persistent bacteriuria. She was seen by infectious disease and placed on a 6 month course of doxycycline twice a day she has 30 days left to complete the course of therapy. She denies any UTI symptoms. 07/26/24--Here for fu, states feels vaginal bulge. states she was lifting her (disabled). States her passed and was yesterday. Has difficulty with urine stream, currently on doxycycline prescribed by ID due to recurrent UTI's, also compliant on D Mannose. pelvic exam- cath for 150 mL, grade III cystocle, cervix in normal position. Size 3 open ring pessary inserted 03/28/2024--Pat is here in follow-up due to recurrent UTI. 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 She is allergic to multiple antibiotics, amoxicillin, sulfa, trimethoprim. h/o kidney stone 2004. Last urine culture 02/28/2024 resulted E coli, yung sensitive. She states she has a hemorrhoid and works hard at good hygiene. The patient has had studies including CT imaging, office cystoscopy, urine cytology. She describes UTI symptoms to include now orders urine increased urinary urgency and dysuria. I have discussed that several of her UTIs came back Klebsiella which likely indicates colonization the most recent UTI was E coli. I will increase the Hiprex to b.i.d.. The Flomax has not affected her urinary flow bladder scan PVR was 144 mL which is acceptable. Will discontinue Flomax. I have discussed in addition to cranberry supplement to trial D-mannose [id number]. Will refer to Infectious Disease for additional recommendations. 01/12/2024--Ab is a 78-year-old female who has been followed due to recurrent UTIs. She was seen last in the office 06/09/2023 --cystoscopy findings at that time, revealed no suspicious bladder lesions. Since office visit she has called several times and left urine to be sent for culture. She had urine last checked for Microgen analysis and antibiotics were tailored based on results. Today she states she feels that the UTI has cleared up. She is complaining that she does have to push to empty and has a weak stream. Bladder scan PVR 175 mL. I have discussed a trial of alpha-munira Flomax. I will add Hiprex 1 g daily. She already takes vitamin-C 500 mg, cranberry supplements and Vagifem. 06/09/2023?Zoya is here for 3-month follow-up repeat cystoscopy procedure. She denies any signs of urinary tract infections. She was last seen by me on 03/09/2023 for recurrent urinary tract infection. Vagifem 10 mcg was reordered, and urine for bladder FISH discussed to be ordered. Results of urine FISH are not available in the chart. Plan was to repeat cystoscopy in 3 months. Evaluation today--UA-- Leukocytes: 70 berta/uL; blood: 0. Cystoscopy findings revealed within normal limits; no suspicious bladder lesions. 03/09/23-- The patient is here after 2 month follow-up and for cystoscopy procedure. The patient denies urianry tract symptoms. She is adhering to Vagifem therapy and requests for refill. States having diarrhea with the prophylactically prescribed trimethiprim 100mg and needed to stop. She is been evaluated by GI for the findings of liver and pancreatic changes in the most recent CAT scan. Evaluation today: Blood: negative, leukocytes: 3+. CAT scan results reviewed-- 01/05/23-- Kidneys: WNL, no renal calculi visualized. Cystoscopy findings--Small irregular area on the left side of the bladder neck area about 3 mm. Plan to repeat cystoscopy in 2-3 months. Review of imaging CT of the abdomen results from 02/23/2023 ADRENAL GLANDS AND KIDNEYS: Slight enlargement and nodularity of the left adrenal gland. The right adrenal gland is normal. No abnormalities reported in the kidneys. PFSH Medical History Cholelithiasis Liver mass Recurrent UTI (urinary tract infection) Impaired fasting glucose Hypertriglyceridemia Vaginal dryness, menopausal Obesity Right nephrolithiasis History of basal cell carcinoma Seasonal allergies Essential hypertension Osteoarthritis of left knee Surgical History History of appendectomy S/P correction of deviated nasal septum H/O dilation and curettage History of colonoscopy H/O lithotripsy History of arthroplasty of left knee Family History Father Essential hypertension CVA (cerebral vascular accident) CVD (cardiovascular disease) Mother Essential hypertension Bone cancer Social History [facility]: [facility] Alcohol intake: current Alcohol intake frequency: holidays/special occasions only Patient Tobacco Use Status: Former Tobacco user Tobacco use type: Cigarette Years Smoked: 5 yrs e-Cigarette/Vaping Use: Never Used Current occupational status: retired Cognitive needs: No Hearing needs: No Vision needs: Yes Results AMB Urinalysis, Automated UA Leukoctes 125 Berta/uL Last Edit by Zhanna Rasheed on 12/27/24 12:15 UA Nitrite Negative Last Edit by Zhanna Rasheed on 12/27/24 12:15 UA Urobilinogen 3.5 mg/dL Last Edit by Zhanna Rasheed on 12/27/24 12:15 UA Protein 1 mg/dL Last Edit by Zhanna Rasheed on 12/27/24 12:15 UA pH 5.0 Last Edit by Zhanna Rasheed on 12/27/24 12:15 UA Blood 10 Dagoberto/uL Last Edit by Zhanna Rasehed on 12/27/24 12:15 UA Specific Medina 1.020 Last Edit by Zhanna Rasheed on 12/27/24 12:15 UA Ketone Negative Last Edit by Zhanna Rasheed on 12/27/24 12:15 UA Bilirubin 0 mg/dL Last Edit by Zhanna Rasheed on 12/27/24 12:15 UA Glucose 0 mg/dL Last Edit by Zhanna Rasheed on 12/27/24 12:15 Assessment & Plan Assessment & Plan Orders: Orders AMB Urinalysis Automated Today Z13.9 - Encounter for screening, unspecified Coding
--- OUTSIDE RECORDS SUMMARY | 2024-12-27 14:42 | XMS_ITS | Clinical Summary ---
Author Organization [facility] Address [address] [place] [address] Phone Care Team Providers Care Etcher Apprentice Photoengraving Name Role Phone Nona Pierce MD Primary Care Provider [phone] Allergies Active Allergy Reactions Criticality Noted Date Comments Amoxicillin Other (see comments),Itching,R escobar,Swelling Low 04/16/2020 Facial swelling, rash Clarithromycin Other (see comments) 11/16/2021 Nickel 04/16/2020 Sulfamethoxazole-Trimetho prim Other (see comments) 11/16/2021 Medications Zinc Sulfate 66 MG tablet Take by mouth Active senna (SENOKOT) 8.6 MG tablet Take 2 tablets by mouth in the morning. 0 Active loratadine (CLARITIN) 10 MG tablet Take 1 tablet by mouth 1 (one) time each day Active Glucosamine-Cho ndroitin 500-400 MG capsule Take 1 capsule by mouth 3 times a day Active cholecalciferol (VITAMIN D-3) 25 MCG (1000 UT) tablet Take 1,000 Units by mouth in the morning. Active ascorbic acid (VITAMIN C) 500 MG tablet Take 500 mg by mouth in the morning. Active Cranberry 400 MG capsule Take 1 capsule by mouth 1 (one) time each day Active Yuvafem 10 MCG tablet INSERT 1 VAGINALLY TWICE WEEKLY, TUESDAY AND Tuesday 4 Active methenamine (HIPREX) 1 g tablet TAKE 1 TABLET ORALLY DAILY FOR RECURRENT UTIS 4 Active tamsulosin (FLOMAX) 0.4 MG 24 hr capsule TAKE 1 CAPSULE ORALLY BEDTIME FOR TO INCREASE URINARY FLOW AND BLADDER EMPTYING 4 Active metoprolol succinate XL (TOPROL XL) 50 MG 24 hr tablet 4 Active furosemide (LASIX) 20 MG tablet TAKE 1 TABLET DAILY 90 tablet 3 4 Active losartan (COZAAR) 100 MG tablet TAKE 1 TABLET DAILY 90 tablet 3 4 Active NIFEdipine XL (PROCARDIA XL) 60 MG 24 hr tablet TAKE 1 TABLET ONCE DAILY. DO NOT CRUSH, CHEW, OR SPLIT. 90 tablet 3 5 Active Active Problems Problem Noted Date Diagnosed Date Primary osteoarthritis of left knee 11/23/2021 Chronic kidney disease stage 1 11/16/2021 Essential hypertension 11/16/2021 Hypertensive renal disease 11/16/2021 Proteinuria 11/16/2021 History of left total knee replacement 0 Encounters Date Type Department Care Team Description 11/21/2024 Refill [facility] [address] [place] [address] Gurinder Wayne MD from Last 3 Months Immunizations Name Administration Dates Next Due Influenza Split High Dose Preservative Free IM 0 06/17/2019,07/17/2014 Influenza, Unspecified 07/08/2022 Pneumococcal Polysaccharide 10/28/2009 Family History Medical History Relation Comments Gout Father Hypertension Father Cancer Mother Hypertension Mother Hypertension Sibling brother & sister Relation Status Comments Father Mother Sibling Social History Tobacco Use Types Packs/Day Years Used Date Smoking Tobacco: Former Cigarettes 0 10/17/1959 - 10/17/1965 Smokeless Tobacco: Never Tobacco Cessation:Counseling Given: No Comments:Smoking History Info:Unknown Alcohol Use Standard Drinks/Week Comments Yes 0 (1 standard drink = 0.6 oz pure alcohol) Alcoholic Drinks/day: Occasional social drink Comments Unknown Sex and Gender Information Value Date Recorded Sex Assigned at Not on file Legal Sex Female 5:03 PM EST Gender Identity Not on file Sexual Orientation Not on file Last Filed Vital Signs Vital Sign Reading Time Taken Comments Blood Pressure 138/72 01/23/2024 1:25 PM EDT Pulse 96 01/23/2024 1:25 PM EDT Temperature - - Respiratory Rate - - Oxygen Saturation 95% 01/23/2024 1:25 PM EDT Inhaled Oxygen Concentration - - Weight 84.6 kg (186 lb 9.6 oz) 01/23/2024 1:25 P M EDT Height 167.6 cm (5' 6 ) 11/20/2020 12:01 PM EST Body Mass Index 30.12 11/20/2020 12:01 PM EST Plan of Treatment Upcoming Encounters Date Type Department Care Team (Late st Contact Info) Description 01/22/2025 1:00 PM EDT Office Visit [facility] [address] [address] Brent CasandraSELENA [address] [address] Health Maintenance Due Date Last Done Comments Pneumococcal Vaccine: 65+ Years (2 of 2 - PCV) 10/28/2010 10/28/2009 Influenza Vaccine (#1) 2024 2, 07/08/2022, 06/17/2019, Additional history exists Hepatitis B Vaccine Aged Out No longe r eligible based on patient's age to complete this topic Insurance [facility] Care Teams Etcher Apprentice Photoengraving Relationship Specialty Start Date End Date Nona Pierce MD [place] [address] PCP - General 10/27/20
== END 2024-12-27 12:07 | disposition home or self-care (01) ==
LOC: HO.HUSH 11:21
PROVIDERS: PCP Internal Medicine; Visit Provider Urology
DX: Z13.9 Encounter for screening, unspecified (principal)

== ENCOUNTER → 2024-12-27 11:20 | Outpatient (BNVA) | payer MEDICARE, SELFPAY | PROVIDERS: PCP Internal Medicine; Visit Provider Urology | DX: N39.0 Urinary tract infection, site not specified (principal); N81.10 Cystocele, unspecified; R33.9 Retention of urine, unspecified; N95.2 Postmenopausal atrophic vaginitis; Z96.0 Presence of urogenital implants; Z79.899 Other long term (current) drug therapy | CPT/HCPCS: 81003; 99212 ==

== ENCOUNTER 2025-01-10 12:28 | Outpatient (REF) | payer MEDICARE, SELFPAY ==
--- OUTSIDE RECORDS SUMMARY | 2025-01-10 15:39 | XMS_ITS | Clinical Summary ---
Author Organization [facility] Address 100 [facility] [address] 0 [place] [address] Phone Care Team Providers Care Plant Equipment Engineer Name Role Phone Nona Pierce MD Primary Care Provider +1- [phone] Allergies Active Allergy Reactions Criticality Noted Date [...] [facility] [place] [address] [place] [address] Gurinder Wayne MD from Last 3 Months [...] Office Visit [facility] [address] [address] Brent CasandraSELENA [address] [address] Health Maintenance Due Date Last Done Comments Pneumococcal Vaccine: 65+ Years (2 of 2 - PCV) 10/28/2010 10/28/2009 Influenza Vaccine (#1) 2024 2, 07/08/2022, 06/17/2019, Additional history exists Hepatitis B Vaccine Aged Out No longe r eligible based on patient's age to complete this topic Insurance [facility] Care Teams Plant Equipment Engineer Relationship Specialty Start Date End Date Nona Pierce MD [facility] [place] [address] PCP - General 10/27/20
== END 2025-01-10 12:29 | disposition home or self-care (01) ==
LOC: HO.MAMMO 12:28
PROVIDERS: PCP Internal Medicine; Visit Provider Internal Medicine
DX: Z12.31 Encounter for screening mammogram for malignant neoplasm of breast (principal)
CPT/HCPCS: 77063; 77067

== ENCOUNTER → 2025-01-10 12:45 | Outpatient (BNV) | payer MEDICARE, SELFPAY | PROVIDERS: PCP Internal Medicine; Visit Provider Internal Medicine | DX: Z12.31 Encounter for screening mammogram for malignant neoplasm of breast (principal) | CPT/HCPCS: 77063; 77067 ==

== ENCOUNTER 2025-01-15 14:02 | Outpatient (REF) | payer MEDICARE, SELFPAY ==
[2025-01-15 16:33] LABS: Appearance Urine Cloudy; Color Urine Yellow; Glucose Urine UA Negative (Negative); Leukocyte Esterase Urine Large (3+) (Negative); Nitrite Urine Negative (Negative); PH 5.5 (5.0-9.0); Specific Gravity - Urine 1.015 (1.005-1.025); UMIC TRIGGER UACC YES; Urine Blood Negative (Negative); Urine Ketones Negative (Negative); Urine Protein Negative (Neg-Trace)
--- OUTSIDE RECORDS SUMMARY | 2025-01-15 16:47 | XMS_ITS | Clinical Summary ---
Author Organization [facility] Address 100 [facility] [address] 0 [place] [address] Phone Care Team Providers Care Systems Developer Name Role Phone Nona Pierce MD Primary Care Provider +1- [phone] Allergies Active Allergy Reactions Criticality Noted Date [...] [place] [address] [place] [address] Gurinder Wayne MD from Last 3 Months [...] Office Visit [facility] [address] [address] Casandra KennedySELENA [address] [address] Health Maintenance Due Date Last Done Comments Pneumococcal Vaccine: 65+ Years (2 of 2 - PCV) 10/28/2010 10/28/2009 Influenza Vaccine (#1) 2024 2, 07/08/2022, 06/17/2019, Additional history exists Hepatitis B Vaccine Aged Out No longe r eligible based on patient's age to complete this topic Procedures Procedure Name Priority Date/Time Associated Diagnosis Comments URINALYSIS MICROSCOPIC W/REFLEX TO CULTURE Routine 01/15/2025 4:17 PM EDT from Last 3 Months Results * (ABNORMAL) Urinalysis Microscopic w/Reflx to Culture (01/15/2025 4:17 PM EDT) Color Urine Yellow See orde r comments Appearance Urine Cloudy See order comments pH Urine 5.5 5.0 - 9.0 See order comments Glucose Urine Negative Negative mg/dL See order comments Blood, Urine Negative Negative See ord er comments Specific Franklin Urine 1.015 1.005 - 1.025 See order comments Protein Urine Negative Neg-Trace mg/dL See order comments Ketones, Urine Negative Negative mg/dL See order comments Nitrite, Urine Negative Negative See o rder comments Leukocyte Esterase Urine Large (3+)(A) Negative See order comments 01/15/2025 4:17 PM EDT 01/15/2025 4:17 PM EDT Narrative [place] - 01/15/2025 4:34 PM EDT Urine, Clean Catch Gurinder Wayne MD LAB URINE ORDERABLES Final Resul t [place] See order comments [place] [address] from Last 3 Months Insurance [facility] Care Teams Systems Developer Relationship Specialty Start Date End Date Nona Pierce MD [address] [place] [address] PCP - General 10/27/20
[2025-01-15 16:53] LABS: Bacteria Urine 1+ (None Seen); Hyaline Casts Urine 0-2 /LPF (0-2); UACC Culture Trigger YES
[2025-01-15 17:04] LABS: Anion Gap 13 (12-20); Blood Urea Nitrogen 15 mg/dL (9-16); Calcium 9.7 mg/dL (8.4-10.2); Carbon Dioxide 21 mmol/L (22-29); Chloride 110 mmol/L (96-108); Estimated Glomerular Filt Rate > 60; Potassium 3.9 mmol/L (3.3-5.1); Sodium 140 mmol/L (135-145)
[2025-01-15 18:01] LABS: Creatinine Urine 74.97 mg/dL; Microalbum/Creatinine Ratio Ur 18.6 ug/mg cr (<30)
== END 2025-01-15 14:03 | disposition home or self-care (01) ==
LOC: HO.HMGCLDS 14:02
PROVIDERS: PCP Internal Medicine; Visit Provider Internal Medicine Nephrology
DX: R80.9 Proteinuria, unspecified (principal)
CPT/HCPCS: 36415; 80051; 81001; 82043; 82310; 82565; 82570; 84520; 87086

== ENCOUNTER 2025-01-21 09:00 | Outpatient (RCR) | payer MEDICARE, SELFPAY ==
[2025-01-03 10:43] VITALS: BP 124/72; PULSE 65; O2SAT 96
--- NOTE | 2025-01-03 12:36 | MHC.PT.EP ---
[facility] [place] Office [place] Office [place] Office [address] [phone] F: [phone] F: [phone] F: [phone] F: [phone] Physical Therapy Plan of Care Date of Evaluation: 01/03/25 Date of Surgery: Diagnosis: This is a 79 yo female presenting to skilled PT with a script for BPPV, unspecified ear. Patient reports symptoms have gotten worse over the last year or so. Patient reports that her symptoms appear constant. She reports that there are no motions that make her worse but does get motion sickness (car and cruises). Assessment: This is a 79 yo female presenting to skilled PT with a script for BPPV, unspecified ear. This is a 79 yo female presenting to skilled PT with a script for BPPV, unspecified ear. Patient reports symptoms have gotten worse over the last year or so. Patient reports that her symptoms appear constant. She reports that there are no motions that make her worse but does get motion sickness (car and cruises). Examination shows - oculomotor tests with saccades, (-) VBI B, but limited cervical AROM. She was (-) for BPPV with brissa-hallpike B and roll test B. Balance was decreased with Rosa SOPT and DGI. S/S are not consistent with BPPV however she has decreased balance, impaired lumbar strength and gait pattern so she would benefit from PT 2x/wk for 4wks to address impairments, implement HEP and optimize functional mobility. Frequency and Duration: The patient will be seen 2x/wk for 4wks Short Term Goals: Boiling Off Winder Goals: I in HEP Negative in all 6 canals for dizziness and nystagmus Return to normal gait pattern without reports fo LOB due to dizziness Treatment Plan: Modalities to reduce pain, spasms and effusion. Manual therapy to restore motion and function. Therapeutic exercise to improve strength and flexibility. Neuromuscular re-education for posture and balance. Therapeutic activities to return to functional activities of daily living. Electronically signed by: Clara Soria PT Please sign and return to therapist. Thank you for your referral.
--- NOTE | 2025-02-21 10:03 | MHC.PT.DC ---
[facility] [place] Office [place] Office [place] Office [address] Silvana Wood[address] [phone] F: [phone] F: [phone] F: [phone] F: [phone] Physical Therapy Discharge Report Diagnosis: This is a 79 yo female presenting to skilled PT with a script for BPPV, unspecified ear. Date of Surgery: Date of Evaluation: 01/03/25 Date of Discharge: 02/21/25 Treatments to Date: 4 Cancellations to Date: 0 No Shows to Date: 0 Discharge Status: Achieved Goals Improved Function Independent with HEP Patient Elected to Stop Discharge Summary: 01/21: Pt was educated on a review of her HEP. We talked about her going away and continuing her HEP on her own vs returning to PT when she gets back from her trip. She reports that she feels like she could continue on her own. I will keep her chart open if she changes her mind and close it after 30 days. Electronically signed by: Clara Soria, PT Please sign and return to therapist. Thank you for your referral.
== END 2025-02-21 10:04 | disposition home or self-care (01) ==
LOC: HO.PTCHIC 09:00
PROVIDERS: PCP Internal Medicine; Visit Provider Internal Medicine
DX: H81.10 Benign paroxysmal vertigo, unspecified ear (principal)
CPT/HCPCS: 97110; 97112; 97162

== ENCOUNTER 2025-03-04 11:43 | Outpatient (AMB) | payer MEDICARE, SELFPAY ==
--- NOTE | 2025-03-04 12:06 | A.OFFPC_ITS ---
Vital Signs 03/04/25 12:14 Height 5 ft 6 in Weight 193 lb BMI 31.1 BP 122/72 Blood Pressure Location Lt brachial Position Sitting Respiration 16 Pulse 68 Pulse Source Pulse Oximeter Temp 97.5 F Temp Source Oral Pulse Oximetry (%) 97 Oxygen Delivery Method Room Air Intake Visit Reasons: PE Intake Note: Pt is here today for her PE: last mammogram 01/10/25, bone density scan 12/22/21, colonoscopy 05/10/13 Allergies amoxicillin Allergy (Severe, Verified 03/04/25 12:07) rash Sulfa (Sulfonamide Antibiotics) Allergy (Intermediate, Verified 03/04/25 12:07) rash trimethoprim Adverse Reaction (Severe, Verified 03/04/25 12:07) Diarrhea Seasonal Allergies Adverse Reaction (Intermediate, Verified 03/04/25 12:07) Itchy Eyes Biaxin Allergy (Intermediate, Uncoded 03/04/25 12:07) rash nickel? Allergy (Intermediate, Uncoded 03/04/25 12:07) rash Tobacco use date assessed: 03/04/25 Fall risk assessment: No Falls in past year Last assessed Fall Risk: 03/04/25 Dental Screening Dental Screen Date: 03/04/25 Did you have a dental visit in the last 12 months?: Yes Did you have a dental problem in the last 6 months where you did not have access to dental care?: No Was dental information given to patient?: Patient has dentist HPI PE HPI Details 79-year-old lady with history of hyperte nsion, osteoarthritis, impaired fasting glucose, obesity, hypertriglyceridemia, recurrent urinary tract infection due to incomplete bladder emptying and vaginal prolapse, osteopenia of left femoral neck, here today for her physical exam. She is up-to-date with her screening mammogram last done 01/10/25 with benign findings, she had a bone density scan 12/22/21 which showed osteopenia left femoral neck due for recheck. Her last colonoscopy was done by Dr. Franklin 03/28/2023 which showed only diverticulosis and internal hemorrhoids, given negative findings, no further screening indicated per Dr. Franklin. [facility] Medical History Osteopenia of left femoral neck Cholelithiasis Liver mass Recurrent UTI (urinary tract infection) Impaired fasting glucose Hypertriglyceridemia Vaginal dryness, menopausal Obesity Right nephrolithiasis History of basal cell carcinoma Seasonal allergies Essential hypertension Osteoarthritis of left knee Surgical History History of appendectomy S/P correction of deviated nasal septum H/O dilation and curettage History of colonoscopy H/O lithotripsy History of arthroplasty of left knee Family History Father Essential hypertension CVA (cerebral vascular accident) CVD (cardiovascular disease) Mother Essential hypertension Bone cancer Social [facility] Alcohol intake: current Alcohol intake frequency: holidays/special occasions only Patient Tobacco Use Status: Former Tobacco user Tobacco use type: Cigarette Years Smoked: 5 yrs e-Cigarette/Vaping Use: Never Used Current occupational status: retired Cognitive needs: No Hearing needs: No Vision needs: Yes Questionnaire PHQ-9 Over the last 2 weeks, how often have you been bothered by any of the following problems? 1. Little interest or pleasure in doing things: not at all 2. Feeling down, depressed, or hopeless: not at all 3. Trouble falling or staying asleep, or sleeping too much: not at all 4. Feeling tired or having little energy: not at all 5. Poor appetite or overeating: not at all 6. Feeling bad about yourself - or that you are a failure or have let yourself or your family down: not at all 7. Trouble concentrating on things, such as reading the newspaper or watching television: not at all 8. Moving or speaking so slowly that other people could have noticed. Or the opposite - being so fidgety or restless that you have been moving around a lot m ore than usual: not at all 9. Thoughts that you would be better off or of hurting yourself in some way: not at all Total score: 0 Depression Screening Interpretation: Negative Depression Screening Done: Yes 99914 - PHQ-9 Billing: Yes Source: Developed by Drs. Jeb Hunter, Radha Snell, Bebeto Smith and colleagues, with an educational amita from [employer]. Thrive Questionnaire Date Thrive assessed: 10/25/24 I am a: Patient What is your living situation today?: I have a steady place to live Within the past 12 months, did the food you bought not last and you didn't have the money to get more?: Never true Within the past 12 months, did you worry whether your food would run out before you got money to buy more?: Never true Do you have trouble paying for medicines?: No Do you have trouble getting transportation to medical appointments?: No Do you have trouble paying your heating and electricity bill?: No Do you have trouble taking care of your child, family member or friend?: No Do you have trouble with day-to-day activities such as bathing, preparing meals, shopping, managing finances, etc.?: No Are you currently unemployed and looking for a job?: No Are you interested in more education?: No Please select the resources that you would like help with: None Currently or been in a relationship where the following occur: No concerns reported THRIVE Score: 0 BOOM-7 AMB Questionnaire BOOM-7 Date BOOM - 7 assessed: 11/01/24 Source: Developed by Drs. Jeb Hunter, Radah Snell, Bebeto Smith and colleagues, with an educational amita from [employer]. Review of Systems Const All systems reviewed & are unremarkable except as noted in HPI and below Reports no additional complaints Eyes Reports no additional complaints ENT Reports no additional complaints Card Reports no additional complaints Resp Reports no additional complaints GI Reports no additional complaints Reports as per HPI and Denies nipple discharge Musc Reports no additional complaints Skin/Breast Denies breast pain, Denies breast mass, Denies nipple discharge and Denies rash Neuro Reports no additional complaints Psych Reports no additional complaints Endo Reports no additional complaints Jeremias/Lymph Reports no additional complaints Aller/Immun Reports no additional complaints Physical exam (Primary Care) Vital Signs: Last Vital Signs Temp 97.5 F 03/04/25 12:14 Pulse 68 03/04/25 12:14 Resp 16 03/04/25 12:14 BP 122/72 03/04/25 12:14 Pulse Ox 97 03/04/25 12:14 Oxygen Delivery Method Room Air 03/04/25 12:14 BMI result Body Mass Index 31.1 Tobacco/Smoking Status: Tobacco use Status Tobacco use date assessed 03/04/25 03/04/25 12:09 Patient Tobacco Use Status Former Tobacco user 03/04/25 12:09 Tobacco use type Cigarette 03/04/25 12:09 e-Cigarette/Vaping Use Never Used 03/04/25 12:09 PHQ-9: PHQ-9 Score PHQ-9: Total score 0 03/04/25 12:55 Depression Screening Interpretation: Negative Thrive Assessment: Date of Thrive Assessment Date Thrive assessed 10/25/24 03/04/25 12:09 Currently or been in a relationship where the following occur: No concerns reported Const General: comfortable, no acute distress and alert Orientation/consciousness: oriented to time and patient oriented x3 HENMT Mouth: Normal oral and palatal mucosa present Eyes General: appearance normal, both eyes and all related structures Neck Neck: Yes full ROM, Yes no lymphadenopathy and Yes supple Resp Auscultation: clear to auscultation bilaterally Cardio Rate: regular rate Rhythm: regular rhythm Heart sounds: S1 normal heart sound present and S2 normal heart sound present GI Palpation (GI): Soft to palpation, nontender and no guarding Auscultation: normal bowel sounds General: Yes no CVA tenderness Back/Spine/Pelvis Back: no CVA tenderness and No back tenderness Skin General skin exam: no rashes or lesions noted Neuro General: oriented to time, patient oriented x3, gait normal, moves all extremities and no focal motor deficits Extrem General: Yes full ROM, Yes no joint enlargement, Yes no pedal edema, Yes no calf tenderness and Yes normal gait Psych Appearance: grossly normal and well kempt Mental Status: mental status grossly normal Speech and movement: Normal speech and movement present Affect: normal affect Attitude: cooperative Coding Level of Care Code Est Pt Level 4 (79475) Est Pt Prev Care >65y(67921) Diagnoses Annual visit for general adult medical examination with abnormal findings Z. Essential hypertension I10 Obesity E66.9 Obesity type: due to excess calories Hypertriglyceridemia E78.1 Impaired fasting glucose R73.01 Osteopenia of left femoral neck M85.852 Recurrent UTI (urinary tract infection) N39.0 Additional Codes PHQ-9 - 30022 - PHQ-9 Billing: Yes ([id number]) Assessment & Plan Assessment & Plan (1) Annual visit for general adult medical examination with abnormal findings: Code(s): Z00.01 - Encounter for general adult medical examination with abnormal findings Plan: Will check appropriate labs. Continue regular dental visit every 6 months and regular eye exams, at least every 2 years. Take adequate calcium in diet and vitamin-D 3 at 2000 IU per cap once a day, in addition to weight-bearing exercises to help maintain good muscle tone and weight control. Instructed to do self-breast exam, and continue with yearly mammogram, last bone density scan showed osteopenia left femoral neck 2 years ago due for a repeat bone density scan which was ordered today. Up-to-date with her vaccinations . Last screening colonoscopy was done by Dr. Franklin in 2022, with negative finding, repeat screening no longer indicated per GI specialist (2) Essential hypertension: Code(s): I10 - Essential (primary) hypertension Category: Medical Plan: Blood pressure at goal of less than 130/80. Continue with losartan 100 mg once a day and metoprolol succinate 50 mg daily together with nifedipine ER 60 mg daily Reinforced importance of following a low sodium diet, getting regular exercise, and lowering stress levels. (3) Obesity: Code(s): E66.9 - Obesity, unspecified Category: Medical Qualifiers: Obesity type: due to excess calories Plan: Continue with adherence to healthy eating habits and start exercising at least moderate intensity exercise study minutes 3 to 4 times a week. (4) Hypertriglyceridemia: Code(s): E78.1 - Pure hyperglyceridemia Category: Medical Plan: Continue with adherence to healthy eating habits and regular exercise (5) Impaired fasting glucose: Code(s): R73.01 - Impaired fasting glucose Category: Medical Plan: Your previous fasting blood sugars were elevated above 100 mg/dL. Impaired glucose metabolism increases the risk for developing diabetes mellitus type 2, as well as heart attack and stroke later on. Lifestyle changes that promotes weight loss, healthy eating habits, and regular exercise are important, and can prevent the progression to diabetes (6) Osteopenia of left femoral neck: Code(s): M85.852 - Other specified disorders of bone density and structure, left thigh Category: Medical Plan: bone density ordered today (7) Recurrent UTI (urinary tract infection): Code(s): N39.0 - Urinary tract infection, site not specified Category: Medical Plan: Followed by Urology, Orders: Orders Lipid Panel 03/04/25 E66.9 - Obesity, unspecified, E78.1 - Pure hyperglyceridemia, I10 - Essential (primary) hypertension, R73.01 - Impaired fasting glucose Hemoglobin A1c 03/04/25 E66.9 - Obesity, unspecified, E78.1 - Pure hyperglyceridemia, I10 - Essential (primary) hypertension, R73.01 - Impaired fasting glucose Basic Metabolic Panel Fasting 03/04/25 E66.9 - Obesity, unspecified, E78.1 - Pure hyperglyceridemia, I10 - Essential (primary) hypertension, R73.01 - Impaired fasting glucose Aspartate Amino Transferase 03/04/25 E66.9 - Obesity, unspecified, E78.1 - Pure hyperglyceridemia, I10 - Essential (primary) hypertension, R73.01 - Impaired fasting glucose Alanine Aminotransferase 03/04/25 E66.9 - Obesity, unspecified, E78.1 - Pure hyperglyceridemia, I10 - Essential (primary) hypertension, R73.01 - Impaired fasting glucose Vitamin D 25-OH Total 03/04/25 E66.9 - Obesity, unspecified, E78.1 - Pure hyperglyceridemia, I10 - Essential (primary) hypertension, R73.01 - Impaired fasting glucose XR DEXA axial skeleton 01/20/26 M85.852 - Other specified disorders of bone density and structure, left thigh, Z78.0 - Asymptomatic menopausal state
[2025-03-04 12:14] VITALS: BP 122/72; PULSE 68; RESP 16; TEMP 36.4; O2SAT 97; BMI 31.1
--- OUTSIDE RECORDS SUMMARY | 2025-03-04 12:30 | XMS_ITS | Encounter Summary ---
Author Organization [facility] Address [address] [facility] [facility] 200 [place] [address] Phone Care Team Providers Care Major Assembly Lineman Name Role Phone Nona Pierce MD Primary Care Provider +1- [phone] Reason for Visit * Reason Comments Med Refill Encounter Details Date Type Department Care Team (Late Contact Info) Description 03/04/2025 Refill [facility] [address] [facility] 200 [place] [address] Gurinder Wayne MD [address] [address] Social History Tobacco Use Types Packs/Day Years Used Date Smoking Tobacco: Former Cigarettes 0 10/17/1959 - 10/17/1965 Smokeless Tobacco: Never Comments:Smoking History Inf o:Unknown Alcohol Use Standard Drinks/Week Comments Yes 0 (1 standard drink = 0.6 oz pure alcohol) Alcoholic Drinks/day: Occasional social drink Comments Unknown Sex and Gender Information Value Date Recorded Sex Assigned at Not on file Legal Sex Female 5:03 PM EST Gender Identity Not on file Sexual Orientation Not on file documented as of this encounter Plan of Treatment Upcoming Encounters Date Type Department Care Team (Late st Contact Info) Description 01/23/2026 1:00 PM EDT Office Visit [facility] [address] [address] Gurinder Wayne MD [address] [address] documented as of this encounter Visit Diagnoses Not on filedocumented in this encounter Care Teams Major Assembly Lineman Relationship Specialty Start Date End Date Nona Pierce MD [address] [place] [address] PCP - General 10/27/20 documented as of this encounter
--- OUTSIDE RECORDS SUMMARY | 2025-03-04 12:30 | XMS_ITS | Clinical Summary ---
Author Organization [facility]. Address [address] [facility] [address] [place] [address] Phone Care Team Providers Care Autism Motor Specialist Name Role Phone Nona Pierce MD Primary Care Provider +1- [phone] Allergies Active Allergy Reactions Criticality Noted Date Comments Amoxicillin Other (see comments),Itching,R escobar,Swelling Low 04/16/2020 Facial swelling, rash Clarithromycin Other (see comments) 11/16/2021 Nickel 04/16/2020 Sulfamethoxazole-Trimetho prim Other (see comments) 11/16/2021 Medications Zinc Sulfate 66 MG tablet Take by mouth Active loratadine (CLARITIN) 10 MG tablet Take 1 tablet by mouth 1 (one) time each day Active Glucosamine-Addi droitin 500-400 MG capsule Take 1 capsule by mouth 3 times a day Active cholecalciferol (VITAMIN D-3) 25 MCG (1000 UT) tablet Take 1,000 Units by mouth in the morning. Active ascorbic acid (VITAMIN C) 500 MG tablet Take 500 mg by mouth in the morning. Active Cranberry 400 MG capsule Take 1 capsule by mouth 1 (one) time each day Active metoprolol succinate XL (TOPROL XL) 50 MG 24 hr tablet 12/23/2023 Act rosalba furosemide (LASIX) 20 MG tablet TAKE 1 TABLET DAILY 90 tablet 3 03/16/2024 Active losartan (COZAAR) 100 MG tablet TAKE 1 TABLET DAILY 90 tablet 3 09/05/2024 Active NIFEdipine XL (PROCARDIA XL) 60 MG 24 hr tablet TAKE 1 TABLET ONCE DAILY. DO NOT CRUSH, CHEW, OR SPLIT. 90 tablet 3 11/21/2024 Active cephalexin (KEFLEX) 250 MG capsuleIndicatio ns:UTI prophylaxis Take 250 mg by mouth 1 (one) time each day Active Estradiol (Yuvafem) 10 MCG tabletIndication s:Atrophic Vaginitis Insert 10 mcg into the vagina 1 (one) time each day Active Active Problems Problem Noted Date Diagnosed Date Primary osteoarthritis of left knee 11/23/2021 Chronic kidney disease stage 1 11/16/2021 Hypertension 11/16/2021 Hypertensive renal disease 11/16/2021 Microalbuminuria 11/16/2021 History of left total knee replacement 0 Encounters Date Type Department Care Team Description 03/04/2025 Refill [facility] [address] [facility] [address] [place] [address] Gurinder Wayne MD 01/22/2025 1:00 PM EDT Office Visit [facility] [place] [id number] [facility] [address] [place] [phone] Casandra Kennedy ARNP Hypertension (Primary Dx); Microalbuminuria 01/17/2025 Documentation Only [facility] [place] [id number] [facility] [address] [place] [phone] Loyda Aiken from Last 3 Months Immunizations Immunization Administration Dates Next Due Influenza Split High [...] 10/17/1965 Smokeless Tobacco: Never Tobacco Cessation:Counseling Given: Not Answered Comments:Smoking History Info:Unknown Alcohol Use Standard Drinks/Week [...] Sign Reading Time Taken Comments Blood Pressure 122/70 01/22/2025 12:56 PM EDT Pulse 72 01/22/2025 12:56 PM EDT Temperature - - Respiratory Rate - - Oxygen Saturation 95% 01/23/2024 1:25 PM EDT Inhaled Oxygen Concentration - - Weight 88.5 kg (195 lb) 01/22/2025 12:56 PM EDT Height 167.6 cm (5' 6 ) 11/20/2020 12:01 PM EST Body Mass Index 31.47 11/20/2020 12:01 PM EST Plan of Treatment Upcoming Encounters Date Type Department Care Team (Late st Contact Info) Description 01/23/2026 1:00 PM EDT Office Visit [facility] [address] [address] Gurinder Wayne MD [address] [address] Health Maintenance Due Date Last Done Comments Pneumococcal Vaccine: 50+ Years (2 of 2 - PCV) 10/28/2010 10/28/2009 Influenza Vaccine (Season Ended) 2025 07/08/2022, 07/08/2022, 06/17/2019, Additional history exists Pneumococcal Vaccine: Peds (0 to 5 Years) and At-Risk Patients (6 to 49 Years) Discontinued 10/28/2009 Hepatitis B Vaccine Aged Out No longe r eligible based on patient's age to complete this topic Procedures Procedure Name Priority Date/Time Associated Diagnosis Comments ALBUMIN, URINE, RANDOM Routine 01/15/2025 4:17 PM EDT URINALYSIS MICROSCOPIC W/REFLEX TO CULTURE Routine 01/15/2025 4:17 PM EDT CALCIUM Routine 01/15/2025 4:13 PM EDT CREATININE, BLOOD Routine 01/15/2025 4:1 3 PM EDT BUN Routine 01/15/2025 4:13 PM EDT ELECTROLYTE PANEL Routine 01/15/2025 4:1 3 PM EDT EXT RESULT ENTRY Routine 01/15/2025 from Last 3 Months Results * (ABNORMAL) Urinalysis Microscopic w/Reflx to Culture (01/15/2025 4:17 PM EDT) Color Urine Yellow See orde r comments Appearance Urine Cloudy See order comments pH Urine 5.5 5.0 - 9.0 See order comments Glucose Urine Negative Negative mg/dL See order comments Blood, Urine Negative Negative See ord er comments Specific [place] Urine 1.015 1.005 - 1.025 See order comments Protein Urine Negative Neg-Trace mg/dL See order comments Ketones, Urine Negative Negative mg/dL See order comments Nitrite, Urine Negative Negative See o rder comments Leukocyte Esterase Urine Large (3+)(A) Negative See order comments RBC, Urine 3-5(A) 0 - 2 /HPF See orde r comments WBC 6-10 0 - 5 /HPF See order comments Squamous Epithelial, Urine 6-10 0 - 2 /HPF See order comments Bacteria, Urine 1+ None Seen See order comments Hyaline Casts, Urine 0-2 0 - 2 /LPF See order comments Yeast Budding, Urine Present See order comments 01/15/2025 4:17 PM EDT 01/15/2025 4:17 PM EDT Narrative NINI - 01/15/2025 4:54 PM EDT Urine, Clean Catch us Gurinder Wayne MD LAB URINE ORDERABLES Edited Resu lt - Final NINI See order comments [place] [address] * Albumin, urine, random (01/15/2025 4:17 PM EDT) Creatinine, Urine 74.97 mg/dL Se e order comments Urine Microalbumin 14.0 mg/L See order comments Microalbumin/Crea tinine Ratio 18.6 <30 ug/mg cr See order comments Comment: ?Albumin/Creatinine Ratio Reference Ranges: ?Normal: < 30 ug/mg creatinine ?Microalbuminuria: ??30 - 300 ug/mg creatinine Clinical Albuminuria: ??> 300 ug/mg creatinine 01/15/2025 4:17 PM EDT 01/15/2025 4:17 PM EDT us Gurinder Wayne MD LAB URINE ORDERABLES Final Resul t Performing Organization Address [facility] de Phone Number [place] See order comments [place] [address] * Creatinine (01/15/2025 4:13 PM EDT) Creatinine Serum 0.78 0.5 - 1.4 mg/dL See order comments eGFR (Calc) >60 See orde r comments Comment: Chronic Kidney Disease: ??Estimated GFR < 60 mL/min/1.73m2 Severe Kidney Disease: ??Estimated GFR < 15 mL/min/1.73m2 01/15/2025 4:13 PM EDT 01/15/2025 4:13 PM EDT us Gurinder Wayne MD LAB BLOOD ORDERABLES Final Resul t Performing Organization Address [facility] de Phone Number [place] See order comments [place] [address] * BUN (01/15/2025 4:13 PM EDT) BUN 15 9 - 16 mg/dL See order comments 01/15/2025 4:13 PM EDT 01/15/2025 4:13 PM EDT us Gurinder Wayne MD LAB BLOOD ORDERABLES Final Resul t Performing Organization Address [facility] Co de Phone Number [place] See order comments [place] [address] * Calcium (01/15/2025 4:13 PM EDT) Calcium 9.7 8.4 - 10.2 mg/dL See order comments 01/15/2025 4:13 PM EDT 01/15/2025 4:13 PM EDT us Gurinder Wayne MD LAB BLOOD ORDERABLES Final Resul t Performing Organization Address [facility] Co de Phone Number [place] See order comments [place] [address] * (ABNORMAL) Electrolyte panel (01/15/2025 4:13 PM EDT) Sodium 140 135 - 145 mmol/L See order comments Potassium 3.9 3.3 - 5.1 mmol/L See order comments Chloride 110(H) 96 - 108 mmol/L See order comments Bicarbonate (CO2) 21(L) 22 - 29 mmol/L See order comments Anion Gap 13 12 - 20 See order comments 01/15/2025 4:13 PM EDT 01/15/2025 4:13 PM EDT Gurinder Wayne MD LAB BLOOD ORDERABLES Final Resul t Performing Organization Address [facility] Co de Phone Number [place] See order comments [place] [address] * EXT RESULT ENTRY (01/15/2025) Sodium 140 137 - 147 Potassium 3.9 3.4 - 5.5 Carbon Dioxide 21 mmol/L Anion Gap 13 <=30 MMOL/L BUN 15 4 - 21 mg/dL Creatinine 0.78 0.50 - 1.10 mg/dL Calcium 9.7 8.7 - 10.7 mg/dL eGFR Non-Afr Kenyan >60 01/15/2025 Erlin Hutton MD LAB BLOOD ORDERABLES Jayna l Result from Last 3 Months Insurance [facility] Care Teams Autism Motor Specialist Relationship Specialty Start Date End Date Nona Pierce MD [address] [place] [address] PCP - General 10/27/20
== END 2025-03-04 13:02 | disposition home or self-care (01) ==
LOC: HO.HMCC 11:44
PROVIDERS: PCP Internal Medicine; Visit Provider Internal Medicine
DX: Z00.01 Encounter for general adult medical examination with abnormal findings (principal); R73.01 Impaired fasting glucose; E66.9 Obesity, unspecified; Z68.31 Body mass index [BMI] 31.0-31.9, adult; I10 Essential (primary) hypertension; E78.1 Pure hyperglyceridemia; M85.852 Other specified disorders of bone density and structure, left thigh; N39.0 Urinary tract infection, site not specified

== ENCOUNTER 2025-03-04 11:43 | Outpatient (REF) | payer MEDICARE, SELFPAY ==
--- OUTSIDE RECORDS SUMMARY | 2025-03-04 13:05 | XMS_ITS | Clinical Summary ---
Author Organization [facility]. Address [address] [facility] [address] [place] [address] Phone Care Team Providers Care Director Pharmacovigilance Name Role Phone Nona Pierce MD Primary Care Provider +1- [phone] Allergies Active Allergy Reactions Criticality Noted Date [...] [facility] [address] [facility] [address] [place] [address] Gurinder Wayne MD 01/22/2025 1:00 PM EDT Office Visit [facility] [place] [address] [facility] [address] [place] [phone] Casandra Kennedy ARNP Hypertension (Primary Dx); Microalbuminuria 01/17/2025 Documentation Only [facility] [place] [address] [facility] [address] [place] [phone] Loyda Aiken from Last 3 Months Immunizations [...] Office Visit [facility] [address] [address] Gurinder Wayne MD [address] [address] Health Maintenance Due Date Last [...] Negative Negative See ord er comments Specific [place] Urine 1.015 1.005 - 1.025 See order [...] order comments [place] [address] * Albumin, urine, random (01/15/2025 4:17 PM [...] ORDERABLES Final Resul t Performing Organization Address [facility] de Phone Number [place] See order comments [place] [address] * Creatinine (01/15/2025 4:13 PM EDT) Creatinine Serum 0.78 0.5 - 1.4 mg/dL See order comments eGFR (Calc) >60 See orde r comments Comment: Chronic Kidney Disease: ??Estimated GFR < 60 mL/min/1.73m2 Severe Kidney Disease: ??Estimated GFR < 15 mL/min/1.73m2 01/15/2025 4:13 PM EDT 01/15/2025 4:13 PM EDT us Gurinder Wayne MD LAB BLOOD ORDERABLES Final Resul t Performing Organization Address [facility] de Phone Number [place] See order comments [place] [address] * BUN (01/15/2025 4:13 PM EDT) BUN 15 9 - 16 mg/dL See order comments 01/15/2025 4:13 PM EDT 01/15/2025 4:13 PM EDT us Gurinder Wayne MD LAB BLOOD ORDERABLES Final Resul t Performing Organization Address [facility] Co de Phone Number [place] See order comments [place] [address] * Calcium (01/15/2025 4:13 PM EDT) Calcium 9.7 8.4 - 10.2 mg/dL See order comments 01/15/2025 4:13 PM EDT 01/15/2025 4:13 PM EDT us Gurinder Wayne MD LAB BLOOD ORDERABLES Final Resul t Performing Organization Address [facility] Co de Phone Number [place] See order comments [place] [address] * (ABNORMAL) Electrolyte panel (01/15/2025 4:13 PM [...] ORDERABLES Final Resul t Performing Organization Address [facility] Co de Phone Number [place] See order comments [place] [address] * EXT RESULT ENTRY (01/15/2025) Sodium 140 137 - 147 Potassium 3.9 3.4 - 5.5 Carbon Dioxide 21 mmol/L Anion Gap 13 <=30 MMOL/L BUN 15 4 - 21 mg/dL Creatinine 0.78 0.50 - 1.10 mg/dL Calcium 9.7 8.7 - 10.7 mg/dL eGFR Non-Afr [place]ican >60 01/15/2025 Erlin Hutton MD LAB BLOOD ORDERABLES Jayna l Result from Last 3 Months Insurance [facility] Care Teams Director Pharmacovigilance Relationship Specialty Start Date End Date Nona Pierce MD [address] [place] [address] PCP - General 10/27/20
--- OUTSIDE RECORDS SUMMARY | 2025-03-04 13:05 | XMS_ITS | Encounter Summary ---
Author Organization [facility] Address [address] [facility] [address] [place] [address] Phone Care Team Providers Care Pararescue Manager Name Role Phone Nona Pierce MD Primary Care Provider +1- [phone] Reason for Visit * Reason Comments Med Refill Encounter Details Date Type Department Care Team (Late Contact Info) Description 03/04/2025 Refill [facility] [address] [facility] [address] [place] [address] Gurinder Wayne MD [address] [address] Social History Tobacco Use Types [...] Visit [facility] [address] [address] Gurinder Wayne MD [address] [address] documented as of this encounter Visit Diagnoses Not on filedocumented in this encounter Care Teams Pararescue Manager Relationship Specialty Start Date End Date Nona Pierce MD [address] [place] [address] PCP - General 10/27/20 documented as of this encounter
[2025-03-04 16:23] LABS: Estimated Average Glucose 111 mg/dL; Hemoglobin A1C 139.8438 umol/L; Hemoglobin A1c % 5.5 % (<6.0); Total Hemoglobin (HGBA1C) 3852.0848 umol/L
[2025-03-04 16:56] LABS: Alanine Aminotransferase 24 U/L (0-31); Anion Gap 16 (12-20); Aspartate Amino Transferase 29 U/L (5-31); Blood Urea Nitrogen 17 mg/dL (9-16); Carbon Dioxide 22 mmol/L (22-29); Chloride 107 mmol/L (96-108); Cholesterol 212 mg/dL (<200); Estimated Glomerular Filt Rate > 60; Glucose Fasting 98 mg/dL (60-99); HDL Cholesterol 42 mg/dL (>40); LDL Cholesterol Calculated 116 mg/dL (<100); Sodium 141 mmol/L (135-145); Triglycerides 273 mg/dL (<150)
[2025-03-04 17:00] LABS: Vitamin D 25-OH Total 78.2 ng/mL (>30)
== END 2025-03-04 11:44 | disposition home or self-care (01) ==
LOC: HO.HMGCLDS 11:43
PROVIDERS: PCP Internal Medicine; Visit Provider Internal Medicine
DX: Z00.01 Encounter for general adult medical examination with abnormal findings (principal); I10 Essential (primary) hypertension; E66.9 Obesity, unspecified; Z68.31 Body mass index [BMI] 31.0-31.9, adult; E78.1 Pure hyperglyceridemia; R73.01 Impaired fasting glucose; M85.852 Other specified disorders of bone density and structure, left thigh; N39.0 Urinary tract infection, site not specified; Z79.899 Other long term (current) drug therapy
CPT/HCPCS: 36415; 80048; 80061; 82306; 83036; 84450; 84460; 96127; 99212; 99397

== ENCOUNTER 2025-06-06 10:40 | Outpatient (AMB) | payer MEDICARE, SELFPAY ==
--- OUTSIDE RECORDS SUMMARY | 2025-06-06 12:11 | XMS_ITS | Clinical Summary ---
Author Organization Loc[facility] Address [address] [place] [address] Phone Care Team Providers Care Mechanic Welder Name Role Phone Neeta Pierce MD Primary Care Provider Allergies Active Allergy Reactions Criticality Noted Date Comments Amoxicillin Itching,Swelling,Ra sh Low 04/16/2020 Facial swelling, rash Sulfamethoxazole-Trimetho prim 04/16/2020 Clarithromycin 04/16/2020 Nickel 04/16/2020 Medications losartan (COZAAR) 100 MG tablet Take 100 mg by mouth nightly at bedtime. Active cranberry fruit 400 mg Tab Take 400 mg by mouth daily. Active glucosamine-lorraine droitin 500-400 mg Cap Take 1 capsule by mouth 3 (three) times a day. Active ascorbic acid, vitamin C, (VITAMIN C) 500 MG tablet Take 500 mg by mouth daily. Active loratadine (CLARITIN) 10 mg tablet Take 10 mg by mouth daily. Active amLODIPine (NORVASC) 10 MG tablet 0 Active metoprolol succinate (TOPROL-XL) 25 MG 24 hr tablet 0 Active cholecalciferol (VITAMIN D3) 25 MCG (1,000 unit) tablet Take 1,000 Units by mouth daily. Active calcium carbonate 500 mg (200 mg elemental) chewable tablet Take 1 tablet by mouth daily. Active acetaminophen (TYLENOL) 500 MG tablet Take 500 mg by mouth every 6 (six) hours as needed for pain (specific location in comments). Active Medication-Free Text Fiber gummy Active aspirin 81 MG EC tablet Take 1 tablet (81 mg total) by mouth 2 (two) times a day for 21 days. 0 Active oxyCODONE 5 MG immediate release tablet Take 1-2 tab q 4 hours for PRN pain. Partial fill ok 40 tablet 0 Active Additional Information Patient not taking.Reported on 08/05/2021 senna (SENOKOT) 8.6 mg tablet Take 2 tablets by mouth nightly at bedtime. 0 Active Additional Information Patient not taking.Reported on 08/05/2021 oxyCODONE 5 MG immediate release tabletIndication s:Status post total left knee replacement Take 1-2 tablets by mouth every 4-6 hours as needed for pain. Patient may request partial fill. 40 tablet 0 Active Additional Information Patient not taking.Reported on 08/06/2020 docusate sodium (COLACE) 100 MG capsule Take 100 mg by mouth 2 (two) times a day. Active hydroCHLOROthiaz harley (HYDRODIURIL) 12.5 MG tablet Take 12.5 mg by mouth daily. Active zinc sulfate (ZINC-15) 66 mg Tab Take by mouth. Activ e Active Problems Problem Noted Date Diagnosed Date History of total knee arthroplasty, left 020 Primary osteoarthritis of left knee Immunizations No known immunizations Social History Tobacco Use Types Packs/Day Years Used Date Smoking Tobacco: Former Cigarettes 0.3 4 Smokeless Tobacco: Never Comments:as a teenager Alcohol Use Standard Drinks/Week Comments Not Currently 0 (1 standard drink = 0.6 oz pur e alcohol) Education Answer Date Recorded Are you interested in more education? Not on ivonne e 02/11/2023 Are you concerned about learning? Not on file 02/11/2023 No 02/11/2023 No 02/11/2023 Digital Access Answer Date Recorded No 03/12/2023 No 03/12/2023 No 03/12/2023 Reliable internet access at home? Not on file 03/12/2023 Device with a working camera? Not on file Comments No Sex and Gender Information Value Date Recorded Sex Assigned at Female 06/23/2020 10:35 AM EDT Legal Sex Female 10:38 AM EDT Gender Identity Female 06/23/2020 10:35 AM EDT Sexual Orientation Straight 06/23/2020 10 :35 AM EDT Last Filed Vital Signs Vital Sign Reading Time Taken Comments Blood Pressure 148/80 07/23/2020 7:54 AM EDT Pulse 75 07/23/2020 7:54 AM EDT Temperature 36.8 C (98.2 F) 07/23/2020 7:54 AM EDT Respiratory Rate 16 07/23/2020 7:54 AM EDT Oxygen Saturation 94% 07/23/2020 7:54 AM EDT Inhaled Oxygen Concentration - - Weight 87.5 kg (193 lb) 08/05/2021 10:56 AM EDT Height 167.6 cm (5' 6 ) 08/05/2021 10:56 AM EDT Body Mass Index 31.15 08/05/2021 10:56 AM EDT Plan of Treatment Health Maintenance Due Date Last Done Comments Adult Td,Tdap Booster 1945 LIPID PANEL 1945 DEPRESSION SCREENING 1957 SMOKING Hx and SMOKELESS TOBACCO SCREENING 1958 HEPATITIS C SCREENING 1963 OSTEOPOROSIS SCREENING INITI AL (ONE-TIME) 2010 PNEUMOCOCCAL VACCINES (50+ years) (2 of 2 - PPSV23) 08/23/2018 08/23/2017 RSV VACCINE (1 - 1-dose 75+ series) 2020 CREATININE LEVEL 07/23/2021 07/23/2020, 07/22/2020, 06/24/2020 POTASSIUM LEVEL 07/23/2021 07/23/2020, 07/22/2020, 06/24/2020 COVID-19 VACCINE (2 - 2023-2 5 season) 2024 07/07/2021 ZOSTER VACCINES Completed 05/22/2020, 12/27/2019 HEPATITIS A VACCINES Aged Out No long er eligible based on patient's age to complete this topic HIB VACCINES Aged Out No longer eligi ble based on patient's age to complete this topic MENINGOCOCCAL VACCINES (ACWY) Aged Out No longer eligible based on patient's age to complete this topic MENINGOCOCCAL VACCINES (B) Aged Out N o longer eligible based on patient's age to complete this topic Medical Devices Implanted Type Area Scientific Programmer Analyst Device Identifier Shelf Expiration Date Model / Serial / Lot Cement Bone Biomet Standard R 1x40 Us - [id number] Implanted:Qty: 2 on 07/21/2020 by Benito Keller MD at [facility] Left: Knee [employer]ALTER / [employer] 08/16/2024 [id number] / / [id number] Knee Implant 62.5mm Component Femoral Vanguard Titanium Custom - [id number] Implanted:Qty: 1 on 07/21/2020 by Benito Keller MD at [facility] Left: Knee [employer] 06/05/2029 [id number] / / [id number] Tray 75mm Tibial Knee Vanguard Total Titanium Primary Interlock Cemented - [id number] Implanted:Qty: 1 on 07/21/2020 by Benito Keller MD at [facility] Left: Knee [employer] 07/18/2029 [id number] / / [id number] Beam I L 40mm Od 10 Mold Operator Stem Knee Prmary Stablzed Fnned Mpl Ascent Maxm - [id number] Implanted:Qty: 1 on 07/21/2020 by Benito Keller MD at [facility] Left: Knee [employer] 09/08/2029 [id number] / / [id number] Button Patella 34x8.5mm Knee Vanguard Uhmwpe Single Peg Series A Standard - [id number] Implanted:Qty: 1 on 07/21/2020 by Benito Keller MD at [facility] Left: Knee [employer] 01/26/2022 [id number] / / [id number] Knee Bearing 71 [id number] Tibial Vanguard Polyethylene Cruciate Retaining Lipped - [id number] Implanted:Qty: 1 on 07/21/2020 by Benito Keller MD at [facility] Left: Knee [employer] 01/02/2025 [id number] / / [id number] Procedures Procedure Name Priority Date/Time Associated Diagnosis Comments BASIC METABOLIC PANEL Routine 07/23/2020 5:42 AM EDT from Last 3 Months or Most Recently Relevant to Health Maintenance Results * (ABNORMAL) Basic metabolic panel (07/23/2020 5:42 AM EDT) SODIUM 139 133 - 146 mmol/L [facility] CHLORIDE 103 96 - 108 mmol/L [facility] POTASSIUM 3.8 3.3 - 5.1 mmol/L [facility] CO2 26 21 - 35 mmol/L [facility] BUN 18 6 - 19 mg/dL [facility] CREATININE 0.80 0.5 - 1.5 mg/dL [facility] GLUCOSE 110(H) 70 - 99 mg/dL [facility] CALCIUM 9.0 8.4 - 10.3 mg/dL [facility] EGFR 73 >59 mL/min/1.7 3m2 [facility] Comment:Estimated glomerular filtration rate calculated using the CKD-EPI equation. ANION GAP 14 10 - 20 mmol/L [facility] Blood 07/23/2020 5:42 AM EDT 07/23/2020 6:07 AM EDT Benito Keller MD LAB BLOOD ORDERABLES Jayna zimmerman Result Performing Organization Address City/State/[facility] Co de Phone Number [address] [address] from Last 3 Months or Most Recently Relevant to Health Maintenance Insurance MEDICARE PPO BLUE REPLACEMENT [facility] MEDICARE PPO BLUE REPLACEMENT [facility] MEDICARE PPO BLUE REPLACEMENT [facility] MEDICARE PPO BLUE REPLACEMENT [facility] MEDICARE PPO BLUE REPLACEMENT * Guarantor: Blood [employer] Account Type Relation to Patient Date of Phone Billing Address Personal/Family Self [address] [place] [address] [facility] MEDICARE PPO BLUE REPLACEMENT [facility] MEDICARE PPO BLUE REPLACEMENT [facility] MEDICARE PPO BLUE REPLACEMENT * Guarantor: Blood [employer] Account Type Relation to Patient Date of Phone Billing Address Personal/Family Self [address] [place] [address] [place] [address] [place] MEDICARE PPO BLUE REPLACEMENT Advance Directives For more information, please contact: [phone] (9AM - 5PM 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 It is not the complete legal health record.Located Within [facility]
--- OUTSIDE RECORDS SUMMARY | 2025-06-06 12:11 | XMS_ITS | Clinical Summary ---
Author Organization [facility]. Address [address] [facility] [place] [address] Phone Care Team Providers Care Jigsaw Operator Name Role Phone Nona Pierce MD Primary Care Provider +1- [phone] Allergies Active Allergy Reactions Criticality Noted Date [...] MG 24 hr tablet 12/23/2023 Act rosalba losartan (COZAAR) 100 MG tablet TAKE 1 [...] vagina 1 (one) time each day Active furosemide (LASIX) 20 MG tablet TAKE 1 TABLET DAILY 90 tablet 3 03/04/2025 Active Active Problems Problem Noted Date Diagnosed Date Primary osteoarthritis of left knee 11/23/2021 Chronic kidney disease stage 1 11/16/2021 Hypertension 11/16/2021 Hypertensive renal disease 11/16/2021 Microalbuminuria 11/16/2021 History of left total knee replacement 0 Immunizations Immunization Administration Dates Next Due Influenza [...] [facility] [address] [address] Gurinder Wayne MD [address] [address] Health Maintenance Due Date Last Done Comments Pneumococcal Vaccine: 50+ Years (2 of 2 - PCV) 10/28/2010 10/28/2009 Influenza Vaccine (#1) 2025 2, 07/08/2022, 06/17/2019, Additional history exists Pneumococcal Vaccine: Peds (0 to 5 Years) and At-Risk Patients (6 to 49 Years) Discontinued 10/28/2009 Hepatitis B Vaccine Aged Out No longe r eligible based on patient's age to complete this topic Insurance [facility] Care Teams Jigsaw Operator Relationship Specialty Start Date End Date Nona Pierce MD [facility] [place] [address] PCP - General 10/27/20
== END 2025-06-06 13:42 | disposition home or self-care (01) ==
LOC: HO.HMGAL 10:40
PROVIDERS: PCP Internal Medicine; Visit Provider Registered Nurse Emergency
DX: J30.89 Other allergic rhinitis (principal)
CPT/HCPCS: 95117; 95165

== ENCOUNTER 2025-06-28 11:28 | Outpatient (AMB) | payer MEDICARE, SELFPAY ==
--- NOTE | 2025-06-28 11:53 | MHC.OFFVIS ---
Intake Visit Reasons: 6m follow up Intake Note: Patient is present for a 6m follow up Urology Medication:Estradiol Antibiotic Allergy:Sulfa, Amoxicillin,Biaxin Blood Thinner:None pVR:136ml Therapist'S Assistant Required: No Allergies amoxicillin Allergy (Severe, Verified 06/28/25 11:54) rash Sulfa (Sulfonamide Antibiotics) Allergy (Intermediate, Verified 06/28/25 11:54) rash trimethoprim Adverse Reaction (Severe, Verified 06/28/25 11:54) Diarrhea Seasonal Allergies Adverse Reaction (Intermediate, Verified 06/28/25 11:54) Itchy Eyes Biaxin Allergy (Intermediate, Uncoded 03/04/25 12:07) rash nickel? Allergy (Intermediate, Uncoded 03/04/25 12:07) rash Medication List - Last Reconciled 06/28/25 by Kaylie Rojas MD ascorbic acid (vitamin C) 500 mg PO DAILY cephalexin 250 mg PO DAILY 90 days cholecalciferol (vitamin D3) 25 mcg PO DAILY docusate sodium (Colace) 100 mg PO DAILY estradiol (Vagifem) 10 mcg vaginal 2XW furosemide (Lasix) 20 mg PO DAILY glucosamine sulfate (Glucosamine) 500 mg PO DAILY loratadine (Claritin) 10 mg PO DAILY losartan 100 mg PO DAILY metoprolol succinate ER 50 mg PO DAILY nifedipine ER (Procardia XL) 60 mg PO DAILY zinc 50 mg PO DAILY HPI Comments Details: 06/28/25--79-year-old female presenting for follow-up management of pelvic organ prolapse and recurrent urinary tract infections. She utilizes a pessary for conservative management of her cystocele and rectocele and has been successful in managing her symptoms by self-removing and cleaning the device biweekly to every 4 weeks. She is on daily Keflex 250 mg. History of Present Illness The patient is a 79-year-old female presenting for management of pessary use and associated symptoms. The patient reports using a pessary, which occasionally causes soreness upon removal, although it is momentary and resolves quickly. She removes the pessary once a month and leaves it out overnight before reinserting it the next day. The patient has noticed a urinary odor, which she attributes to her daily antibiotic, Keflex. She has not experienced any burning or other symptoms indicative of a urinary tract infection. The patient reports symptoms of neuropathy, including a sensation tad to a knife stabbing in her thigh. She has started taking B vitamins, which have alleviated her symptoms. The patient is on a daily regimen of Keflex and uses Vagifem in conjunction with her pessary, positioning it to the side during application. She also takes a probiotic daily to counteract the effects of the antibiotic. Plan Continue pessary management, daily Keflex, ddqt-iul-rhupxrs D mannose, kssj-xvl-ujyvxyq probiotic. The patient did not give a urine specimen during office visit. Order for urinalysis with reflex. 12/27/24--79-year-old female presenting for follow-up management of pelvic organ prolapse and recurrent urinary tract infections. She utilizes a pessary for conservative management of her cystocele and rectocele and has been successful in managing her symptoms by self-removing and cleaning the device weekly or bi-weekly. Initially, the patient faced discomfort due to frequent coughing, which exacerbated the prolapse; however, she has since become more accustomed to the pessary use. The patient was seen by urogynecology specialist Dr. Costa and explored surgical options but opted to continue with pessary management due to personal preference. Regarding recurrent UTIs, the patient began a prophylactic treatment with Cefalexin, successfully preventing UTIs for over three months. Urinary Symptoms Review - Utilizes a pessary for pelvic organ prolapse management, with self-cleaning every 1-2 weeks - Initially experienced discomfort, but has since managed well with pessary use - No UTI symptoms since starting Keflex prophylaxis Results - Urine analysis: leukocytes present, nitrite negative 08/24/24--follow-up pessary. The patient states that when she coughs or has a bowel movement the pessary moves out of position. I have discussed options of trying a different type of pessary versus surgical management. The patient is interested in surgical management for the vaginal prolapse. Urinalysis nitrite positive. The patient has been noted to have persistent bacteriuria. She was seen by infectious disease and placed on a 6 month course of doxycycline twice a day she has 30 days left to complete the course of therapy. She denies any UTI symptoms. 07/26/24--Here for fu, states feels vaginal bulge. states she was lifting her (disabled). States her passed and was yesterday. Has difficulty with urine stream, currently on doxycycline prescribed by ID due to recurrent UTI's, also compliant on D Mannose. pelvic exam- cath for 150 mL, grade III cystocle, cervix in normal position. Size 3 open ring pessary inserted 03/28/2024--Ashley is here in follow-up due to recurrent UTI. 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 She is allergic to multiple antibiotics, amoxicillin, sulfa, trimethoprim. h/o kidney stone 2004. Last urine culture 02/28/2024 resulted E coli, yung sensitive. She states she has a hemorrhoid and works hard at good hygiene. The patient has had studies including CT imaging, office cystoscopy, urine cytology. She describes UTI symptoms to include now orders urine increased urinary urgency and dysuria. I have discussed that several of her UTIs came back Klebsiella which likely indicates colonization the most recent UTI was E coli. I will increase the Hiprex to b.i.d.. The Flomax has not affected her urinary flow bladder scan PVR was 144 mL which is acceptable. Will discontinue Flomax. I have discussed in addition to cranberry supplement to trial D-mannose [id number]-ukr-cgubbmv. Will refer to Infectious Disease for additional recommendations. 01/12/2024--Ab is a 78-year-old female who has been followed due to recurrent UTIs. She was seen last in the office 06/09/2023 --cystoscopy findings at that time, revealed no suspicious bladder lesions. Since office visit she has called several times and left urine to be sent for culture. She had urine last checked for Microgen analysis and antibiotics were tailored based on results. Today she states she feels that the UTI has cleared up. She is complaining that she does have to push to empty and has a weak stream. Bladder scan PVR 175 mL. I have discussed a trial of alpha-munira Flomax. I will add Hiprex 1 g daily. She already takes vitamin-C 500 mg, cranberry supplements and Vagifem. 06/09/2023?Zoya is here for 3-month follow-up repeat cystoscopy procedure. She denies any signs of urinary tract infections. She was last seen by me on 03/09/2023 for recurrent urinary tract infection. Vagifem 10 mcg was reordered, and urine for bladder FISH discussed to be ordered. Results of urine FISH are not available in the chart. Plan was to repeat cystoscopy in 3 months. Evaluation today--UA-- Leukocytes: 70 berta/uL; blood: 0. Cystoscopy findings revealed within normal limits; no suspicious bladder lesions. 03/09/23-- The patient is here after 2 month follow-up and for cystoscopy procedure. The patient denies urianry tract symptoms. She is adhering to Vagifem therapy and requests for refill. States having diarrhea with the prophylactically prescribed trimethiprim 100mg and needed to stop. She is been evaluated by GI for the findings of liver and pancreatic changes in the most recent CAT scan. Evaluation today: Blood: negative, leukocytes: 3+. CAT scan results reviewed-- 01/05/23-- Kidneys: WNL, no renal calculi visualized. Cystoscopy findings--Small irregular area on the left side of the bladder neck area about 3 mm. Plan to repeat cystoscopy in 2-3 months. Review of imaging CT of the abdomen results from 02/23/2023 ADRENAL GLANDS AND KIDNEYS: Slight enlargement and nodularity of the left adrenal gland. The right adrenal gland is normal. No abnormalities reported in the kidneys. [facility] Medical History Osteopenia of left femoral neck Cholelithiasis Liver mass Recurrent UTI (urinary tract infection) Impaired fasting glucose Hypertriglyceridemia Vaginal dryness, menopausal Obesity Right nephrolithiasis History of basal cell carcinoma Seasonal allergies Essential hypertension Osteoarthritis of left knee Surgical History History of appendectomy S/P correction of deviated nasal septum H/O dilation and curettage History of colonoscopy H/O lithotripsy History of arthroplasty of left knee Family History Father Essential hypertension CVA (cerebral vascular accident) CVD (cardiovascular disease) Mother Essential hypertension Bone cancer Social History Housing: Condominium Alcohol intake: current Alcohol intake frequency: holidays/special occasions only Patient Tobacco Use Status: Former Tobacco user Tobacco use type: Cigarette Years Smoked: 5 yrs e-Cigarette/Vaping Use: Never Used Current occupational status: retired Cognitive needs: No Hearing needs: No Vision needs: Yes Review of Systems Const All systems reviewed & are unremarkable except as noted in HPI and below Reports no additional complaints Eyes Reports no additional complaints ENT Reports no additional complaints Card Reports no additional complaints Resp Reports no additional complaints GI Reports no additional complaints Reports as per HPI Musc Reports no additional complaints Skin/Breast Reports system reviewed and no additional complaints, except as documented Neuro Reports no additional complaints Psych Reports no additional complaints Endo Reports no additional complaints Jeremias/Lymph Reports no additional complaints Aller/Immun Reports no additional complaints Results Reviewed Results Reviewed: Collected: 01/15/25 Status: COMP Req#: [id number] Received: 01/15/25 Source: [facility] Sp Desc: Clean Cat Subm Dr: Javi Wayne MD Ordered: Urine Culture Procedure Result Verified Urine Culture Final 01/17/25 Report Result 10,000 to 50,000 cfu/ml Mixed bacterial kenney characteristic of urogenital contamination. Collected: 09/17/24 Status: COMP Req#: [id number] Received: 09/17/24 Source: [facility] Sp Desc: Clean Cat Subm Dr: Kaylie Rojas MD Ordered: Urine Culture Procedure Result Verified Urine Culture Final 09/19/24 Organism 1 Escherichia coli Quant > 100,000 cfu/mL E coli M.I.C. RX --------- --- Ampicillin >=32 R Cefazolin <=1 S Cefepime <=0.12 S Ceftriaxone <=0.25 S Ciprofloxacin <=0.06 S Gentamicin >=16 R Nitrofurantoin <=16 S Trimethoprim/Sulfamethoxazole <=20 S Collected: 08/28/24 Status: COMP Req#: [id number] Received: 08/28/24 Source: [facility] Sp Desc: Clean Cat Subm Dr: Kaylie Rojas MD Ordered: Urine Culture Procedure Result Verified Urine Culture Final 08/30/24 Organism 1 Escherichia coli Quant > 100,000 cfu/mL E coli M.I.C. RX --------- --- Ampicillin >=32 R Cefazolin <=1 S Cefepime <=0.12 S Ceftriaxone <=0.25 S Ciprofloxacin <=0.06 S Gentamicin >=16 R Nitrofurantoin <=16 S Trimethoprim/Sulfamethoxazole <=20 S Collected: 02/28/24 Status: COMP Req#: [id number] Received: 02/28/24 Source: [facility] Sp Desc: Clean Cat Subm Dr: Kaylie Rojas MD Ordered: Urine Culture Procedure Result Verified Urine Culture Final 03/01/24 Organism 1 Escherichia coli Quant > 100,000 cfu/mL E coli M.I.C. RX --------- --- Ampicillin 4 S Ceftriaxone <=0.25 S Gentamicin <=1 S Levofloxacin <=0.12 S Nitrofurantoin <=16 S Trimethoprim/Sulfamethoxazole <=20 S Collected: 01/12/24 Status: COMP Req#: [id number] Received: 01/12/24 Source: [facility] Sp Desc: Urine balderrama Subm Dr: Kaylie Rojas MD Ordered: Urine Culture Procedure Result Verified Urine Culture Final 01/14/24 Organism 1 Klebsiella pneumoniae Quant > 100,000 cfu/mL Kleb pneum M.I.C. RX --------- --- Ampicillin >=32 R Ceftriaxone <=0.25 S Gentamicin <=1 S Levofloxacin 1 I Nitrofurantoin 64 I Trimethoprim/Sulfamethoxazole <=20 S Date of Service: 02/23/23 EXAMINATION: CT ABDOMEN WITHOUT AND WITH CONTRAST CLINICAL INFORMATION: Abnormal liver CT? COMPARISON: Previous CT of the abdomen and pelvis December 2022 FINDINGS: LUNG BASES: 3 mm peripheral or subpleural left lower lobe nodule.? LIVER, GALLBLADDER, AND BILIARY TREE: There is a large cyst seen in the central liver measuring 5.5 x 6.5 cm. This has small peripheral calcifications. Hounsfield units precontrast measure 18. Hounsfield units postcontrast measure between 21 and 22 with no appreciable enhancement. This is suggestive of a minimally complex cyst. There is a smaller subcentimeter approximately 4 mm lesion high in the dome of the liver axial image 10 series 4. This probably represents a small cyst as well. There is fatty infiltration of the liver. The liver is normal in contour. There is a gallstone in the gallbladder. There is no biliary duct dilatation.? 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 The pancreas is otherwise normal.? SPLEEN: Normal? ADRENAL GLANDS AND KIDNEYS: Slight enlargement and nodularity of the left adrenal gland. The right adrenal gland is normal. BOWEL LOOPS: Duodenal diverticulum as described above. Visualized bowel is otherwise unremarkable.? LYMPH NODES: Normal. VASCULAR: Dilated proximal celiac axis measuring 1.2 cm and moderate stenosis of the celiac axis origin. BONES: Degenerative changes of the spine and mild scoliosis.? IMPRESSION: 5.5 x 6.5 cm minimally complex cyst in the central liver. Probable smaller subcentimeter cyst high in the dome of the liver. Gallstone. 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 Assessment & Plan Assessment & Plan (1) Vaginal prolapse: Comment: Uses pessary Code(s): N81.10 - Cystocele, unspecified Category: Medical (2) Incomplete bladder emptying: Comment: Different organisms in urine but still concern over colonization as well. Code(s): R33.9 - Retention of urine, unspecified Category: Medical (3) Recurrent UTI (urinary tract infection): Code(s): N39.0 - Urinary tract infection, site not specified Category: Medical (4) Vaginal atrophy: Code(s): N95.2 - Postmenopausal atrophic vaginitis Category: Medical Plan Continue pessary management, daily Keflex, lcek-cjd-lgixrup D mannose, gxqr-jzb-mhqnlcm probiotic. The patient did not give a urine specimen during office visit. Order for urinalysis with reflex. Orders: Orders AMB Post Void Residual by ultrasound Today N39.0 - Urinary tract infection, site not specified, R33.9 - Retention of urine, unspecified Medications: Refilled cephalexin 250 mg PO DAILY 90 caps 3RF 90 days estradiol (Vagifem) use vaginally Mon/Thurs 10 mcg vaginal 2XW 24 tabs 3RF Patient Instructions: The patient had an opportunity to ask questions regarding treatment plan. The patient expressed understanding and agreement with the above treatment plan. The patient is aware they should contact our office by phone for worsening of their current condition or the appearance of new symptoms. Compliance is encouraged with any medications and followup testing that is ordered. It is a privilege to be allowed the opportunity to participate in the urologic care of your patient. If you have any questions or concerns regarding treatment for the above conditions please do not hesitate to contact me. The office telephone contact is [phone]. This note is constructed in part using voice recognition software. While every effort has been made to ensure accuracy neck band setter errors may have been included. Yours sincerely, Kaylie Rojas MD Scribe Plan - Not visible on output: Patient was informed and verbally consented to the use of an ambient scribe for clinic note documentation during this visit. Coding Level of Care Code Est Pt Level 4 (99333) Complex EM visit Add On G2211 Diagnoses Vaginal prolapse N81.10 Incomplete bladder emptying R33.9 Recurrent UTI (urinary tract infection) N39.0 Vaginal atrophy N95.2
== END 2025-06-28 12:28 | disposition home or self-care (01) ==
LOC: HO.HUSH 11:29
PROVIDERS: PCP Internal Medicine; Visit Provider Urology
DX: N81.10 Cystocele, unspecified (principal); R33.9 Retention of urine, unspecified; N39.0 Urinary tract infection, site not specified; N95.2 Postmenopausal atrophic vaginitis
CPT/HCPCS: 99214; G2211

== ENCOUNTER → 2025-06-28 11:28 | Outpatient (BNVA) | payer MEDICARE, SELFPAY | PROVIDERS: PCP Internal Medicine; Visit Provider Urology | DX: N95.2 Postmenopausal atrophic vaginitis (principal); N39.0 Urinary tract infection, site not specified; R33.9 Retention of urine, unspecified; N81.10 Cystocele, unspecified | CPT/HCPCS: 99212 ==

== ENCOUNTER 2025-07-02 14:17 | Outpatient (REF) | payer MEDICARE, SELFPAY ==
[2025-07-02 16:29] LABS: Appearance Urine Cloudy; Glucose Urine UA Negative (Negative); PH 5.0 (5.0-9.0); Specific Gravity - Urine 1.020 (1.005-1.025); UMIC TRIGGER UA YES
--- OUTSIDE RECORDS SUMMARY | 2025-07-02 18:06 | XMS_ITS | Encounter Summary ---
Author Organization [facility] Address [address] [place] [phone] Phone Care Team Providers Care Overseer Kosher Kitchen Name Role Phone Neeta Pierce MD Primary Care Provider Encounter Details Date Type Department Care Team (Late st Contact Info) Description 07/21/2020 Procedure Pass OR Admitting Dept - Virtual Department [address] [place] [address] Social History Tobacco Use Types Packs/Day Years Used Date Smoking Tobacco: Former Cigarettes 0.3 4 Smokeless Tobacco: Never Comments:as a teenager Alcohol Use Standard Drinks/Week Comments Not Currently 0 (1 standard drink = 0.6 oz pur e alcohol) Comments No Sex and Gender Information Value Date Recorded Sex Assigned at Female 06/23/2020 10:35 AM EDT Legal Sex Female 10:38 AM EDT Gender Identity Female 06/23/2020 10:35 AM EDT Sexual Orientation Straight 06/23/2020 10 :35 AM EDT documented as of this encounter Plan of Treatment Not on file documented as of this encounter Visit Diagnoses Not on filedocumented in this encounter Care Teams Overseer Kosher Kitchen Relationship Specialty Start Date End Date Neeta Pierce MD [address] [place] [address] PCP - General Internal Medicine 03/31/20 documented as of this encounter Additional Source Comments The information contained in this document represents components of the legal health record. It is not the complete legal health record.[facility]
--- OUTSIDE RECORDS SUMMARY | 2025-07-02 18:06 | XMS_ITS | Clinical Summary ---
Author Organization [facility]. Address [address] [facility] [address] [place] [address] Phone Care Team Providers Care Review Trainer Name Role Phone Nona Pierce MD Primary Care Provider +1- [phone] Allergies Active Allergy Reactions Criticality Noted Date [...] [facility] [address] [address] Gurinder Wayne MD [address] [address] Health Maintenance Due Date Last Done Comments Pneumococcal Vaccine: 50+ Years (2 of 2 - PCV) 10/28/2010 10/28/2009 Influenza Vaccine (#1) 2025 2, 07/08/2022, 06/17/2019, Additional history exists Pneumococcal Vaccine: Peds (0 to 5 Years) and At-Risk Patients (6 to 49 Years) Discontinued 10/28/2009 Hepatitis B Vaccine Aged Out No longe r eligible based on patient's age to complete this topic Insurance [facility] Care Teams Review Trainer Relationship Specialty Start Date End Date Nona Pierce MD [facility] [place] [address] PCP - General 10/27/20
== END 2025-07-02 14:18 | disposition home or self-care (01) ==
LOC: HO.HMGCLDS 14:17
PROVIDERS: PCP Internal Medicine; Visit Provider Urology
DX: N39.0 Urinary tract infection, site not specified (principal)
CPT/HCPCS: 81001; 87086; 87088; 87186

== ENCOUNTER 2025-07-03 13:29 | Outpatient (AMB) | payer MEDICARE, SELFPAY ==
--- OUTSIDE RECORDS SUMMARY | 2025-07-03 17:19 | XMS_ITS | Clinical Summary ---
Author Organization [facility] Address [address] [facility] [address] [place] [address] Phone Care Team Providers Care Risk Control Consultant Name Role Phone Nona Pierce MD Primary Care Provider +1- [phone] Allergies Active Allergy Reactions Criticality Noted Date [...] [facility] [address] [address] Gurinder Wayne MD [address] [address] Health Maintenance Due Date Last Done Comments Pneumococcal Vaccine: 50+ Years (2 of 2 - PCV) 10/28/2010 10/28/2009 Influenza Vaccine (#1) 2025 2, 07/08/2022, 06/17/2019, Additional history exists Pneumococcal Vaccine: Peds (0 to 5 Years) and At-Risk Patients (6 to 49 Years) Discontinued 10/28/2009 Hepatitis B Vaccine Aged Out No longe r eligible based on patient's age to complete this topic Insurance [facility] Care Teams Risk Control Consultant Relationship Specialty Start Date End Date Nona Pierce MD [place] [address] PCP - General 10/27/20
--- OUTSIDE RECORDS SUMMARY | 2025-07-03 17:19 | XMS_ITS | Encounter Summary ---
Author Organization [facility] Address [address] [place] [address] Phone Care Team Providers Care Lie Detector Operator Name Role Phone Neeta Pierce MD Primary Care Provider Encounter Details Date Type Department Care Team (Late st Contact Info) Description 07/21/2020 Procedure Pass OR Admitting Dept - Virtual Department [address] [place] [address] Social History Tobacco Use Types Packs/Day Years [...] on filedocumented in this encounter Care Teams Lie Detector Operator Relationship Specialty Start Date End Date Neeta Pierce MD [address] [place] [address] PCP - General Internal Medicine 03/31/20 documented as of this encounter Additional Source Comments The information contained in this document represents components of the legal health record. It is not the complete legal health record.[facility]
--- OUTSIDE RECORDS SUMMARY | 2025-07-03 17:19 | XMS_ITS | Clinical Summary ---
Author Organization [facility] Address [address] [place] [address] Phone Care Team Providers Care Procurement Officer Name Role Phone Neeta Pierce MD Primary [...] 1958 HEPATITIS C SCREENING 1963 OSTEOPOROSIS SCREENING INITIAL (ONE-TIME) 2010 PNEUMOCOCCAL VACCINES (50+ years) (2 of 2 - PPSV23) 08/23/2018 08/23/2017 RSV VACCINE (1 - 1-dose 75+ series) 2020 CREATININE LEVEL 07/23/2021 07/23/2020, 03/2020, 06/24/2020 POTASSIUM LEVEL 07/23/2021 07/23/2020, 10/0 03/2020, 06/24/2020 INFLUENZA VACCINE (#1) 2025 0, 07/25/2019, 07/28/2018, Additional history exists COVID-19 VACCINE ( season) 2025 07/07/2021 ZOSTER VACCINES Completed 05/22/2020, 12/27/2019 HEPATITIS [...] this topic Medical Devices Implanted Type Area Sports Team Manager Device Identifier Shelf Expiration Date Model / Serial / Lot Cement Bone Biomet Standard R 1x40 Us - [id number] Implanted:Qty: 2 on 07/21/2020 by Benito Keller MD at [facility] Left: Knee WALTER / [employer]ST[employer] SQUIBB 08/16/2024 [id number] / / [id number] Knee Implant 62.5mm Component Femoral Vanguard Titanium Custom - [id number] Implanted:Qty: 1 on 07/21/2020 by Benito Keller MD at [facility] Left: Knee [employer] 06/05/2029 [id number] / / [id number] Tray 75mm Tibial Knee Vanguard Total Titanium Primary Interlock Cemented - [id number] Implanted:Qty: 1 on 07/21/2020 by Benito Keller MD at [facility] Left: Knee [employer] 07/18/2029 [id number] / / [id number] Beam I L 40mm Od 10 Refinery Operator Visbreaking Stem Knee Prmary Stablzed Fnned Mpl Ascent Maxm - [id number] Implanted:Qty: 1 on 07/21/2020 by Benito Keller MD at [facility] Left: Knee [employer] 09/08/2029 [id number] / / [id number] Button Patella 34x8.5mm Knee Vanguard Uhmwpe Single Peg Series A Standard - [id number] Implanted:Qty: 1 on 07/21/2020 by Benito Keller MD at [facility] Left: Knee [employer] 01/26/2022 [id number] / / [id number] Knee Bearing 71 [id number] Tibial Vanguard Polyethylene Cruciate Retaining Lipped - [id number] Implanted:Qty: 1 on 07/21/2020 by Benito Keller MD at [facility] Left: Knee [employer] 01/02/2025 [id number] / / [id number] Procedures Procedure Name Priority Date/Time Associated Diagnosis Comments BASIC METABOLIC PANEL Routine 07/23/2020 5:42 AM EDT from Last 3 Months or Most Recently Relevant to Health Maintenance Results * (ABNORMAL) Basic metabolic panel (07/23/2020 5:42 AM EDT) SODIUM 139 133 - 146 mmol/L [facility] CHLORIDE 103 96 - 108 mmol/L [facility] POTASSIUM 3.8 3.3 - 5.1 mmol/L [facility] CO2 26 21 - 35 mmol/L [facility] BUN 18 6 - 19 mg/dL [facility] CREATININE 0.80 0.5 - 1.5 mg/dL [facility] GLUCOSE 110(H) 70 - 99 mg/dL [facility] CALCIUM 9.0 8.4 - 10.3 mg/dL [facility] EGFR 73 >59 mL/min/1.7 3m2 [facility] Comment:Estimated glomerular filtration rate calculated using the CKD-EPI equation. ANION GAP 14 10 - 20 mmol/L [facility] Blood 07/23/2020 5:42 AM EDT 07/23/2020 6:07 AM EDT Benito Keller MD LAB BLOOD ORDERABLES Jayna zimmerman Result [address] [address] from Last 3 Months or Most Recently Relevant to Health Maintenance [place] [address] [place] [address] MEDICARE PPO BLUE REPLACEMENT [facility] MEDICARE PPO BLUE REPLACEMENT [facility] MEDICARE PPO BLUE REPLACEMENT [facility] MEDICARE PPO BLUE REPLACEMENT [facility] MEDICARE PPO BLUE REPLACEMENT [facility] MEDICARE PPO BLUE REPLACEMENT [facility] MEDICARE PPO BLUE REPLACEMENT [facility] [place] [id number] [place]AC[place] Advance Directives For more information, please contact: [phone] (9AM - 5PM [facility], Tuesday-Tuesday) Documents on File Type Date Recorded Patient Brown Sourer Expl anation Healthcare Proxy 07/24/2020 8:26 AM * Full Code (Latest Code Status on File) Date Activated Date Inactivated Comments 07/21/2020 10:57 AM Question Answer Comments Code Status Confirmed With: Patient Code Status Communicated To: Inpatient Attending Care Teams Procurement Officer Relationship Specialty Start Date End Date Neeta Pierce MD [address] [place] [address] PCP - General Internal Medicine 03/31/20 Additional Source Comments The information contained in this document represents components of the legal health record. It is not the complete legal health record.[facility]
== END 2025-07-03 13:30 | disposition home or self-care (01) ==
LOC: HO.HMGAL 13:29
PROVIDERS: PCP Internal Medicine; Visit Provider Registered Nurse Emergency
DX: J30.89 Other allergic rhinitis (principal)
CPT/HCPCS: 95117; 95165

== ENCOUNTER 2025-07-31 14:18 | Outpatient (AMB) | payer MEDICARE, SELFPAY ==
--- OUTSIDE RECORDS SUMMARY | 2025-07-31 18:03 | XMS_ITS | Clinical Summary ---
Author Organization [facility] Address [address] [place] [address] Phone Care Team Providers Care Shipping Room Supervisor Name Role Phone Neeta Pierce MD Primary [...] this topic Medical Devices Implanted Type Area Automobile Damage Field Appraiser Device Identifier Shelf Expiration Date Model / Serial / Lot Cement Bone Biomet Standard R 1x40 Us - [id number] Implanted:Qty: 2 on 07/21/2020 by Benito Keller MD at [facility] Left: Knee [employer] 08/16/2024 [id number] / / [id number] Knee Implant 62.5mm Component Femoral Vanguard Titanium Custom - [id number] Implanted:Qty: 1 on 07/21/2020 by Benito Keller MD at [facility] Left: Knee [employer] 06/05/2029 [id number] / / [id number] Tray 75mm Tibial Knee Vanguard Total Titanium Primary Interlock Cemented - [id number] Implanted:Qty: 1 on 07/21/2020 by Benito Keller MD at [facility] Left: Knee [employer] 07/18/2029 [id number] / / [id number] Beam I L 40mm Od 10 Brassiere Cup Mold Cutter Stem Knee Prmary Stablzed Fnned Mpl Ascent Maxm - [id number] Implanted:Qty: 1 on 07/21/2020 by Benito Keller MD at [facility] Left: Knee [employer] 09/08/2029 [id number] / / [id number] Button Patella 34x8.5mm Knee Vanguard Uhmwpe Single Peg Series A Standard - [id number] Implanted:Qty: 1 on 07/21/2020 by Benito Keller MD at [facility] Left: Knee [employer] 01/26/2022 [id number] / / [id number] Knee Bearing 71 [id number] Tibial Vanguard Polyethylene Cruciate Retaining Lipped - [id number] Implanted:Qty: 1 on 07/21/2020 by Benito Keller MD at [facility] Left: Knee [employer] 01/02/2025 [id number] / / [id number] Procedures Procedure Name Priority Date/Time Associated Diagnosis Comments BASIC METABOLIC PANEL Routine 07/23/2020 5:42 AM EDT from Last 3 Months or Most Recently Relevant to Health Maintenance Results * (ABNORMAL) Basic metabolic panel (07/23/2020 5:42 AM EDT) SODIUM 139 133 - 146 mmol/L [facility] CHLORIDE 103 96 - 108 mmol/L [facility] POTASSIUM 3.8 3.3 - 5.1 mmol/L [facility] CO2 26 21 - 35 mmol/L [facility] BUN 18 6 - 19 mg/dL [facility] CREATININE 0.80 0.5 - 1.5 mg/dL [facility] GLUCOSE 110(H) 70 - 99 mg/dL [facility] CALCIUM 9.0 8.4 - 10.3 mg/dL [facility] EGFR 73 >59 mL/min/1.7 3m2 [facility] Comment:Estimated glomerular filtration rate calculated using the CKD-EPI equation. ANION GAP 14 10 - 20 mmol/L [facility] Blood 07/23/2020 5:42 AM EDT 07/23/2020 6:07 AM EDT Benito Keller MD LAB BLOOD ORDERABLES Jayna zimmerman Result [address] [address] from Last 3 Months or Most Recently Relevant to Health Maintenance Insurance [address] [address] MEDICARE PPO BLUE REPLACEMENT [facility] MEDICARE PPO BLUE REPLACEMENT [facility] MED[facility] PPO BLUE REPLACEMENT [facility] PPO BLUE REPLACEMENT [facility]PO BLUE REPLACEMENT [facility] PPO BLUE REPLACEMENT [facility] MED[facility] PPO BLUE REPLACEMENT [facility] [place] [address] [place] BLUE REPLACEMENT Advance Directives For more information, please contact: [phone] (9AM - 5PM [facility], Tuesday-Tuesday) Documents on File Type Date Recorded Patient Claim Agent Expl anation Healthcare Proxy 07/24/2020 8:26 AM * Full Code (Latest Code Status on File) Date Activated Date Inactivated Comments 07/21/2020 10:57 AM Question Answer Comments Code Status Confirmed With: Patient Code Status Communicated To: Inpatient Attending Care Teams Shipping Room Supervisor Relationship Specialty Start Date End Date Neeta Pierce MD [address] [place] [address] PCP - General Internal Medicine 03/31/20 Additional Source Comments The information contained in this document represents components of the legal health record. It is not the complete legal health record.[facility]
--- OUTSIDE RECORDS SUMMARY | 2025-07-31 18:03 | XMS_ITS | Encounter Summary ---
Author Organization [facility] Address [address] [place] [address] Phone Care Team Providers Care Daycare Assistant Name Role Phone Neeta Pierce MD Primary Care Provider Encounter Details Date Type Department Care Team (Late st Contact Info) Description 07/21/2020 Procedure Pass OR Admitting Dept - Virtual Department [address] [place] [address] Social History Tobacco Use Types Packs/Day Years [...] on filedocumented in this encounter Care Teams Daycare Assistant Relationship Specialty Start Date End Date Neeta Pierce MD [address] [place] [address] PCP - General Internal Medicine 03/31/20 documented as of this encounter Additional Source Comments The information contained in this document represents components of the legal health record. It is not the complete legal health record.[facility]
== END 2025-07-31 14:19 | disposition home or self-care (01) ==
LOC: HO.HMGAL 14:18
PROVIDERS: PCP Internal Medicine; Visit Provider Registered Nurse Emergency
DX: J30.89 Other allergic rhinitis (principal)
CPT/HCPCS: 95117; 95165

== ENCOUNTER 2025-08-28 11:35 | Outpatient (REF) | payer MEDICARE, SELFPAY ==
[2025-08-28 13:30] LABS: MANUAL DIFF FLAG NO
[2025-08-28 13:45] LABS: Hematocrit 45.7 % (37.0-47.0); Hemoglobin 14.5 g/dl (12.0-16.0); Imm Gran Abs Auto 0.04 X10*3/uL (0.00-0.03); Imm Gran Pct Auto 0.4 % (0.0-0.4); Lymphocytes Absolute Auto 1.8 X10*3/uL (1.2-4.9); Mean Corpuscular HGB Conc 31.7 g/dl (31.0-35.0); Mean Corpuscular Hemoglobin 29.2 pg (27.0-33.0); Mean Corpuscular Volume 92.1 fL (80.0-98.0); NRBC Abs Auto 0.000 X10*3/uL (0.0-0.012); NRBC Pct Auto 0.0 /100WBC (0.0-0.2); Platelet Count 299 X10*3/uL (160-400); Red Blood Count 4.96 X10*6/uL (4.20-5.50); White Blood Count 9.0 X10*3/uL (4.8-10.8)
[2025-08-28 14:20] LABS: Alanine Aminotransferase 16 U/L (0-31); Anion Gap 15 (12-20); Aspartate Amino Transferase 21 U/L (5-31); Blood Urea Nitrogen 21 mg/dL (9-16); Calcium 9.7 mg/dL (8.4-10.2); Carbon Dioxide 21 mmol/L (22-29); Chloride 109 mmol/L (96-108); Cholesterol 201 mg/dL (<200); Estimated Glomerular Filt Rate 59; HDL Cholesterol 39 mg/dL (>40); Potassium 4.4 mmol/L (3.3-5.1); Sodium 141 mmol/L (135-145); Triglycerides 287 mg/dL (<150)
--- OUTSIDE RECORDS SUMMARY | 2025-08-28 14:26 | XMS_ITS | Encounter Summary ---
Author Organization [facility] Address [address] [place] [address] Phone Care Team Providers Care Stock Supervisor Name Role Phone Neeta Pierce MD Primary Care Provider Encounter Details Date Type Department Care Team (Late st Contact Info) Description 07/21/2020 Procedure Pass [place] Admitting Dept - Virtual Department [address] [place] [address] Social History Tobacco Use Types Packs/Day Years [...] on filedocumented in this encounter Care Teams Stock Supervisor Relationship Specialty Start Date End Date Neeta Pierce MD [address] [place] [address] PCP - General Internal Medicine 03/31/20 documented as of this encounter Additional Source Comments The information contained in this document represents components of the legal health record. It is not the complete legal health record.[facility]
--- OUTSIDE RECORDS SUMMARY | 2025-08-28 14:26 | XMS_ITS | Clinical Summary ---
Author Organization [facility] Address [address] [address] Phone Care Team Providers Care Candle Molder Machine Name Role Phone Nona Pierce MD Primary Care Provider +1- [phone] Allergies Active Allergy Reactions Criticality Noted Date [...] 50 MG 24 hr tablet 4 Active NIFEdipine XL (PROCARDIA XL) 60 MG 24 hr tablet TAKE 1 TABLET ONCE DAILY. DO NOT CRUSH, CHEW, OR SPLIT. 90 tablet 3 5 Active cephalexin (KEFLEX) 250 MG capsuleIndicati ons:UTI prophylaxis Take 250 mg by mouth 1 (one) time each day Active Estradiol (Yuvafem) 10 MCG tabletIndicatio ns:Atrophic Vaginitis Insert 10 mcg into the vagina 1 (one) time each day Active furosemide (LASIX) 20 MG tablet TAKE 1 TABLET DAILY 90 tablet 3 5 Active losartan (COZAAR) 100 MG tablet TAKE 1 TABLET DAILY 90 tablet 3 5 Active losartan (COZAAR) 100 MG tablet TAKE 1 TABLET DAILY 90 tablet 3 4 025 Discontinued Active Problems Problem Noted Date Diagnosed Date Primary osteoarthritis of left knee 11/23/2021 Chronic kidney disease stage 1 11/16/2021 Hypertension 11/16/2021 Hypertensive renal disease 11/16/2021 Microalbuminuria 11/16/2021 History of left total knee replacement 0 Encounters Date Type Department Care Team Description 08/24/2025 Refill [facility] [address] [place] [address] Gurinder Wayne MD from Last 3 Months Immunizations Immunization Administration Dates Next Due Influenza Split High Dose Preservative Free IM 0 06/17/2019,07/17/2014 Influenza, Unspecified 07/08/2022 Pneumococcal Polysaccharide 10/28/2009 Family History Medical History Relation Comments Gout Father Hypertension Father Cancer Mother Hypertension Mother Hypertension Sibling brother & sister Relation Status Comments Father Mother Sibling Social History Tobacco Use Types Packs/Day Years Used Date Smoking Tobacco: Former Cigarettes 6 0 10/17/1959 - 10/17/1965 Smokeless Tobacco: Never [...] Visit [facility] [address] [id number] Gurinder Wayne MD [address] [address] Health Maintenance Due Date Last [...] patient's age to complete this topic Insurance [facility] Care Teams Candle Molder Machine Relationship Specialty Start Date End Date Nona Pierce MD PCP - General 10/27/20
--- OUTSIDE RECORDS SUMMARY | 2025-08-28 14:26 | XMS_ITS | Clinical Summary ---
Author Organization [facility] Address [address] [place] [address] Phone Care Team Providers Care Iuss Acoustic Analyst Name Role Phone Neeta Pierce MD Primary [...] VACCINES (50+ years) (2 of 2 - PCV20 or PCV21) 08/23/2018 08/23/2017 RSV VACCINE (1 - 1-dose 75+ series) 2020 CREATININE LEVEL 07/23/2021 07/23/2020, 03/2020, 06/24/2020 POTASSIUM LEVEL 07/23/2021 07/23/2020, 10/0 03/2020, 06/24/2020 INFLUENZA VACCINE (#1) 2025 0, 07/25/2019, 07/28/2018, Additional history exists COVID-19 VACCINE (2 - season) 2025 07/07/2021 ZOSTER VACCINES Completed 05/22/2020, 12/27/2019 HEPATITIS A VACCINES Aged Out No long er eligible based on patient's age to complete this topic HIB VACCINES Aged Out No longer eligi ble based on patient's age to complete this topic IPV VACCINES Aged Out No longer eligi ble based on patient's age to complete this topic MENINGOCOCCAL VACCINES (ACWY) Aged Out No longer eligible based on patient's age to complete this topic MENINGOCOCCAL VACCINES (B) Aged Out N o longer eligible based on patient's age to complete this topic Medical Devices Implanted Type Area Environmental Services Director Device Identifier Shelf Expiration Date Model / Serial / Lot Cement Bone Biomet Standard R 1x40 Us - [id number] Implanted:Qty: 2 on 07/21/2020 by Benito Keller MD at [facility] Left: Knee [employer] / [employer] S[employer] 08/16/2024 [id number] / / [id number] Knee Implant 62.5mm Component Femoral Vanguard Titanium Custom - [id number] Implanted:Qty: 1 on 07/21/2020 by Benito Keller MD at [facility] Left: Knee [employer] 06/05/2029 [id number] / / [id number] Tray 75mm Tibial Knee Vanguard Total Titanium Primary Interlock Cemented - [id number] Implanted:Qty: 1 on 07/21/2020 by Benito Keller MD at [facility] Left: Knee [employer] 07/18/2029 [id number] / / [id number] Beam I L 40mm Od 10 Men'S Leather Dress Belt Maker Stem Knee Prmary Stablzed Fnned Mpl Ascent Maxm - [id number] Implanted:Qty: 1 on 07/21/2020 by Benito Keller MD at [facility] Left: Knee [employer] 09/08/2029 [id number] / / [id number] Button Patella 34x8.5mm Knee Vanguard Uhmwpe Single Peg Series A Standard - [id number] Implanted:Qty: 1 on 07/21/2020 by Benito Keller MD at [facility] Left: Knee [employer] 01/26/2022 [id number] / / [id number] Knee Bearing 71 [id number] Tibial Vanguard Polyethylene Cruciate Retaining Lipped - [id number] Implanted:Qty: 1 on 07/21/2020 by Benito Keller MD at [facility] Left: Knee [employer] 01/02/2025 [id number] / / [id number] Procedures Procedure Name Priority Date/Time Associated Diagnosis Comments BASIC METABOLIC PANEL (BMP) Routine 07/23/2020 5:42 AM EDT from Last 3 Months or Most Recently Relevant to Health Maintenance Results * (ABNORMAL) Basic metabolic panel (07/23/2020 5:42 AM EDT) SODIUM 139 133 - 146 mmol/L [facility] CHLORIDE 103 96 - 108 mmol/L [facility] POTASSIUM 3.8 3.3 - 5.1 mmol/L [facility] CO2 26 21 - 35 mmol/L [facility] BUN 18 6 - 19 mg/dL [facility] CREATININE 0.80 0.5 - 1.5 mg/dL [facility] GLUCOSE 110(H) 70 - 99 mg/dL [facility] CALCIUM 9.0 8.4 - 10.3 mg/dL [facility] EGFR 73 >59 mL/min/1.7 3m2 [facility] Comment:Estimated glomerular filtration rate calculated using the CKD-EPI equation. ANION GAP 14 10 - 20 mmol/L [facility] Blood 07/23/2020 5:42 AM EDT 07/23/2020 6:07 AM EDT Benito Keller MD LAB BLOOD BKR ORDERABLES Final Result [address] [address] from Last 3 Months or Most Recently Relevant to Health Maintenance Insurance [place] BLUE REPLACEMENT [facility] MEDICARE PPO BLUE REPLACEMENT [facility] MEDICARE PPO BLUE REPLACEMENT [facility] MEDICARE PPO BLUE REPLACEMENT [facility] MEDICARE PPO BLUE REPLACEMENT * Guarantor: Blood, Zoya Account Type Relation to Patient Date of Phone Billing Address Personal/Family Self [address] [place] [address] MEDICARE PPO BLUE REPLACEMENT [facility] MEDICARE PPO BLUE REPLACEMENT * Guarantor: Blood Zoya Account Type Relation to Patient Date of Phone Billing Address Personal/Family Self [address] [place] [address] [facility] MEDICARE PPO BLUE REPLACEMENT Member Subscriber Plan / Payer ( fective 2010-Present) Name:Car Zoya Relation to Subscriber:Self Name:Blood, Zoya Payer ID:[id number] (NAIC) Type:Medicare Address: [address] [place] [address] [place] BLUE REPLACEMENT Advance Directives For more information, please contact: [phone] (9AM - 5PM [facility], Tuesday-Tuesday) Documents on File Type Date Recorded Patient Grain Drier Operator Expl anation Healthcare Proxy 07/24/2020 8:26 AM * Full Code (Latest Code Status on File) Date Activated Date Inactivated Comments 07/21/2020 10:57 AM Question Answer Comments Code Status Confirmed With: Patient Code Status Communicated To: Inpatient Attending Care Teams Iuss Acoustic Analyst Relationship Specialty Start Date End Date Neeta Pierce MD [address] [place] [address] PCP - General Internal Medicine 03/31/20 Additional Source Comments The information contained in this document represents components of the legal health record. It is not the complete legal health record.[facility]
--- OUTSIDE RECORDS SUMMARY | 2025-08-28 14:26 | XMS_ITS | Encounter Summary ---
Author Organization [facility] Address [address] [facility] [address] [place] [address] Phone Care Team Providers Care Abstract Maker Name Role Phone Nona Pierce MD Primary Care Provider +1- [phone] Reason for Visit * Reason Comments Med Refill Encounter Details Date Type Department Care Team (Late st Contact Info) Description 08/24/2025 Refill [facility] [address] [facility] [address] [place] [address] Gruinder Wayne MD [address] [address] Social History Tobacco Use Types [...] Visit [facility] [address] [address] Gurinder Wayne MD [address] [facility] [address] [place] [address] documented as of this encounter Visit Diagnoses Not on filedocumented in this encounter Care Teams Abstract Maker Relationship Specialty Start Date End Date Nona Pierce MD PCP - General 10/27/20 documented as of this encounter
== END 2025-08-28 11:36 | disposition home or self-care (01) ==
LOC: HO.HMGCLDS 11:35
PROVIDERS: PCP Internal Medicine; Visit Provider Internal Medicine
DX: I10 Essential (primary) hypertension (principal); E78.1 Pure hyperglyceridemia; R73.01 Impaired fasting glucose; M85.852 Other specified disorders of bone density and structure, left thigh; E66.9 Obesity, unspecified
CPT/HCPCS: 36415; 80048; 80061; 82306; 84450; 84460; 85025

== ENCOUNTER 2025-08-28 13:17 | Outpatient (AMB) | payer MEDICARE, SELFPAY | END 2025-08-28 13:17 | disposition home or self-care (01) | LOC: HO.HMGAL 13:17 | PROVIDERS: PCP Internal Medicine; Visit Provider Registered Nurse Emergency | DX: J30.89 Other allergic rhinitis (principal) | CPT/HCPCS: 95117; 95165 ==

== ENCOUNTER 2025-09-03 10:40 | Outpatient (AMB) | payer MEDICARE, SELFPAY ==
[2025-09-03 11:51] VITALS: BP 138/70; PULSE 69; RESP 16; TEMP 36.6; O2SAT 95; BMI 31.0
--- NOTE | 2025-09-03 11:51 | A.OFFPC_ITS ---
Vital Signs 09/03/25 11:51 Height 5 ft 6 in Weight 192 lb BMI 31.0 BP 138/70 Blood Pressure Location Rt brachial Position Sitting Respiration 16 Pulse 69 Pulse Source Pulse Oximeter Temp 97.9 F Temp Source Oral Pulse Oximetry (%) 95 Oxygen Delivery Method Room Air Intake Visit Reasons: 6m follow up Intake Note: Pt is here today for her 6mo. f/u Physical Science Professor Required: No Allergies amoxicillin Allergy (Severe, Verified 09/03/25 12:14) rash Sulfa (Sulfonamide Antibiotics) Allergy (Intermediate, Verified 09/03/25 12:14) rash trimethoprim Adverse Reaction (Severe, Verified 09/03/25 12:14) Diarrhea Seasonal Allergies Adverse Reaction (Intermediate, Verified 09/03/25 12:14) Itchy Eyes Biaxin Allergy (Intermediate, Uncoded 09/03/25 12:14) rash nickel? Allergy (Intermediate, Uncoded 09/03/25 12:14) rash Medication List - Last Reconciled 09/03/25 by Neeta Pierce MD alpha lipoic acid 600 mg PO DAILY cephalexin 250 mg PO DAILY 90 days cholecalciferol (vitamin D3) 25 mcg PO DAILY d-mannose (AZO D-Mannose) mg PO docusate sodium (Colace) 100 mg PO DAILY estradiol (Vagifem) 10 mcg vaginal 2XW furosemide (Lasix) 20 mg PO DAILY glucosamine sulfate (Glucosamine) 500 mg PO DAILY loratadine (Claritin) 10 mg PO DAILY losartan 100 mg PO DAILY metoprolol succinate ER 50 mg PO DAILY nifedipine ER (Procardia XL) 60 mg PO DAILY zinc 50 mg PO DAILY Tobacco use date assessed: 09/03/25 Fall risk assessment: No Falls in past year Last assessed Fall Risk: 09/03/25 Dental Screening Dental Screen Date: 09/03/25 Did you have a dental visit in the last 12 months?: Yes Did you have a dental problem in the last 6 months where you did not have access to dental care?: No Was dental information given to patient?: Patient has dentist [facility] Medical History Osteopenia of left femoral neck Cholelithiasis Liver mass Recurrent UTI (urinary tract infection) Impaired fasting glucose Hypertriglyceridemia Vaginal dryness, menopausal Obesity Right nephrolithiasis History of basal cell carcinoma Seasonal allergies Essential hypertension Osteoarthritis of left knee Surgical History History of appendectomy S/P correction of deviated nasal septum H/O dilation and curettage History of colonoscopy H/O lithotripsy History of arthroplasty of left knee Family History Father Essential hypertension CVA (cerebral vascular accident) CVD (cardiovascular disease) Mother Essential hypertension Bone cancer Social History Housing: [facility] Alcohol intake: current Alcohol intake frequency: holidays/special occasions only Patient Tobacco Use Status: Former Tobacco user Tobacco use type: Cigarette Years Smoked: 5 yrs e-Cigarette/Vaping Use: Never Used Current occupational status: retired Cognitive needs: No Hearing needs: No Vision needs: Yes Questionnaire PHQ-9 Over the last 2 weeks, how often have you been bothered by any of the following problems? 1. Little interest or pleasure in doing things: not at all 2. Feeling down, depressed, or hopeless: not at all 3. Trouble falling or staying asleep, or sleeping too much: not at all 4. Feeling tired or having little energy: not at all 5. Poor appetite or overeating: not at all 6. Feeling bad about yourself - or that you are a failure or have let yourself or your family down: not at all 7. Trouble concentrating on things, such as reading the newspaper or watching television: not at all 8. Moving or speaking so slowly that other people could have noticed. Or the opposite - being so fidgety or restless that you have been moving around a lot more than usual: not at all 9. Thoughts that you would be better off or of hurting yourself in some way: not at all Total score: 0 Depression Screening Interpretation: Negative Depression Screening Done: Yes Source: Developed by Drs. Jeb Hunter, Radha Snell, Bebeto Smith and colleagues, with an educational amita from [employer]. Thrive Questionnaire Date Thrive assessed: 10/25/24 I am a: Patient What is your living situation today?: I have a steady place to live Within the past 12 months, did the food you bought not last and you didn't have the money to get more?: Never true Within the past 12 months, did you worry whether your food would run out before you got money to buy more?: Never true Do you have trouble paying for medicines?: No Do you have trouble getting transportation to medical appointments?: No Do you have trouble paying your heating and electricity bill?: No Do you have trouble taking care of your child, family member or friend?: No Do you have trouble with day-to-day activities such as bathing, preparing meals, shopping, managing finances, etc.?: No Are you currently unemployed and looking for a job?: No Are you interested in more education?: No Please select the resources that you would like help with: None Currently or been in a relationship where the following occur: No concerns reported THRIVE Score: 0 AUDIT C Alcohol Use Questionnaire (AUDIT-C) 1. How often do you have a drink containing alcohol?: Monthly or less 2. How many drinks containing alcohol do you have on a typical day when you are drinking?: 1 or 2 3. How often do you have six or more drinks on one occasion?: Never Total Score: 1 BOOM-7 AMB Questionnaire BOOM-7 Date BOOM - 7 assessed: 09/03/25 Feeling nervous, anxious, or on edge: 0 = Not at all Not being able to stop or control worryin = Not at all Worrying too much about different things: 0 = Not at all Trouble relaxin = Not at all Being so restless that it is hard to sit still: 0 = Not at all Becoming easily annoyed or irritable: 0 = Not at all Feeling afraid as if something awful might happen: 0 = Not at all Total BOOM-7 score (0-4 normal; 5-9 mild; 10-14 moderate; 15-21 severe): 0 Source: Developed by Drs. Jeb Hunter, Radha Snell, Bebeto Smith and colleagues, with an educational amita from [employer]. BOOM-7 Assessment Billing BOOM-7 Assessment Tool: BOOM-7 Assessment 38539 Review of Systems Const Reports no additional complaints Eyes Reports no additional complaints ENT Reports no additional complaints Card Reports no additional complaints Resp Reports no additional complaints GI Reports no additional complaints Reports as per HPI Musc Reports no additional complaints Skin/Breast Denies breast pain, Denies breast mass and Denies rash Neuro Reports no additional complaints Psych Reports no additional complaints Endo Reports no additional complaints Jeremias/Lymph Reports no additional complaints Aller/Immun Reports no additional complaints Physical exam (Primary Care) Vital Signs: Last Vital Signs Temp 97.9 F 09/03/25 11:51 Pulse 69 09/03/25 11:51 Resp 16 09/03/25 11:51 BP 138/70 09/03/25 11:51 Pulse Ox 95 09/03/25 11:51 Oxygen Delivery Method Room Air 09/03/25 11:51 BMI result Body Mass Index 31.0 Tobacco/Smoking Status: Tobacco use Status Tobacco use date assessed 09/03/25 09/03/25 11:58 Patient Tobacco Use Status Former Tobacco user 09/03/25 11:58 Tobacco use type Cigarette 09/03/25 11:58 e-Cigarette/Vaping Use Never Used 09/03/25 11:58 PHQ-9: PHQ-9 Score PHQ-9: Total score 0 09/03/25 12:15 Depression Screening Interpretation: Negative Thrive Assessment: Date of Thrive Assessment Date Thrive assessed 10/25/24 09/03/25 11:58 Currently or been in a relationship where the following occur: No concerns reported Const General: comfortable, no acute distress and alert Orientation/consciousness: patient oriented x3 HENMT Mouth: Normal oral and palatal mucosa present Eyes General: appearance normal, both eyes and all related structures Neck Neck: Yes full ROM, Yes no lymphadenopathy and Yes supple Resp Auscultation: clear to auscultation bilaterally Cardio Rate: regular rate Rhythm: regular rhythm Heart sounds: S1 normal heart sound present and S2 normal heart sound present GI Palpation (GI): Soft to palpation, nontender and no guarding Auscultation: normal bowel sounds General: Yes no CVA tenderness Back/Spine/Pelvis Back: no CVA tenderness and No back tenderness Skin General skin exam: no rashes or lesions noted Neuro General: patient oriented x3, gait normal, moves all extremities and no focal motor deficits Extrem General: Yes full ROM, Yes no joint enlargement, Yes no pedal edema, Yes no calf tenderness and Yes normal gait Psych Appearance: grossly normal and well kempt Mental Status: mental status grossly normal Speech and movement: Normal speech and movement present Affect: normal affect Attitude: cooperative Results Reviewed Results Reviewed: RUN: 09/03/25 1215 PAGE 1 [facility] [address] [place] [id number] Software Validation Engineer: Kennedy Vazquez M.D. Specimen Inquiry Name: oZya Yoon Age/Sex: 79/F : 1945 Unit#: [id number] Attend Dr: Neeta Pierce MD Re08/28/25 Status: DEP REF Location: [facility] Disch: SPEC : [id number] FUNMILAYO: 08/28/25 STATUS: COMP REQ : [id number] RECD: 08/28/[address]: Neeta Pierce MD COMP: 08/28/25 ENTERED: 08/28/[address] [facility] [address]: ORDERED: CBC Auto Diff Test Result Flag Reference WBC 9.0 4.8-10.8 X10*3/uL RBC 4.96 4.20-5.50 X10*6/uL HGB 14.5 12.0-16.0 g/dl HCT 45.7 37.0-47.0 % MCV 92.1 80.0-98.0 fL MCH 29.2 27.0-33.0 pg MCHC 31.7 31.0-35.0 g/dl RDW 12.9 11.0-16.0 % PLT 299 160-400 X10*3/uL MPV 10.7 9.4-12.3 fL Neut Pct Auto 69.5 45-73 % ImGran Pct Auto 0.4 0.0-0.4 % Lymp Pct Auto 20.4 20-40 % [place] Pct Auto 6.9 2-11 % Eos Pct Auto 2.2 0-4 % Baso Pct Auto 0.6 0-2 % NRBC Pct Auto 0.0 0.0-0.2 /100WBC ANC Neut Abs # 6.3 2.0-8.3 x10*3/uL ImGran Abs Auto 0.04 H 0.00-0.03 X10*3/uL Lymph Abs Auto 1.8 1.2-4.9 X10*3/uL [place] Abs Auto 0.6 0.1-1.2 X10*3/uL Eos Abs Auto 0.2 0.0-0.4 X10*3/uL Baso Abs Auto 0.1 0.0-0.2 X10*3/uL NRBC Abs Auto 0.000 0.0-0.012 X10*3/uL Name: Zoya Yoon Age/Sex: 79/F : 1945 Unit#: [id number] Attend Dr: Neeta Pierce MD Re08/28/25 Status: DEP REF Location: [facility] isch: SPEC : [id number] FUNMILAYO: 08/28/25 STATUS: COMP REQ : [id number] RECD: 08/28/251328 SUBM DR: Neeta Pierce MD COMP: 08/28/25 ENTERED: 08/28/25-1138 [facility] [address]: ORDERED: Met Prof Fast, AST, ALT, Lipid Panel, Vitamin D 25-OH Test Result Flag Reference Sodium 141 135-145 mmol/L Potassium 4.4 3.3-5.1 mmol/L CL 109 H 96-108 mmol/L CO2 21 L 22-29 mmol/L Gap 15 12-20 BUN 21 H 9-16 mg/dL Creat 0.92 0.5-1.4 mg/dL eGFR 59 Chronic Kidney Disease: Estimated GFR < 60 mL/min/1.73m2 Severe Kidney Disease: Estimated GFR < 15 mL/min/1.73m2 FBS 97 60-99 mg/dL CA 9.7 8.4-10.2 mg/dL AST (GOT) 21 5-31 U/L ALT (GPT) 16 0-31 U/L Triglyceride 287 H <150 mg/dL Desirable Triglyceride: less than 150 mg/dL Borderline High Triglyceride 150-199 mg/dL High Triglyceride: 200-499 mg/dL Very High Triglyceride: greater than or equal to 5OO mg/dL Cholesterol 201 H <200 mg/dL Desirable Cholesterol: less than 200 mg/dL Borderline High Cholesterol: 200-239 mg/dL High Cholesterol: greater than 239 mg/dL LDL Calculated 105 H <100 mg/dL Desirable LDL: less than 100 mg/dL Near Optimal/Above Optimal LDL: 110-129 mg/dL Borderline High LDL: 130-159 mg/dL High LDL: 160-189 mg/dL Very High LDL: greater than or equal to 190 mg/dL HDL 39 L >40 mg/dL Desirable HDL: greater than 40 mg/dL Note: This HDL assay may give artificially low results in patients with liver disease. Vitamin D 25-OH 61.4 >30 ng/mL Health Based Reference Values* < 20 ng/mL Deficient 20-30 ng/mL Insufficient > 30 ng/mL Sufficient Coding Level of Care Code Est Pt Level 4 (52237) Diagnoses Essential hypertension I10 Hypertriglyceridemia E78.1 Impaired fasting glucose R73.01 Additional Codes BOOM-7 Assessment Billing - BOOM-7 Assessment Tool: BOOM-7 Assessment 44506 ([id number]) Assessment & Plan Assessment & Plan (1) Essential hypertension: Code(s): I10 - Essential (primary) hypertension Category: Medical Plan: Continued on losartan 100 mg daily and metoprolol 50 mg once a day as well as nifedipine ER 60 mg daily (2) Hypertriglyceridemia: Code(s): E78.1 - Pure hyperglyceridemia Category: Medical Plan: Not much change in her triglyceride levels as compared to last time. Reinforced importance of adhering to healthy eating habits, avoiding a lot of junk food, avoid bedtime snacking and sugary sweet drinks. Forced importance of staying active, do at least 15 minutes of moderate intensity exercise daily. (3) Impaired fasting glucose: Code(s): R73.01 - Impaired fasting glucose Category: Medical Plan: Latest fasting blood sugar levels are now within normal limits at 97 mg/dL.. Impaired glucose metabolism increases the risk for developing diabetes mellitus type 2, as well as heart attack and stroke later on. Lifestyle changes that promotes weight loss, healthy eating habits, and regular exercise are important, and can prevent the progression to diabetes
== END 2025-09-03 12:37 | disposition home or self-care (01) ==
LOC: HO.HMCC 10:41
PROVIDERS: PCP Internal Medicine; Visit Provider Internal Medicine
DX: I10 Essential (primary) hypertension (principal); E78.1 Pure hyperglyceridemia; R73.01 Impaired fasting glucose

== ENCOUNTER → 2025-09-03 10:40 | Outpatient (BNVA) | payer MEDICARE, SELFPAY | PROVIDERS: PCP Internal Medicine; Visit Provider Internal Medicine | DX: I10 Essential (primary) hypertension (principal); E78.1 Pure hyperglyceridemia; R73.01 Impaired fasting glucose | CPT/HCPCS: 96127; 99212 ==

== ENCOUNTER 2025-09-25 11:51 | Outpatient (AMB) | payer MEDICARE, SELFPAY | END 2025-09-25 11:52 | disposition home or self-care (01) | LOC: HO.HMGAL 11:51 | PROVIDERS: PCP Internal Medicine; Visit Provider Registered Nurse Emergency | DX: J30.89 Other allergic rhinitis (principal) | CPT/HCPCS: 95117; 95165 ==

== ENCOUNTER 2025-10-03 13:32 | Outpatient (REF) | payer MEDICARE, SELFPAY ==
[2025-10-03 16:13] LABS: Appearance Urine Turbid; Glucose Urine UA Negative (Negative); PH 5.5 (5.0-9.0); Specific Gravity - Urine 1.020 (1.005-1.025); UMIC TRIGGER UA YES
--- OUTSIDE RECORDS SUMMARY | 2025-10-03 17:37 | XMS_ITS | Clinical Summary ---
Author Organization [facility] Address [address] [place] [address] Phone Care Team Providers Care Utility Repairer Name Role Phone Nona Pierce MD Primary Care Provider [phone] Allergies Active Allergy Reactions Criticality Noted Date [...] MG 24 hr tablet 12/23/2023 Act rosalba NIFEdipine XL (PROCARDIA XL) 60 MG 24 [...] TABLET DAILY 90 tablet 3 03/04/2025 Active losartan (COZAAR) 100 MG tablet TAKE 1 TABLET DAILY 90 tablet 3 08/26/2025 Active Active Problems Problem Noted Date Diagnosed Date Primary osteoarthritis of left knee 11/23/2021 Chronic kidney disease stage 1 11/16/2021 Hypertension 11/16/2021 Hypertensive renal disease 11/16/2021 Microalbuminuria 11/16/2021 History of left total knee replacement 0 Encounters Date Type Department Care Team Description 08/24/2025 Refill [facility] [address] [place] [address] Gurinder Wayne MD from Last 3 Months [...] Office Visit [facility] [address] [address] Gurinder Wayne MD [address] [phone] Health Maintenance Due Date Last Done Comments Pneumococcal Vaccine: 50+ Years (2 of 2 - PCV) 10/28/2010 10/28/2009 Influenza Vaccine (#1) 2025 2, 07/08/2022, 06/17/2019, Additional history exists Pneumococcal Vaccine: Peds (0 to 5 Years) and At-Risk Patients (6 to 49 Years) Discontinued 10/28/2009 Hepatitis B Vaccine Aged Out No longe r eligible based on patient's age to complete this topic Insurance [facility] Care Teams Utility Repairer Relationship Specialty Start Date End Date Nona Pierce MD PCP - General 10/27/20
--- OUTSIDE RECORDS SUMMARY | 2025-10-03 17:37 | XMS_ITS | Clinical Summary ---
Author Organization [facility] Address [address] [place] [phone] Phone Care Team Providers Care Rides Attendant Name Role Phone Neeta Pierce MD Primary [...] this topic Medical Devices Implanted Type Area Supervisor Cutting And Sewing Room Device Identifier Shelf Expiration Date Model / Serial / Lot Cement Bone Biomet Standard R 1x40 Us - [id number] Implanted:Qty: 2 on 07/21/2020 by Benito Keller MD at [facility] Left: Knee [employer]AL[employer] 08/16/2024 [id number] / / [id number] Knee Implant 62.5mm Component Femoral Vanguard Titanium Custom - [id number] Implanted:Qty: 1 on 07/21/2020 by Benito Keller MD at [facility] Left: Knee [employer] 06/05/2029 [id number] / / [id number] Tray 75mm Tibial Knee Vanguard Total Titanium Primary Interlock Cemented - [id number] Implanted:Qty: 1 on 07/21/2020 by Benito Keller MD at [facility] Left: Knee [employer] 07/18/2029 [id number] / / [id number] Beam I L 40mm Od 10 [employer] Specialist Stem Knee Prmary Stablzed Fnned Mpl Ascent Maxm - [id number] Implanted:Qty: 1 on 07/21/2020 by Benito Keller MD at [facility] Left: Knee [employer] 09/08/2029 [id number] / / [id number] Button Patella 34x8.5mm Knee Vanguard Uhmwpe Single Peg Series A Standard - [id number] Implanted:Qty: 1 on 07/21/2020 by Benito Keller MD at [facility] Left: Knee [employer] 01/26/2022 [id number] / / [id number] Knee Bearing 71 [id number] Tibial Vanguard Polyethylene Cruciate Retaining Lipped - [id number] Implanted:Qty: 1 on 07/21/2020 by Benito Keller MD at [facility] Left: Knee [employer] 01/02/2025 [id number] / / [id number] Procedures Procedure Name Priority Date/Time Associated Diagnosis Comments BASIC METABOLIC PANEL (BMP) Routine 07/23/2020 5:42 AM EDT from Last 3 Months or Most Recently Relevant to Health Maintenance Results * (ABNORMAL) Basic metabolic panel (07/23/2020 5:42 AM EDT) SODIUM 139 133 - 146 mmol/L [facility] CHLORIDE 103 96 - 108 mmol/L [facility] POTASSIUM 3.8 3.3 - 5.1 mmol/L [facility] CO2 26 21 - 35 mmol/L [facility] BUN 18 6 - 19 mg/dL [facility] CREATININE 0.80 0.5 - 1.5 mg/dL [facility] GLUCOSE 110(H) 70 - 99 mg/dL [facility] CALCIUM 9.0 8.4 - 10.3 mg/dL [facility] EGFR 73 >59 mL/min/1.7 3m2 [facility] Comment:Estimated glomerular filtration rate calculated using the CKD-EPI equation. ANION GAP 14 10 - 20 mmol/L [facility] Blood 07/23/2020 5:42 AM EDT 07/23/2020 6:07 AM EDT Benito Keller MD LAB BLOOD BKR ORDERABLES Final Result [address] [address] from Last 3 Months or Most Recently Relevant to Health Maintenance Insurance [place] BLUE REPLACEMENT [facility] MEDICARE PPO BLUE REPLACEMENT [facility] MEDICARE PPO BLUE REPLACEMENT [facility] MEDICARE PPO BLUE REPLACEMENT [facility] MEDICARE PPO BLUE REPLACEMENT * Guarantor: Blood, Zoya Account Type Relation to Patient Date of Phone Billing Address Personal/Family Self [address] [place] [address] [facility] MEDICARE PPO BLUE REPLACEMENT * Guarantor: Blood Zoya Account Type Relation to Patient Date of Phone Billing Address Personal/Family Self [address] [place] [address] [facility] MEDICARE PPO BLUE REPLACEMENT * Guarantor: Blood Zoya Account Type Relation to Patient Date of Phone Billing Address Personal/Family Self [address] [place] [address] [facility] MEDICARE PPO BLUE REPLACEMENT [place] [address] [employer] [place] MEDIC[place] BLUE REPLACEMENT Advance Directives For more information, please contact: [phone] (9AM - 5PM [facility], Tuesday-Tuesday) Documents on File Type Date Recorded Patient Insurance Attorney Expl anation Healthcare Proxy 07/24/2020 8:26 AM * Full Code (Latest Code Status on File) Date Activated Date Inactivated Comments 07/21/2020 10:57 AM Question Answer Comments Code Status Confirmed With: Patient Code Status Communicated To: Inpatient Attending Care Teams Rides Attendant Relationship Specialty Start Date End Date Neeta Pierce MD [address] [address] PCP - General Internal Medicine 03/31/20 Additional Source Comments The information contained in this document represents components of the legal health record. It is not the complete legal health record.[facility]
--- OUTSIDE RECORDS SUMMARY | 2025-10-03 17:38 | XMS_ITS | Encounter Summary ---
Author Organization [facility] Address [address] [place] [phone] Phone Care Team Providers Care Metallurgist Process Name Role Phone Neeta Pierce MD Primary Care Provider Encounter Details Date Type Department Care Team (Late st Contact Info) Description 07/21/2020 Procedure Pass [place] Admitting Dept - Virtual Department [address] [place] [address] Social History Tobacco Use Types Packs/Day Years [...] on filedocumented in this encounter Care Teams Metallurgist Process Relationship Specialty Start Date End Date Neeta Pierce MD [address] [place] [address] PCP - General Internal Medicine 03/31/20 documented as of this encounter Additional Source Comments The information contained in this document represents components of the legal health record. It is not the complete legal health record.[facility]
== END 2025-10-03 13:33 | disposition home or self-care (01) ==
LOC: HO.HMGCLDS 13:32
PROVIDERS: PCP Internal Medicine; Visit Provider Urology
DX: N39.0 Urinary tract infection, site not specified (principal)
CPT/HCPCS: 81001; 87086